=== PATIENT | male | born 1980 | race African-American/Black ===

== ENCOUNTER 2022-02-23 12:28 | Inpatient (IN) | payer OTHER ==
[~2022-02-23] VITALS: Ht 188 cm; Wt 86.6 kg
[2022-02-23 16:00] VITALS: BP 131/80
[2022-02-23] MEDS ORDERED: LORAZEPAM 1 MG TABLET FOR AGITATION PO PRN (17:30)
[2022-02-23] MEDS ORDERED: ACETAMINOPHEN ES 500 MG TABLET PO PRN (17:30)
[2022-02-23] MEDS ORDERED: MAGNESIUM HYDROXIDE 30 ML UDC PO PRN (17:30)
[2022-02-23] MEDS ORDERED: MAG HYDROX/AL HYDROX/SIMETH 30 ML UDC PO PRN (17:30)
[2022-02-23] MEDS ORDERED: IBUPROFEN 200 MG TABLET PO PRN (17:30)
--- NOTE | 2022-02-23 18:39 | NUR ---
ROLLER HELPER NOTES PATIENT ARRIVED ABLE TO AMBULATE ON OWN NO ASSISTIVE DEVICES, A&O X4, 41 YEAR OLD MALE HERE FOR A CLINICAL TRIAL FOR SCHIZOPHRENIA, PT SMOKES, PT STATES HE HEARS VOICES SOME SAY GOOD POSITIVE THINGS, SOME BAD NEGATIVE THINGS, I WILL TRY TO FIND OUT EXACTLY WHAT THEY ARE SAYING AND WHAT THEY SOUND LIKE TO TRY TO UNDERSTAND THIS FURTHER, HE STATES HE BELIEVES HE HAS A SOUL AND THIS LIFE CAN NOT BE ALL THAT THERE IS AND THAT HIS SOUL HAS TO GO SOMEWHERE AND THAT HE IS SCARED TO , PROVIDED REASSURANCE HE IS SAFE HERE AND NO ONE WILL HURT HIM WHILE HE IS HERE IN OUR CARE, ABLE TO COMPLETE ALL ADLS BY HIMSELF AND ABLE TO MAKE ALL NEEDS KNOWN, REQUESTS CIGARETTE BREAKS OFTEN AND SMOKES MENTHOL CIGARRETTES. WATER AND JUICE PROVIDED AND WILL CONTINUE TO MONITOR
--- NOTE | 2022-02-23 19:10 | NUR ---
GPS RN OPENING NOTE RECEIVED PATIENT UP IN ACTIVITY ROOM. PATIENT IS ALERT AND ORIENTED X 4. ABLE TO MAKE NEEDS KNOWN. APPEARANCE IS WELL KEPT. DENIES PAIN AT THIS TIME. AMBULATORY WITH STEADY GAIT. TOOK SHOWER TONIGHT. HAS SMOKE BREAKS. CONTINUES ON CLINICAL TRIAL. ENCOURAGED TO VERBALIZE FEELINGS AND NEEDS. WILL CONTINUE TO MONITOR FOR SAFETY .
[2022-02-23 19:47] VITALS: BP 134/79
[2022-02-23] MEDS: risperiDONE 1 MG TABLET PO SCH (21:18)
[2022-02-23] MEDS ORDERED: ZOLPIDEM TARTRATE 10 MG TABLET PO PRN ×2 (22:00)
--- NOTE | 2022-02-24 06:10 | NUR ---
GPS RN CLOSING NOTE PATIENT CURRENTLY SLEEPING IN BED. ALERT AND ORIENTED X 4. ABLE TO MAKE NEEDS KNOWN. APPEARANCE IS WELL KEPT. DENIES PAIN AT THIS TIME. AMBULATORY WITH STEADY GAIT. TOOK SHOWER TONIGHT. HAS SMOKE BREAKS. COMPLIANT WITH MEDICATIONS. CONTINUES ON CLINICAL TRIAL. ENCOURAGED TO VERBALIZE FEELINGS AND NEEDS. WILL ENDORSE PLAN OF CARE TO ONCOMING SHIFT.
[2022-02-24 08:00] VITALS: BP 139/89
--- NOTE | 2022-02-24 09:57 | NUR ---
RN-CO: PATIENT DENIED PAIN AND DISCOMFORTS. ABLE TO MAKE NEEDS KNOWN. GOES OUT TO SMOKE. HE HAS MILD ANXIETY AND IRRITABLE. I WILL CONTINUE TO MONITOR AND NOTIFY .
[2022-02-24 16:00] VITALS: BP 132/75
--- NOTE | 2022-02-24 19:15 | NUR ---
GPS RN NOTES: PATIENT IS IN HIS ROOM AWAKE, ALERT AND ORIENTED X3. ABLE TO MAKE NEEDS KNOWN. NO S/S OF ACUTE DISTRESS NOTED. PATIENT GOES OUT TO SMOKE. PATIENT IS NEEDY, IRRITABLE AT TIMES, COOPERATIVE TO CARE, INTERACTS WHEN ENGAGED. PATIENT STILL HEARING VOICES "TELLING HIM TO STAY AWAY FROM SOMEONE". PATIENT ADMITTED HAVING VISUAL HALLUCINATIONS. PATIENT STATES "SEEING TWO RABBITS". DENIES SI/HI AT THIS TIME. SAFETY PRECAUTIONS IN PLACE. WILL CONTINUE TO MONITOR Q15MIN ROUNDS FOR SAFETY AND BEHAVIOR.
[2022-02-24 19:54] VITALS: BP 123/90
[2022-02-24] MEDS: risperiDONE 1 MG TABLET PO SCH (21:16)
[2022-02-25 08:00] VITALS: BP 124/81
--- NOTE | 2022-02-25 09:00 | NUR ---
Received patient alert poor insight ,poor judgment ,easily irritable and anxious ,med compliant .Continue to monitor for safety q15 minutes redirect as needed .Encourage patient to verbalize feelings and thoughts .
--- NOTE | 2022-02-25 13:00 | NUR ---
Patient easily irritable and anxious ,visible in the unit ,socialize with select peers, patient hearing voices telling him different things ,no plan for self care .Continue to monitor for safety q15 minutes ,redirect as needed Encourage patient to verbalize feelings and thoughts .
[2022-02-25 16:00] VITALS: BP 131/83
--- NOTE | 2022-02-25 19:46 | NUR ---
GPS RN OPENING NOTES: RECEIVED PATIENT IN ROOM, AWAKE, A/O X4. APPROPRIATE AFFECT, PASSIVE, LABILE. PATIENT DENIES A/V HALLUCINATIONS, DENIES SI/HI AT THIS TIME. PATIENT IS COMPLIANT WITH TREATMENT REGIMEN. NO S/S OF DISTRESS. RESPIRATION EVEN AND UNLABORED WITH EQUAL RISE AND FALL OF THE CHEST, ON ROOM AIR. PATIENT ASKED FOR SNACKS. OFFERED FLUID AND SNACKS TOLERATED. BED IN LOW LOCKED POSITION, CALL CARTY WITHIN REACH. WILL CONTINUE TO MONITOR Q15 FOR MOOD, SAFETY AND BEHAVIOR.
[2022-02-25 20:00] VITALS: BP 129/86
[2022-02-25] MEDS: risperiDONE 1 MG TABLET PO SCH (22:12)
--- NOTE | 2022-02-25 22:12 | NUR ---
GPS RN NOTES: RISPERDAL 0.5MG WASTED PER PARTIAL DOSE ORDER. PATIENT IS COMPLIANT WITH MEDICATIONS.
--- NOTE | 2022-02-26 07:00 | NUR ---
GPS RN NOTES PATIENT WENT OUT FOR SMOKE BREAKS. WILL ENDORSE TO AM SHIFT NURSE FOR CONTINUITY OF CARE.
[2022-02-26 08:00] VITALS: BP 138/90
[2022-02-26 16:00] VITALS: BP 112/74
--- NOTE | 2022-02-26 19:30 | NUR ---
RN NOTES: PATIENT RESTING HIS ROOM AWAKE, ALERT . ABLE TO MAKE NEEDS KNOWN. NO S/S OF ACUTE DISTRESS NOTED. PATIENT NEEDY, IRRITABLE AT TIMES, COOPERATIVE TO CARE. PATIENT SOME TIMES HEARING VOICES "TELLING HIM TO STAY AWAY FROM SOMEONE". PATIENT ADMITTED HAVING VISUAL HALLUCINATION. DENIES SI/HI AT THIS TIME. SAFETY PRECAUTIONS IN PLACE. WILL CONTINUE TO MONITOR Q15MIN ROUNDS FOR SAFETY AND BEHAVIOR.
[2022-02-26 20:00] VITALS: BP 129/80
[2022-02-26] MEDS: risperiDONE 1 MG TABLET PO SCH (22:07)
--- NOTE | 2022-02-27 06:51 | NUR ---
GPS RN NOTES: PATIENT WENT OUT FOR FRESH AIR. WILL ENDORSE TO DAY SHIFT NURSE FOR CONTINUITY OF CARE.
--- NOTE | 2022-02-27 08:30 | NUR ---
GPS/RN RECEIVED PT IN ROOM, RESTING, A/O X4, LABILE. PATIENT DENIES A/VH AND SI/HI AT THIS TIME. PATIENT IS COMPLIANT WITH TREATMENT REGIMEN. NO S/S OF DISTRESS NOTED. ALL NEEDS ATTENDED AND ANTICIPATED . WILL CONTINUE TO MONITOR Q15 FOR MOOD, SAFETY AND BEHAVIOR.
[2022-02-27 16:00] VITALS: BP 123/58
--- NOTE | 2022-02-27 19:31 | NUR ---
RN NOTES: PATIENT IN HIS ROOM AWAKE, ALERT . ABLE TO MAKE NEEDS KNOWN. NO S/S OF ACUTE DISTRESS NOTED. PATIENT NEEDY, IRRITABLE AT TIMES, COOPERATIVE TO CARE. PATIENT SOME TIMES HEARING VOICES "TELLING HIM TO STAY AWAY FROM SOMEONE". PATIENT ADMITTED HAVING VISUAL HALLUCINATION. DENIES SI/HI AT THIS TIME. SAFETY PRECAUTIONS IN PLACE. WILL CONTINUE TO MONITOR Q15MIN ROUNDS FOR SAFETY AND BEHAVIOR.
[2022-02-27 20:00] VITALS: BP 133/73
[2022-02-28 16:00] VITALS: BP 121/65
--- NOTE | 2022-02-28 19:30 | NUR ---
GPS RN NOTE, RECEIVED PATIENT AWAKE AND IN BED, NO S/S OR COMPLAINTS OF PAIN AT THIS TIME. PATIENT IS DISPLAYING NO S/S OF APPARENT DISTRESS AT THIS TIME. PATIENT BREATHING IS UNLABORED WITH EQUAL RISE AND FALL OF THE CHEST. PATIENT IS ALERT AND ORIENTED X 3 ON ROOM AIR WITH A SPO2 99%. PATIENT IS COMPLIANT WITH MEDICATIONS, ANXIOUS, POLITE, MAKES NEEDS KNOWN, AND COOPERATIVE. PATIENT DENIES SUICIDAL AND HOMICIDAL IDEATIONS AT THIS TIME. PATIENT ASSISTED WITH TURNING AND REPOSITIONING Q2HR AND PRN FOR COMFORT AND CIRCULATION. PATIENT HAS NO NEEDS AT THIS TIME. PATIENT EDUCATED ON THE USE OF THE CALL CARTY. PATIENT BED SIDE RAILS UP X 2 FOR SAFETY. PATIENT BED IS LOCKED, LOW, WITH BED ALARM ON. WILL CONTINUE TO MONITOR THIS PATIENT Q15 MINUTES WITH THE HELP OF STAFF TO MAINTAIN SAFETY.
[2022-02-28 20:20] VITALS: BP 123/74
[2022-03-01 08:00] VITALS: BP 155/92
--- NOTE | 2022-03-01 09:13 | NUR ---
NOTED PATIENT AWAKE, SINGING INSIDE HIS ROOM AND TALKING TO SELF. HE DENIED PAIN AND DISCOMFORTS. HE IS EASILY IRRITATED IF WANTS NOT GRANTED RIGHT AWAY. I WILL CONTINUE TO MONITOR AND NOTIFY .
[2022-03-01 16:00] VITALS: BP 126/79
[2022-03-01 20:05] VITALS: BP 125/72
--- NOTE | 2022-03-01 22:34 | NUR ---
Patient appears to be paranoid,guarded,blunted affect,noted mumbling and talking to self,responding to internal stimuli.No s/s of EPS t/tremors noted.Will continue to monitor q15 min rounds for safety.
--- NOTE | 2022-03-02 09:00 | NUR ---
Patient alert ,verbally responsive ,med compliant ,no interaction with peers ,stay in his room all day ,no s/s of distress noted will continue to monitor for safety q15 minutes .
[2022-03-02] MEDS ORDERED: ZOLPIDEM TARTRATE 10 MG TABLET PO PRN (12:00)
[2022-03-02] MEDS ORDERED: LORAZEPAM 1 MG TABLET FOR AGITATION PO PRN (12:00)
--- NOTE | 2022-03-02 13:00 | NUR ---
Patient remains isolative and withdrawn, refused to attend groups,no s/s of distress noted will continue to monitor for safety q15 minutes .
[2022-03-02 20:35] VITALS: BP 132/81
--- NOTE | 2022-03-02 20:47 | NUR ---
Called Pharmacy for the investigational medication of the patient that is scheduled at 20:00.The medication was brought to the unit at 20:50.
[2022-03-02] MEDS: INVEST MED MK-8189-008-02 MISC 1 DOSE PO SCH (20:53)
--- NOTE | 2022-03-02 21:00 | NUR ---
Patient remains isolative,withdrawn,unmotivated,guarded and paranoid upon approach,no verbalization of thoughts and feelings.patient took his investigational medication tonight,no c/o of EPS ,tremors at this time.will continue to monitor q15 min rounds for safety.
--- NOTE | 2022-03-03 09:00 | NUR ---
Received patient alert verbally responsive ,poor insight ,poor judgment easily irritable and anxious ,med compliant,patient hearing voices Continue to monitor for safety q15 minutes ,redirect as needed Encourage patient to verbalize feelings and thoughts .
--- NOTE | 2022-03-03 13:00 | NUR ---
Patient isolative and withdrawn ,refused to attend groups, stay in his room all day ,no plan for self care .will continue to monitor for safety ,encourage patient to verbalize feelings and thoughts ,redirect as needed.
[2022-03-03 16:00] VITALS: BP 100/51
[2022-03-03] MEDS: INVEST MED MK-8189-008-02 MISC 1 DOSE PO SCH (20:07)
--- NOTE | 2022-03-04 06:53 | NUR ---
patient alert,oriented x 3-4,appears to be depressed,blunted affect,mumbling ,talking loud,no s/s of EPS tremors noted.Compliant with investigational medications.Will continue to monitor q15 min rounds for safety.
[2022-03-04 08:00] VITALS: BP 126/89
--- NOTE | 2022-03-04 13:07 | NUR ---
RN-CO: Patient is visible in the unit, watching tv and smokes most of the time. Patient denied pain and discomforts. Stated that he still has auditory and visual hallucinations that is on and off. We will continue to monitor and notify Dr Gomez.
[2022-03-04 20:00] VITALS: BP 125/81
[2022-03-04] MEDS: INVEST MED MK-8189-008-02 MISC 1 DOSE PO SCH (20:16)
--- NOTE | 2022-03-05 09:20 | NUR ---
RN-CO: PATIENT IS VISIBLE IN THE UNIT, REDIRECTABLE, FOLLOWS DIECTIONS. DENIED PAIN AND DISCOMFORTS. WE WILL CONTINUE TO MONITOR.
[2022-03-05 16:00] VITALS: BP 98/58
[2022-03-05 20:00] VITALS: BP 115/76
[2022-03-05] MEDS: INVEST MED MK-8189-008-02 MISC 1 DOSE PO SCH (20:17)
--- NOTE | 2022-03-05 20:22 | NUR ---
RN NOTES: PATIENT RESTING HIS ROOM AWAKE, ALERT . ABLE TO MAKE NEEDS KNOWN. NO S/S OF ACUTE DISTRESS NOTED.EASILY IRRITABLE AT TIMES, COOPERATIVE TO CARE. PATIENT SOME TIMES HEARING VOICES ". PATIENT ADMITTED,ENCOURAGED PT. TO VERBALIZED ANY FEELING OR CONCERN . DENIES SI/HI AT THIS TIME. SAFETY PRECAUTIONS PLACE. WILL CONTINUE TO MONITOR. Q15MIN ROUNDS FOR SAFETY AND BEHAVIOR.
[2022-03-06 08:00] VITALS: BP 133/66
--- NOTE | 2022-03-06 09:00 | NUR ---
GPS/RN RECEIVED PATIENT RESTING IN THE ROOM NO S/S DISTRESS NOTED AT THIS TIME DENIES SI/HI AVH. DENIED PAIN AND DISCOMFORTS. NO AM MEDS ADMINISTERED NOT SCHEDULED.ALL NEEDS ATTENDED AND ANTICIPATED. WILL CONTINUE MONITORING FOR SAFETY AND BEHAVIOR Q 15 MIN
--- NOTE | 2022-03-06 19:35 | NUR ---
GPS/RN OPENING NOTE: RECEIVED PATIENT RESTING IN THE ROOM, SLEEPING INTERMITTENTLY, NO S/S DISTRESS NOTED AT THIS TIME, DENIES SI/HI AVH. DENIED PAIN AND ANY DISCOMFORT. ALL NEEDS ATTENDED AND ANTICIPATED. WILL CONTINUE MONITORING FOR SAFETY AND BEHAVIOR Q 15 MIN
[2022-03-06] MEDS: INVEST MED MK-8189-008-02 MISC 1 DOSE PO SCH (20:08)
[2022-03-06 20:20] VITALS: BP 119/67
--- NOTE | 2022-03-07 06:31 | NUR ---
GPS RN NOTE PATIENT SLEPT WELL AT NIGHT, MED COMPLAINT. NO ACUTE CHANGES NOTED. WILL ENDORSE TO AM RN FOR CONTINUITY OF CARE.
--- NOTE | 2022-03-07 09:03 | NUR ---
Pt. step out in the unit at approximately 7:00 AM and until 9:00 AM pt. is not back yet. Dr. Gomez was called to notify and left a message.
--- NOTE | 2022-03-07 09:07 | NUR ---
Pt. is back in the unit at 0910. No distress and ambulatory.
--- NOTE | 2022-03-07 10:43 | NUR ---
RN Notes: Pt. ate 100% for breakfast.took shower and interacts minimally to staffs. Encouraged to verbalize feelings and motivated to attend group activity. No distress and no agitation noted. Needs attended and will continue to monitor for safety.
--- NOTE | 2022-03-07 15:51 | NUR ---
Pt. step out in the unit about 12:00 noon and not back yet until 1550, notified Dr. Gomez and said to call him when he comes back.
--- NOTE | 2022-03-07 17:45 | NUR ---
Pt. just came back in the unit. Ambulatory and without distress.
[2022-03-07 18:01] VITALS: BP 139/96
--- NOTE | 2022-03-07 18:08 | NUR ---
Dr. Gomez spoke to the pt. on the phone.
[2022-03-07] MEDS: INVEST MED MK-8189-008-02 MISC 1 DOSE PO SCH (20:03)
[2022-03-07 20:07] VITALS: BP 123/78
--- NOTE | 2022-03-07 20:30 | NUR ---
GPS RN NOTE, RECEIVED PATIENT AWAKE AND IN BED, NO S/S OR COMPLAINTS OF PAIN AT THIS TIME. PATIENT IS DISPLAYING NO S/S OF APPARENT DISTRESS AT THIS TIME. PATIENT BREATHING IS UNLABORED WITH EQUAL RISE AND FALL OF THE CHEST. PATIENT IS ALERT AND ORIENTED X 3 ON ROOM AIR WITH A SPO2 96%. PATIENT IS COMPLIANT WITH MEDICATIONS, ANXIOUS, POLITE, MAKES NEEDS KNOWN, AND COOPERATIVE. PATIENT DENIES SUICIDAL AND HOMICIDAL IDEATIONS AT THIS TIME. PATIENT ASSISTED WITH TURNING AND REPOSITIONING Q2HR AND PRN FOR COMFORT AND CIRCULATION. PATIENT HAS NO NEEDS AT THIS TIME. PATIENT EDUCATED ON THE USE OF THE CALL CARTY. PATIENT BED SIDE RAILS UP X 2 FOR SAFETY. PATIENT BED IS LOCKED, LOW, WITH BED ALARM ON. WILL CONTINUE TO MONITOR THIS PATIENT Q15 MINUTES WITH THE HELP OF STAFF TO MAINTAIN SAFETY.
[2022-03-08 16:00] VITALS: BP 137/85
--- NOTE | 2022-03-08 19:20 | NUR ---
GPS RN NOTES: PATIENT NOT IN UNIT, PER AM SHIFT PATIENT WENT OUT FOR A SMOKE. Addendum: 03/08/22 at 1943 by ADDIS BENAIVDES RN CHARTED ON WRONG PATIENT
--- NOTE | 2022-03-08 19:48 | NUR ---
GPS RN OPENING NOTES: RECEIVED PATIENT IN ROOM, AWAKE, A/O X4. APPROPRIATE AFFECT, CALM AND COOPERATIVE, PASSIVE. DENIES A/V HALLUCINATIONS, DENIES SI/HI AT THIS TIME. PATIENT IS COMPLIANT WITH TREATMENT REGIMEN. NO S/S OF DISTRESS. RESPIRATION EVEN AND UNLABORED WITH EQUAL RISE AND FALL OF THE CHEST, ON ROOM AIR. OFFERED FLUID AND SNACKS TOLERATED. BED IN LOW LOCKED POSITION, CALL CARTY WITHIN REACH. WILL CONTINUE TO MONITOR Q15 FOR MOOD, SAFETY AND BEHAVIOR.
[2022-03-08 19:55] VITALS: BP_SYST 122; BP_SYST 140; BP_DIAS 80; BP_DIAS 88
[2022-03-08] MEDS: INVEST MED MK-8189-008-02 MISC 1 DOSE PO SCH (20:19)
--- NOTE | 2022-03-08 22:26 | NUR ---
GPS RN NOTES: PATIENT REFUSED WEEKLY SKIN ASSESSMENT. PER PATIENT HIS SKIN IS INTACT.
[2022-03-09 08:00] VITALS: BP 129/90
--- NOTE | 2022-03-09 08:00 | NUR ---
Patient alert ,verbally responsive ,poor insight ,patient stay in his room all day,refused to atten ,no interaction with peers no plan for self care will continue to monitor for safety ,redirect as needed .
[2022-03-09] MEDS ORDERED: ZOLPIDEM TARTRATE 10 MG TABLET PO PRN (12:00)
[2022-03-09] MEDS ORDERED: LORAZEPAM 1 MG TABLET FOR AGITATION PO PRN (12:00)
--- NOTE | 2022-03-09 13:00 | NUR ---
Patient easily irritable and anxious,no interaction with peers ,refused to attend groups ,no plan for self care will continue to monitor for safety redirect as needed ,encourage patient to verbalize feelings and thoughts .
[2022-03-09 16:00] VITALS: BP 106/63
--- NOTE | 2022-03-09 19:25 | NUR ---
GPS RN OPENING NOTES: RECEIVED PATIENT IN ROOM, AWAKE, A/O X4. FLAT AFFECT, CALM, PASSIVE, WITHDRAWN. PATIENT ADMITS TO AUDITORY HALLUCINATIONS, PER PATIENT THE LAST ONE WAS THIS MORNING WITH VOICES TELLING HIM TO HURT OTHER PEOPLE BUT DENIES SI/HI AT THIS TIME. PATIENT STATED THE VOICES LAST FOR 10-15MINS. EDUCATION PROVIDED. PATIENT IS COMPLIANT WITH TREATMENT REGIMEN. NO S/S OF DISTRESS. RESPIRATION EVEN AND UNLABORED WITH EQUAL RISE AND FALL OF THE CHEST, ON ROOM AIR. OFFERED FLUID AND SNACKS TOLERATED. BED IN LOW LOCKED POSITION, CALL CARTY WITHIN REACH. WILL CONTINUE TO MONITOR Q15 FOR MOOD, SAFETY AND BEHAVIOR.
[2022-03-09 20:00] VITALS: BP 128/81
[2022-03-09] MEDS: INVEST MED MK-8189-008-02 MISC 1 DOSE PO SCH (20:07)
--- NOTE | 2022-03-10 18:55 | NUR ---
UNEVENTFUL DAY,VITALS STABLE.SOMEWHAT ISOLATIVE.
[2022-03-10 19:50] VITALS: BP 140/89
--- NOTE | 2022-03-10 19:50 | NUR ---
GPS RN NOTES PATIENT WAS TRANSFERRED TO [facility]. REPORT GIVEN TO ROLAN ALVAREZ FOR CONTINUITY OF CARE. PATIENT IS ALERT AND ORIENTED X4. NO S/SX OF ACUTE DISTRESS NOTED. PATIENT DENIES SI/HI/AVH AT THIS TIME. SENT PERSONAL BELONGINGS TO PATIENT.
--- NOTE | 2022-03-10 19:55 | NUR ---
MS RN NOTE RECEIVED PT FROM GPS, ACCOMPANIED BY GPS RN, TO [id number]. PT AMBULATORY WITH STEADY GAIT. PT A/OX4, PLEASANT BUT DOES NOT ENGAGE IN CONVERSATION, PASSIVE, COOPERATIVE. RESPIRATIONS EVEN/UNLABORED. ORIENTED TO UNIT, STAFF, SMOKING POLICY, HEALTH/MED TEACHINGS, AND OTHER SAFETY PROTOCOLS. PT VERBALIZED UNDERSTANDING. PT IN NO DISTRESS. SAFETY MEASURES IN PLACE. WILL CONT TO MONITOR.
[2022-03-10] MEDS: INVEST MED MK-8189-008-02 MISC 1 DOSE PO SCH (20:08)
--- NOTE | 2022-03-11 06:50 | NUR ---
RN NOTE PT AWAKE IN BED, A/OX4, DENIES ANY PAIN OR DISCOMFORT. SLEPT WELL DURING THE NIGHT. NO BEHAVIORAL ISSUES THIS SHIFT. INSTRUCTED TO CALL FOR ANY ASSISTANCE NEEDED. PT VERBALIZED UNDERSTANDING.
--- NOTE | 2022-03-11 07:50 | NUR ---
RN OPENING NOTE PATIENT IN BED RESTING, AWAKE, A/O X 4. NO S/S OF PAIN NOTED AT THIS TIME. ON ROOM AIR NO DISTRESS OR SHORTNESS OF BREATH NOTED. NO IV ACCESS, CLINICAL TRIAL PATIENT . FALL AND SAFETY MEASURES IN PLACE, BED IN LOW AND LOCK POSITION, CALL LIGHT AND TABLE WITHIN EASY REACH, SIDE RAILS UP X2. WILL CONTINUE TO MONITOR.
--- NOTE | 2022-03-11 18:54 | NUR ---
RN CLOSING NOTE PATIENT IN BED RESTING, AWAKE, A/O X 4. NO S/S OF PAIN NOTED AT THIS TIME. ON ROOM AIR NO DISTRESS OR SHORTNESS OF BREATH NOTED. NO IV ACCESS, CLINICAL TRIAL PATIENT. FALL AND SAFETY MEASURES IN PLACE, BED IN LOW AND LOCK POSITION, CALL LIGHT AND TABLE WITHIN EASY REACH, SIDE RAILS UP X2. WILL ENDORSE TO EQUAL EMPLOYMENT OPPORTUNITY OFFICER.
[2022-03-11] MEDS: INVEST MED MK-8189-008-02 MISC 1 DOSE PO SCH (20:13)
--- NOTE | 2022-03-12 06:35 | NUR ---
CLOSING NOTES: alert and orientated X$ goes out to smoke steady gait soft spoken no mentioned hallucinations this 12 hours slept soundly
--- NOTE | 2022-03-12 07:30 | NUR ---
MS RN OPENING NOTES RECEIVED PATIENT ON BED, AWAKE AND A/O X4. ON ROOM AIR TOLERATING WELL. NO SOB NOTED. NOT IN DISTRESS. WITH NO COMPLAINTS OF PAIN OR DISCOMFORT AT THIS TIME. WITH NO IV ACCESS. ON CLINICAL TRIAL STATUS. SAFETY MEASURES IN PLACED. CALL LIGHT WITHIN REACH. BED ON LOWEST LOCKED POSITION, SIDE RAILS UP X2. WILL CONTINUE TO MONITOR.
--- NOTE | 2022-03-12 19:33 | NUR ---
MS RN CLOSING NOTES PATIENT ON BED, AWAKE AND A/O X4. ON ROOM AIR TOLERATING WELL. NO SOB NOTED. NOT IN DISTRESS. WITH NO COMPLAINTS OF PAIN OR DISCOMFORT AT THIS TIME. WITH NO IV ACCESS. ON CLINICAL TRIAL STATUS. SAFETY MEASURES IN PLACED. CALL LIGHT WITHIN REACH. BED ON LOWEST LOCKED POSITION, SIDE RAILS UP X2. WILL ENDORSE TO NEXT SHIFT FOR ERIK.
[2022-03-12] MEDS: INVEST MED MK-8189-008-02 MISC 1 DOSE PO SCH (20:05)
[2022-03-13] VITALS: BP 96/51
--- NOTE | 2022-03-13 03:43 | NUR ---
RN CLOSING NOTES: alert and orientated X$ AMbulates in the hallway steady on his legs. Clinical Trial patient no hallucinations mentioned this 12 hour pleasent smiling and cooperative good eye contact speech clear
--- NOTE | 2022-03-13 07:00 | NUR ---
MS RN OPENING NOTES PATIENT LAYING IN BED, A/O X 4, ABLE TO MAKE NEEDS KNOWN. TOLERATING WELL ON ROOM AIR WITH NO SOB OR S/S RESPIRATORY DISTRESS. NO COMPLAINTS OF PAIN OR DISCOMFORT AT THIS TIME. SAFETY MEASURES IN PLACE: BED IN LOWEST LOCKED POSITION, SIDE RAILS UP X 2, CALL LIGHT WITHIN REACH. WILL CONTINUE TO MONITOR.
[2022-03-13 08:00] VITALS: BP 123/89
[2022-03-13 16:00] VITALS: BP 141/86
--- NOTE | 2022-03-13 19:10 | NUR ---
MS RN OPENING NOTES RECEIVED PATIENT ON BED; AWAKE, ALERT AND ORIENTED X4. ON ROOM AIR, TOLERATING WELL. NO SHORTNESS OF BREATH NOTED. NOT IN ANY FORM OF ACUTE DISTRESS. DENIES ANY PAIN OR DISCOMFORT AT THIS TIME. ON CLINICAL TRIAL. SAFETY MEASURES IMPLEMENTED: CALL BUTTON AND TABLE WITHIN EASY REACH, SIDE RAILS UP X2, BED IN LOWEST LOCKED POSITION. WILL CONTINUE TO MONITOR.
[2022-03-13 20:15] VITALS: BP 136/86
[2022-03-13] MEDS: INVEST MED MK-8189-008-02 MISC 1 DOSE PO SCH (20:16)
--- NOTE | 2022-03-14 06:50 | NUR ---
MS RN CLOSING NOTES PATIENT ON BED, AWAKE, A/O X4. ON ROOM AIR, TOLERATING WELL. NO SOB NOTED. IN NO ACUTE DISTRESS. NO COMPLAINTS OF PAIN OR DISCOMFORT AT THIS TIME. WITH NO IV ACCESS. SAFETY MEASURES IN PLACED. CALL LIGHT WITHIN REACH. BED ON LOWEST LOCKED POSITION. SIDE RAILS UP X2. ENDORSED TO NEXT SHIFT FOR ERIK.
--- NOTE | 2022-03-14 07:00 | NUR ---
MS RN OPENING NOTES PATIENT LAYING IN BED, A/O X4, TOLERATING WELL ON ROOM AIR WITH NO SOB OR RESPIRATORY DISTRESS. NO SOB NOTED. NO COMPLAINTS OF PAIN OR DISCOMFORT AT THIS TIME. SAFETY MEASURES IN PLACE: BED IN LOWEST LOCKED POSITION, SIDE RAILS UP X 2, CALL LIGHT WITHIN REACH. WILL CONTINUE TO MONITOR.
[2022-03-14 08:00] VITALS: BP 137/91
[2022-03-14 16:00] VITALS: BP 123/91
--- NOTE | 2022-03-14 19:00 | NUR ---
MS RN CLOSING NOTES PATIENT LAYING IN BED, A/O X4, TOLERATING WELL ON ROOM AIR WITH NO SOB OR RESPIRATORY DISTRESS. NO COMPLAINTS OF PAIN OR DISCOMFORT AT THIS TIME. SAFETY MEASURES IN PLACE: BED IN LOWEST LOCKED POSITION, SIDE RAILS UP X 2, CALL LIGHT WITHIN REACH. ALL NEEDS MET. WILL ENDORSE TO SUPERVISOR EDUCATION FOR ERIK.
--- NOTE | 2022-03-14 19:30 | NUR ---
MS RN NOTE RECEIVED PATIENT IN ROOM. NO S/S OF APPARENT DISTRESS. NO C/ PAIN. A/OX4. REMINDED OF 2000 STUDY MEDICATION, PATIENT ACKNOWLEDGED. WILL CONTINUE WITH PLAN OF CARE FOR PATIENT.
[2022-03-14 20:00] VITALS: BP 125/81
[2022-03-14] MEDS: INVEST MED MK-8189-008-02 MISC 1 DOSE PO SCH (20:00)
--- NOTE | 2022-03-15 07:17 | NUR ---
MS RN NOTE DID NOT EXHIBIT ANY [place], TREMORS, NOR PSYCH INSTABILITY. PATIENT WENT DOWN FOR ERIK REPORT. ENDORSED TO [facility] FOR CONTINUITY OF CARE.
[2022-03-15 08:48] VITALS: BP 127/80
--- NOTE | 2022-03-15 19:20 | NUR ---
MS/RN OPENING NOTE RECEIVED PATIENT UP IN ROOM. ALERT AND ORIENTED X 4. ABLE TO MAKE NEEDS KNOWN. DENIES PAIN AT THIS TIME. CONTINUES ON ROOM AIR WITH NO S/SX OF RESPIRATORY DISTRESS NOTED. NO IV ACCESS AT THIS TIME. CONTINUES ON CLINICAL TRIAL AND INVESTIGATIONAL MEDICATIONS. CALL LIGHT WITHIN REACH. ASPIRATION, FALL AND SAFETY PRECAUTIONS MAINTAINED. WILL CONTINUE TO MONITOR.
--- NOTE | 2022-03-15 19:28 | NUR ---
RN CLOSING NOTE PATIENT IN BED RESTING, AWAKE, A/O X 4. NO S/S OF PAIN NOTED AT THIS TIME. ON ROOM AIR NO DISTRESS OR SHORTNESS OF BREATH NOTED. NO IV ACCESS, CLINICAL TRIAL PATIENT . FALL AND SAFETY MEASURES IN PLACE, BED IN LOW AND LOCK POSITION, CALL LIGHT AND TABLE WITHIN EASY REACH, SIDE RAILS UP X2. WILL ENDORSE TO INSURANCE RISK MANAGER.
[2022-03-15] MEDS: INVEST MED MK-8189-008-02 MISC 1 DOSE PO SCH (20:03)
[2022-03-15 21:23] VITALS: BP 139/91
--- NOTE | 2022-03-16 07:30 | NUR ---
TERRAZZO JOURNEYMAN NOTES PT IN BED, AWAKE, ALERT AND ORIENTED, NO COMPLAINT OF PAIN, NOT IN DISTRESS, ON ROOM AIR, WALKING INSIDE HIS ROOM, CALL LIGHT WITHIN REACH, NEEDS ATTENDED.
[2022-03-16 08:00] VITALS: BP 105/58
[2022-03-16] MEDS ORDERED: ZOLPIDEM TARTRATE 10 MG TABLET PO PRN (12:00)
[2022-03-16 16:00] VITALS: BP 138/86
--- NOTE | 2022-03-16 18:42 | NUR ---
RN MS NOTES PT IN BED, AWAKE, ALERT AND ORIENTED, WATCHING TV, NO COMPLAINT OF PAIN OR ANY DISCOMFORT, NO BEHAVIOR PROBLEM NOTED.
--- NOTE | 2022-03-16 19:56 | NUR ---
MS/TELE/RN PATIENT IS IN ROOM AWAKE, ALERT, ORIENTED, COMFORTABLE, NO C/O PAIN, NO SIGNS OF DISTRESS NOTED, CALL LIGHT IN REACH. WILL MONITOR.
[2022-03-16 20:00] VITALS: BP 143/84
[2022-03-16] MEDS: INVEST MED MK-8189-008-02 MISC 1 DOSE PO SCH (20:04)
--- NOTE | 2022-03-17 00:58 | NUR ---
MS/TELE/RN PATIENT IS SLEEPING, NO SIGNS OF DISTRESS NOTED, CALL LIGHT IN REACH. WILL CONTINUE TO MONITOR.
--- NOTE | 2022-03-17 07:00 | NUR ---
MS/RN/TELE PATIENT IS IN ROOM AWAKE, ALERT, NO C/O PAIN, NO DISTRESS NOTED, ALL NEEDS ATTENDED AT THIS TIME, WILL CONTINUE TO MONITOR.
[2022-03-17 08:00] VITALS: BP 125/85
[2022-03-17 16:00] VITALS: BP 115/79
[2022-03-17] MEDS: LORAZEPAM 1 MG TABLET FOR AGITATION PO PRN (19:08)
--- NOTE | 2022-03-17 19:10 | NUR ---
uneventful day.down to smoke often.given ativan prn for nervousness.
--- NOTE | 2022-03-17 19:49 | NUR ---
MS RN OPENING NOTES RECEIVED PATIENT LYING IN BED, ON A PHONE CALL. A/O X4. NO APPARENT DISTRESS NOTED. BREATHING EVEN AND UNLABORED. I ASKED TO DO A SKIN ASSESSMENT, PATIENT TOOK OFF HIS JACKET AND LET ME CHECK HIS UPPER BODY. NO SKIN ISSUES NOTED. REFUSED FOR LOWER BODY SKIN ASSESSMENT, PATIENT WEARING JEANS. NO IV ACCESS. SAFETY MEASURES IN PLACE. WILL CONTINUE TO MONITOR.
[2022-03-17 20:00] VITALS: BP 136/71
[2022-03-17] MEDS: INVEST MED MK-8189-008-02 MISC 1 DOSE PO SCH (20:23)
--- NOTE | 2022-03-18 07:30 | NUR ---
MS RN CLOSING NOTES PATIENT LYING IN BED AWAKE. A/O X4. NO C/O PAIN AT THIS TIME. TOLERATING ROOM AIR WELL. V/S WNL. NO ANXIETY OR UNWANTED BEHAVIOR NOTED. NO IV ACCESS. ALL NEEDS ATTENDED. KEPT DRY AND COMFORTABLE. SAFETY MEASURES IN PLACE: BED LOCKED, SIDE RAILS UP X2, CALL LIGHT WITHIN REACH. WILL ENDORSE TO AM NURSE FOR CONTINUITY OF CARE.
[2022-03-18 08:00] VITALS: BP 125/88
[2022-03-18 16:00] VITALS: BP 125/88
--- NOTE | 2022-03-18 18:22 | NUR ---
NO BEHAVIOR ISSUES TODAY.DAY UNEVENTFUL.DOWN TO LOBBY TO SMOKE FREQ.
--- NOTE | 2022-03-18 19:34 | NUR ---
MS RN OPENING NOTES RECEIVED PATIENT LYING IN BED AWAKE. A/O X4. DENIES PAIN AT THIS TIME. ABLE TO VERBALIZE NEEDS. REQUESTED PRN ATIVAN. BREATHING EVEN AND NON-LABORED ON ROOM AIR. BILATERAL EYE REDNESS NOTED. NO IV ACCESS. INSTRUCTED PATIENT TO NOTIFY NURSE IF HE HAPPENS TO HAVE SKIN ISSUES WHILE IN THE HOSPITAL SINCE PATIENT REFUSES SKIN CHECK. SAFETY MEASURES IN PLACE. WILL CONTINUE PLAN OF CARE.
[2022-03-18] MEDS: LORAZEPAM 1 MG TABLET FOR AGITATION PO PRN (19:37)
--- NOTE | 2022-03-18 19:37 | NUR ---
MS RN NOTES PRN ATIVAN REQUESTED BY PATIENT. TOLERATED WELL.
[2022-03-18 20:00] VITALS: BP 138/83
[2022-03-18] MEDS: INVEST MED MK-8189-008-02 MISC 1 DOSE PO SCH (20:03)
--- NOTE | 2022-03-19 06:25 | NUR ---
MS GONGORA CLOSING NOTES PATIENT LYING IN BED WITH EYES CLOSED. EASY TO AROUSE. A/O X4. TOLERATING ROOM AIR WELL. NO C/O PAIN OR DISCOMFORT AT THIS TIME. HAS RIGHT ANTECUBITAL IV ACCESS #20G WITH LR RUNNING AT 100 ML/HR. INTACT, PATENT AND FLUSHING. LEFT LEG ELEVATED ON PILLOW WITH DRESSING DRY AND INTACT. URINE OUTPUT 500 ML. SAFETY PRECAUTIONS IN PLACE: BED LOW AND LOCKED, SIDE RAILS UP X2, CALL LIGHT WITHIN REACH. Addendum: 03/19/22 at 0629 by April DINA GONGORA INCORRECT ENTRY
--- NOTE | 2022-03-19 06:30 | NUR ---
MS RN CLOSING NOTES PATIENT LYING IN BED AWAKE. A/O X4. TOLERATING ROOM AIR WELL. NO C/O PAIN OR DISCOMFORT AT THIS TIME. NO UNWANTED BEHAVIOR NOTED. NO IV ACCESS. SAFETY PRECAUTIONS IN PLACE: BED LOW AND LOCKED, SIDE RAILS UP X2, CALL LIGHT WITHIN REACH.
--- NOTE | 2022-03-19 07:06 | NUR ---
MS RN OPENING NOTES RECEIVED PATIENT AWAKE LYING IN BED . A/O X4. NO PAIN OR DISCOMFORT AT THIS TIME. NO SOB NOTED. NO RESPIRATORY DISTRESS NOTED. BREATHING EVEN AND UNLABORED. ON ROOM AIR. NO IV ACCESS. NO BEHAVIORAL ISSUES NOTED. SAFETY PRECAUTIONS IN PLACE: BED IN THE LOWEST POSITION AND LOCKED, SIDE RAILS UP X2, CALL LIGHT AND TABLE WITHIN REACH.WILL [id number] TO MONITOR.
--- NOTE | 2022-03-19 18:30 | NUR ---
MS RN CLOSING NOTES PATIENT AWAKE LYING IN BED . A/O X4. NO PAIN OR DISCOMFORT AT THIS TIME. NO SOB NOTED. NO RESPIRATORY DISTRESS NOTED. BREATHING EVEN AND UNLABORED. ON ROOM AIR. NO IV ACCESS. NO BEHAVIORAL ISSUES NOTED. SAFETY PRECAUTIONS IN PLACE: BED IN THE LOWEST POSITION AND LOCKED, SIDE RAILS UP X2, CALL LIGHT AND TABLE WITHIN REACH.WILL ENDORSE FOR ERIK TO INCOMING SHIFT NURSE.
--- NOTE | 2022-03-19 19:46 | NUR ---
MS RN OPENING NOTES: RECEIVED PATIENT AWAKE IN BED, BED IN LOW POSITION CALL LIGHTS WITHIN REACH, NO COMPLAIN OF PAIN AND DISCOMFORT AT THIS TIME, PATIENT ON CLINICAL TRIAL NO CHANGES IN BEHAVIOR WAS OBSERVED, PATIENT A/OX4 ABLE MAKE NEEDS KNOWN, ON ROOM AIR SATURATING WELL, PATIENT KEPT CLEAN AND DRY ALL NEEDS MET WILL CONTINUE TO MONITOR.
[2022-03-19 20:00] VITALS: BP 123/64
[2022-03-19] MEDS: INVEST MED MK-8189-008-02 MISC 1 DOSE PO SCH (20:10)
--- NOTE | 2022-03-20 06:28 | NUR ---
MS RN CLOSING NOTES: PATIENT SLEEP IN BED COMFORTABLY, AROUSABLE TO VERBAL STIMULI, BED IN LOW POSITION, CALL LIGHTS WITHIN REACH, NO COMPLAIN OF PAIN AND DISCOMFORT AT THIS TIME, PATIENT IS A/O X4 ABLE TO MAKE NEEDS KNOWN, ON CLINICAL TRIAL, NO CHANGES IN BEHAVIOR WAS OBSERVED, PATIENT KEPT CLEAN AND DRY ALL NEEDS MET, ENDORSE TO INCOMING SHIFT.
--- NOTE | 2022-03-20 07:00 | NUR ---
MS RN OPENING NOTES PATIENT OFF OF UNIT AT THIS TIME, WILL COMPLETE PATIENT ASSESSMENT UPON RETURN TO UNIT.
--- NOTE | 2022-03-20 08:00 | NUR ---
MS RN NOTES PATIENT LAYING IN BED, A/O X 4, ABLE TO MAKE NEEDS KNOWN. TOLERATING WELL ON ROOM AIR WITH NO SOB OR S/S RESPIRATORY DISTRESS. SAFETY MEASURES IN PLACE: BED IN LOWEST LOCKED POSITION, SIDE RAILS UP X 2, CALL LIGHT WITHIN REACH. WILL CONTINUE TO MONITOR.
[2022-03-20 08:42] VITALS: BP 119/70
--- NOTE | 2022-03-20 19:00 | NUR ---
MS RN CLOSING NOTES PATIENT LAYING IN BED, A/O X 4, ABLE TO MAKE NEEDS KNOWN. TOLERATING WELL ON ROOM AIR WITH NO SOB OR S/S RESPIRATORY DISTRESS. SAFETY MEASURES IN PLACE: BED IN LOWEST LOCKED POSITION, SIDE RAILS UP X 2, CALL LIGHT WITHIN REACH. WILL ENDORSE TO APPRAISER REAL ESTATE FOR ERIK.
--- NOTE | 2022-03-20 19:15 | NUR ---
MS RN OPENING NOTES RECEIVED PATIENT IN BED; AWAKE, ALERT AND ORIENTED X4. ON ROOM AIR, TOLERATING WELL. NO SHORTNESS OF BREATH NOTED. NOT IN ANY FORM OF ACUTE DISTRESS. DENIES ANY PAIN OR DISCOMFORT AT THIS TIME. ON CLINICAL TRIAL. ABLE TO MAKE NEEDS KNOWN. SAFETY MEASURES IMPLEMENTED: CALL BUTTON AND TABLE WITHIN EASY REACH, SIDE RAILS UP X2, BED IN LOWEST LOCKED POSITION. WILL CONTINUE TO MONITOR.
[2022-03-20 20:00] VITALS: BP 124/76
[2022-03-20] MEDS: INVEST MED MK-8189-008-02 MISC 1 DOSE PO SCH (20:06)
[2022-03-20 20:15] VITALS: BP 124/76
--- NOTE | 2022-03-21 06:55 | NUR ---
MS RN CLOSING NOTES PATIENT IN BED, AWAKE, A/O X4. ON ROOM AIR, TOLERATING WELL. NO SOB NOTED. IN NO ACUTE DISTRESS. NO COMPLAINTS OF PAIN OR DISCOMFORT AT THIS TIME. WITH NO IV ACCESS. SAFETY MEASURES IN PLACED. CALL LIGHT WITHIN REACH. BED ON LOWEST LOCKED POSITION. SIDE RAILS UP X2. ENDORSED TO MORNING SHIFT FOR ERIK.
--- NOTE | 2022-03-21 07:30 | NUR ---
MS RN OPENING NOTES PATIENT IN ROOM, AWAKE, A/O X4. ON ROOM AIR WITH NO COMPLAINTS VERBALIZED AT THIS TIME. ON CLINICAL OBSERVATION. NO IV ACCESS. SAFETY MEASURES IN PLACED. CALL LIGHT WITHIN REACH. BED ON LOWEST LOCKED POSITION. SIDE RAILS UP X2. WILL CONTINUE TO MONITOR FOR ANY CHANGES IN MENTATION
[2022-03-21 08:00] VITALS: BP 119/79
--- NOTE | 2022-03-21 18:57 | NUR ---
MS RN CLOSING NOTES PATIENT IN ROOM, AWAKE. ON AND OFF UNIT THROUGH OUT DAY. NO COMPLAINTS EXPRESSED. NO ACUTE CHANGES NOTED. SAFETY PRECAUTIONS MAINTAINED. WILL ENDORSE TO THE SPEECH PATHOLOGY SUPERVISOR NURSE FOR ERIK
[2022-03-21 20:00] VITALS: BP 122/87
--- NOTE | 2022-03-21 20:06 | NUR ---
RN OPENING NOTE PATIENT FOUND IN ROOM SITTING, AT THE EDGE OF THE BED. PATIENT IS A/O X 4 ABLE TO MAKE NEEDS KNOWN. PATIENT IS A CLINICAL TRIAL PATIENT OF DR. COBURN. PATIENT CAML AND COOPERATIVE AT THIS TIME. GIVEN STUDY MEDS SUCCESSFULLY. PATIENT DOES NOT REPORT ANY PAIN OR DISCOMFORT. SAFETY MEASURES IN PLACE: BED LOCKED AND IN LOWEST POSITION, CALL LIGHT WITHIN REACH, SIDE RAILS UP. WILL MONITOR PATIENT CLOSELY.
[2022-03-21] MEDS: INVEST MED MK-8189-008-02 MISC 1 DOSE PO SCH (20:07)
--- NOTE | 2022-03-22 06:44 | NUR ---
RN CLOSING NOTE PATIENT AWAKE, SEEN AT HALLWAY, ON THE WAY OUT OF THE UNIT. PATIENT IS A/O X 4 ABLE TO MAKE NEEDS KNOWN. PATIENT IS A CLINICAL TRIAL PATIENT OF DR. COBURN. PATIENT REMAINED CALM AND COOPERATIVE DURING THE SHIFT. NO ADVERSE REACTIONS FROM STUDY MEDS. PATIENT DOES NOT REPORT ANY PAIN OR DISCOMFORT. SAFETY MEASURES IN PLACE: BED LOCKED AND IN LOWEST POSITION, CALL LIGHT WITHIN REACH, SIDE RAILS UP. ALL NEEDS MET AND ATTENDED. ALL ORDERS CARRIED OUT. WILL ENDORSE TO DAY SHIFT NURSE FOR ERIK.
--- NOTE | 2022-03-22 07:00 | NUR ---
MS RN OPENING NOTE PATIENT OFF OF UNIT AT THIS TIME, AMBULATORY PRIVILEGES PER CLINICAL TRIAL STATUS, WILL PERFORM ASSESSMENT UPON PATIENT RETURN.
[2022-03-22 08:00] VITALS: BP 132/85
--- NOTE | 2022-03-22 09:00 | NUR ---
MS RN NOTE PATIENT LAYING IN BED, A/O X 4, ABLE TO MAKE NEEDS KNOWN. TOLERATING WELL ON ROOM AIR WITH NO SOB OR S/S RESPIRATORY DISTRESS. NO COMPLAINTS OF PAIN OR DISCOMFORT AT THIS TIME. SAFETY MEASURES IN PLACE: BED LOCKED AND IN LOWEST POSITION, CALL LIGHT WITHIN REACH, SIDE RAILS UP. ALL NEEDS MET. ALL ORDERS CARRIED OUT. WILL ENDORSE TO SOLAR ENERGY SYSTEM INSTALLER HELPER FOR ERIK.
[2022-03-22 16:00] VITALS: BP 133/94
--- NOTE | 2022-03-22 19:00 | NUR ---
MS RN CLOSING NOTE PATIENT LAYING IN BED, A/O X 4, ABLE TO MAKE NEEDS KNOWN. TOLERATING WELL ON ROOM AIR WITH NO SOB OR S/S RESPIRATORY DISTRESS. NO COMPLAINTS OF PAIN OR DISCOMFORT AT THIS TIME. SAFETY MEASURES IN PLACE: BED LOCKED AND IN LOWEST POSITION, CALL LIGHT WITHIN REACH, SIDE RAILS UP. ALL NEEDS MET. ALL ORDERS CARRIED OUT. WILL ENDORSE TO DECK HAND FOR ERIK.
--- NOTE | 2022-03-22 19:27 | NUR ---
MS RN NOTES RECEIVED PATIENT SITTING ON BEDSIDE. A/O X 4. BREATHING EVEN AND UNLABORED ON ROOM AIR. NOT IN APPARENT DISTRESS. NO C/O PAIN OR DISCOMFORT AT THIS TIME. NO IV ACCESS. INFORMED PATIENT WE WILL HOLD HIS AMBIEN AND ATIVAN AFTER 2200. SAFETY MEASURES IN PLACE. WILL CONTINUE PLAN OF CARE.
[2022-03-22 20:00] VITALS: BP 130/78
[2022-03-22] MEDS: INVEST MED MK-8189-008-02 MISC 1 DOSE PO SCH (20:08)
[2022-03-22] MEDS: LORAZEPAM 1 MG TABLET FOR AGITATION PO PRN (20:37)
--- NOTE | 2022-03-22 20:38 | NUR ---
MS RN NOTES PATIENT REQUESTED FOR PRN ATIVAN, MILD ANXIETY NOTED. 1 MG GIVEN AND TOLERATED WELL.
--- NOTE | 2022-03-23 02:30 | NUR ---
MS RN NOTES REPORT GIVEN TO KEVIN FOR ERIK.
--- NOTE | 2022-03-23 06:51 | NUR ---
MS RN NOTES IN ROOM SLEEPING,NO BEHAVIORAL PROBLEMS NOTED.ENDORSED
--- NOTE | 2022-03-23 07:47 | NUR ---
MS RN OPENING NOTES: RECEIVED PATIENT IN BED AWAKE, ALERT AND ORIENTED X 4 ABLE TO VERBALIZED NEEDS. NO SOB/NO CARDIAC DISTRESS, NORMAL AND UNLABORED BREATHING PATTERN NOTED. SAFETY PRECAUTIONARY MEASURES MAINTAINED: BED IN LOWEST POSITION AND LOCKED, CALL LIGHT IN EASY REACH FOR HELP.
[2022-03-23 08:00] VITALS: BP 140/89
[2022-03-23] MEDS ORDERED: LORAZEPAM 1 MG TABLET FOR AGITATION PO PRN (12:00)
[2022-03-23] MEDS ORDERED: ZOLPIDEM TARTRATE 10 MG TABLET PO PRN (12:00)
[2022-03-23 16:00] VITALS: BP 121/87
--- NOTE | 2022-03-23 19:04 | NUR ---
MS RN CLOSING NOTES: RECEIVED PATIENT IN BED WATCHING TELEVISION, ALERT AND ORIENTED X 4 ABLE TO VERBALIZED NEEDS. NO SOB/NO CARDIAC DISTRESS, NORMAL AND UNLABORED BREATHING PATTERN NOTED AND ON ROOM AIR TOLERATING WELL. SAFETY PRECAUTIONARY MEASURES MAINTAINED: BED IN LOWEST POSITION AND LOCKED, SIDE RAILS UP X2.CALL LIGHT IN EASY REACH FOR HELP. CALL LIGHT AND BED SIDE TABLE ON EASY REACH.
--- NOTE | 2022-03-23 19:50 | NUR ---
MS RN OPENING NOTES: RECEIVED PATIENT IN BED AWAKE, ALERT AND ORIENTED X 4 ABLE TO VERBALIZED NEEDS. NO SOB/DISTRESS NOTED.CALL LIGHT WITHIN REACH. SAFETY MEASURE INPLACED BED IN LOWEST POSITION AND LOCKED, WILL CONTINUE TO MONITOR.
[2022-03-23 20:00] VITALS: BP 136/78
[2022-03-23] MEDS: INVEST MED MK-8189-008-02 MISC 1 DOSE PO SCH (20:27)
--- NOTE | 2022-03-24 07:30 | NUR ---
MS RN OPENING NOTES PATIENT AWAKE AND LYING DOWN ON THE BED. PATIENT IS A/O X 4 ABLE TO MAKE NEEDS KNOWN. PATIENT IS A CLINICAL TRIAL PATIENT OF DR. COBURN. PATIENT REMAINED CALM AND COOPERATIVE DURING THE SHIFT. NO ADVERSE REACTIONS FROM STUDY MEDS. PATIENT DOES NOT REPORT ANY PAIN OR DISCOMFORT. SAFETY MEASURES IN PLACE: BED LOCKED AND IN LOWEST POSITION, CALL LIGHT WITHIN REACH, SIDE RAILS UP. ALL NEEDS MET AND ATTENDED. ALL ORDERS CARRIED OUT. WILL CONTINUE TO MONITOR FOR ERIK.
[2022-03-24 08:00] VITALS: BP 130/77
[2022-03-24 16:00] VITALS: BP 120/91
--- NOTE | 2022-03-24 18:29 | NUR ---
MS RN CLOSING NOTES PATIENT AWAKE AND LYING DOWN ON THE BED. PATIENT IS A/O X 4 ABLE TO MAKE NEEDS KNOWN. PATIENT IS A CLINICAL TRIAL PATIENT OF DR. COBURN. PATIENT REMAINED CALM AND COOPERATIVE DURING THE SHIFT. NO ADVERSE REACTIONS FROM STUDY MEDS. PATIENT DOES NOT REPORT ANY PAIN OR DISCOMFORT. SAFETY MEASURES IN PLACE: BED LOCKED AND IN LOWEST POSITION, CALL LIGHT WITHIN REACH, SIDE RAILS UP. ALL NEEDS MET AND ATTENDED. ALL ORDERS CARRIED OUT. WILL ENDORSE TO ONCOMING SHIFT FOR ERIK.
[2022-03-24 20:00] VITALS: BP 140/78
[2022-03-24] MEDS: INVEST MED MK-8189-008-02 MISC 1 DOSE PO SCH (20:29)
--- NOTE | 2022-03-25 06:20 | NUR ---
MS/RN CLOSING NOTE PATIENT CURRENTLY SLEEPING IN BED. ALERT AND ORIENTED X 4. ABLE TO MAKE NEEDS KNOWN. DENIES PAIN AT THIS TIME. CONTINUES ON ROOM AIR WITH NO S/SX OF RESPIRATORY DISTRESS NOTED. NO IV ACCESS AT THIS TIME. CONTINUES ON CLINICAL TRIAL AND INVESTIGATIONAL MEDICATIONS. CALL LIGHT WITHIN REACH. ASPIRATION, FALL AND SAFETY PRECAUTIONS MAINTAINED. WILL ENDORSE PLAN OF CARE TO ONCOMING SHIFT RN.
--- NOTE | 2022-03-25 07:35 | NUR ---
MS/RN OPENING NOTES RECEIVED PATIENT IN BED. A/O X4. ABLE TO MAKE NEEDS KNOWN. DENIES PAIN AT THIS TIME. ON RA WITH NO S/SX OF RESPIRATORY DISTRESS NOTED. NO IV ACCESS AT THIS TIME. ON CLINICAL TRIAL AND INVESTIGATIONAL MEDICATIONS. CALL LIGHT WITHIN REACH. ASPIRATION, FALL AND SAFETY PRECAUTIONS IN PLACE. WILL CONTINUE TO MONITOR
[2022-03-25 08:00] VITALS: BP 114/78
[2022-03-25 16:00] VITALS: BP 124/74
--- NOTE | 2022-03-25 19:32 | NUR ---
RN NOTES PATIENT RESTING IN BED. NO NEEDS REQUESTED AT THIS TIME. NO CHANGE IN MENTATION THROUGH OUT SHIFT. ENDORSED REPORT TO THE SHRIMP TRAWLER CAPTAIN NURSE FOR ERIK
--- NOTE | 2022-03-25 19:38 | NUR ---
RN OPENING NOTES RECEIVED PT IN BED, AWAKE. AOx4, ABLE TO MAKE NEEDS KNOWN. ON RA AND TOLERATING WELL. NO SOB NOTED. NO S/SX OF RESPIRATORY DISTRESS NOTED. NO IV ACCESS SINCE PATIENT IS CLINICAL TRIAL. COMPLAINING OF HEARTBURN. ADMINISTERED MAALOX. SAFETY PRECAUTIONS IN PLACE: BED IN LOWEST, LOCKED POSITION, SIDERAILS UPx2, AND BRAKES ON. TABLE AND CALL LIGHT WITHIN REACH. WILL CONTINUE TO MONITOR.
[2022-03-25] MEDS: INVEST MED MK-8189-008-02 MISC 1 DOSE PO SCH ×2 (19:59→20:21)
[2022-03-25 20:00] VITALS: BP 107/65
--- NOTE | 2022-03-25 20:21 | NUR ---
PT WAS NOT IN ROOM AT 2000 TO ADMINISTER INVESTIGATIONAL MEDICATION.
--- NOTE | 2022-03-26 06:50 | NUR ---
RN CLOSING NOTES PT IN BED, AWAKE. AOx4, ABLE TO MAKE NEEDS KNOWN. ON RA AND TOLERATING WELL. NO SOB NOTED. NO S/SX OF RESPIRATORY DISTRESS NOTED. NO IV ACCESS SINCE PATIENT IS CLINICAL TRIAL. ALL ORDERS CARRIED OUT. ALL NEEDS MET. PT KEPT CLEAN AND DRY. PRECAUTIONS IN PLACE: BED IN LOWEST, LOCKED POSITION, SIDERAILS UPx2, AND BRAKES ON. TABLE AND CALL LIGHT WITHIN REACH. WILL ENDORSE TO ONCOMING SHIFT FOR ERIK.
--- NOTE | 2022-03-26 07:35 | NUR ---
ms rn received on bed, awake,alert,oriented x4, a,clinical trial patient of dr. cool, will monitor patient.
[2022-03-26 08:24] VITALS: BP 132/98
--- NOTE | 2022-03-26 09:00 | NUR ---
ms rn no meds to give at this time.
--- NOTE | 2022-03-26 11:00 | NUR ---
ms rn patient went down for smoking.
--- NOTE | 2022-03-26 18:25 | NUR ---
ms rn on bed, sleeping no distress noted.
--- NOTE | 2022-03-26 19:30 | NUR ---
RN NOTE PATIENT WAS OUT OF THE UNIT FOR SMOKE BREAK AND CAME BACK AT THIS TIME. WILL CONTINUE TO MONITOR.
--- NOTE | 2022-03-26 19:50 | NUR ---
MS/RN OPENING NOTES RECEIVED PATIENT RESTING IN BED. A/O X4. ABLE TO MAKE NEEDS KNOWN. DENIES PAIN AT THIS TIME. ON RA WITH NO S/SX OF RESPIRATORY DISTRESS NOTED. NO IV ACCESS AT THIS TIME. ON CLINICAL TRIAL AND INVESTIGATIONAL MEDICATIONS. CALL LIGHT WITHIN REACH. ASPIRATION, FALL AND SAFETY PRECAUTIONS IN PLACE. WILL CONTINUE TO MONITOR
[2022-03-26 20:00] VITALS: BP 138/84
[2022-03-26] MEDS: INVEST MED MK-8189-008-02 MISC 1 DOSE PO SCH (20:02)
[2022-03-26 20:10] VITALS: BP 138/84
--- NOTE | 2022-03-27 01:04 | NUR ---
PATIENT IS SLEEPING COMFORTABLY AT THIS TIME. NO ACUTE CHANGES NOTED.
--- NOTE | 2022-03-27 06:50 | NUR ---
PATIENT WENT OUT FOR SMOKE BREAK.
--- NOTE | 2022-03-27 07:06 | NUR ---
PATIENT BACK IN THE UNIT FROM SMOKE BREAK.
--- NOTE | 2022-03-27 07:45 | NUR ---
MS RN OPENING NOTES: RECEIVED PATIENT RESTING IN BED, ALERT AND ORIENTED X4 AND ABLE TO VERBALIZED NEEDS. NO SOB OR CARDIAC DISTRESS NOTED. KEPT RESTED AND COMFORTABLE. NO IV ACCESS. SAFETY MEASURES MAINTAINED: BED LOCKED AND IN LOWEST POSITION,SIDERAILS UP X2. CALL LIGHT WITHIN EASY REACH FOR HELP/ASSISTANCE.
[2022-03-27 08:00] VITALS: BP 126/78
[2022-03-27 16:00] VITALS: BP 119/84
--- NOTE | 2022-03-27 18:45 | NUR ---
MS RN CLOSING NOTES: PATIENT IN BED WATCHING TV, ALERT AND ORIENTED X4 AND ABLE TO VERBALIZED NEEDS. NO SOB OR CARDIAC DISTRESS NOTED. KEPT RESTED AND COMFORTABLE. NO IV ACCESS. SAFETY MEASURES MAINTAINED: BED LOCKED AND IN LOWEST POSITION,SIDERAILS UP X2. CALL LIGHT WITHIN EASY REACH FOR HELP/ASSISTANCE. ENDORSED TO TOOL MECHANIC NURSE FOR CONTINUITY OF CARE.
--- NOTE | 2022-03-27 19:30 | NUR ---
MS RN OPENING NOTES RECEIVED PATIENT WALKING IN HALLWAY. A/O X4. NO C/O PAIN OR DISCOMFORT AT THIS TIME. BREATHING EVEN AND NON-LABORED ON ROOM AIR. SEEMS RELAX AND IN GOOD MOOD. NO IV ACCESS. SAFETY MEASURES IN PLACE. WILL CONTINUE PLAN OF CARE.
[2022-03-27 20:00] VITALS: BP 132/89
[2022-03-27] MEDS: INVEST MED MK-8189-008-02 MISC 1 DOSE PO SCH (20:50)
--- NOTE | 2022-03-28 07:10 | NUR ---
MS RN OPENING NOTES RECEIVED PATIENT AWAKE, PATIENT IS A/O X4. NO C/O PAIN OR DISCOMFORT AT THIS TIME. ON ROOM AIR WITH EVEN AND NON-LABORED ON ROOM AIR. NO IV ACCESS. DOES NOT DEMONSTRATE ANY UNTOWARD BEHAVIOR. SAFETY MEASURES IN PLACE, WITH BED IN LOWEST LOCKED POSITION. CALL LIGHT WITHIN REACH.
--- NOTE | 2022-03-28 07:30 | NUR ---
MS RN CLOSING NOTES PT LYING IN BED WITH EYES CLOSED. EASY TO AROUSE. A/O X4. NOT IN APPARENT DISTRESS. NO SOB OR NOTED. NO IV ACCESS. REFUSED SKIN CHECK AND VERBALIZED HE DOESN'T HAVE ANY SKIN ISSUES. SAFETY PRECAUTIONS IN PLACE: BED LOW AND LOCKED, SIDE RAILS UP X2, CALL LIGHT WITHIN REACH.
[2022-03-28 08:00] VITALS: BP 124/78
--- NOTE | 2022-03-28 15:58 | NUR ---
MS RN NOTE PATIETN REMAINS STABLE, WITH NO UNTOWARD BEHAVIOR NOTED. NEEDS ATTENDED. ENDORSED FOR CONTINUITY OF CARE.
--- NOTE | 2022-03-28 16:30 | NUR ---
ms maryann received report from Bharath Metcalf, patient inside room ,no distress noted.
--- NOTE | 2022-03-28 19:19 | NUR ---
ms rn inside room, no distress noted,all meeds attended.
[2022-03-28 20:00] VITALS: BP 124/79
--- NOTE | 2022-03-28 20:00 | NUR ---
RECEIVED PATIENT IN BED, ALERT/ORIENTED X4, ROOM AIR, NO DISTRESS, WILL GIVE INVESTIGATIONAL DRUG SCHEDULED.
[2022-03-28] MEDS: INVEST MED MK-8189-008-02 MISC 1 DOSE PO SCH (20:19)
--- NOTE | 2022-03-29 05:41 | NUR ---
PATIENT CALM AND COOPERATIVE, NO BEHAVIOR DISTURBANCE, KEPT TO SELF, WILL BE NPO TONIGHT AFTER 2199, NO ATIVAN AND AMBIEN AFTER 0 TONIGHT
--- NOTE | 2022-03-29 07:12 | NUR ---
MS RN OPENING NOTES RECEIVED PATIENT AWAKE ON BED, PATIENT IS A/O X4. NO C/O PAIN OR DISCOMFORT AT THIS TIME. ON ROOM AIR WITH EVEN AND NON-LABORED ON ROOM AIR. NO IV ACCESS. DOES NOT DEMONSTRATE ANY UNTOWARD BEHAVIOR. SAFETY MEASURES IN PLACE, WITH BED IN LOWEST LOCKED POSITION. CALL LIGHT WITHIN REACH.
--- NOTE | 2022-03-29 15:10 | NUR ---
MS RN NOTE SPOKE WITH DR. STEPHEN TO VERIFY MEDICATION ADMINISTRATION. INVESTIGATIONAL DRUG TO BE GIVEN AT 2000 AND BLOOD DRAW SCHEDULED AT 1800 AND 2215. PATIENT REMAINS STABLE WITHOUT ANY UNTOWARD BEHAVIOR NOTED.
--- NOTE | 2022-03-29 19:00 | NUR ---
MS RN CLOSING NOTES PATIENT AWAKE ON BED, PATIENT IS A/O X4. NO C/O PAIN OR DISCOMFORT AT THIS TIME. ON ROOM AIR WITH EVEN AND NON-LABORED ON ROOM AIR. NO IV ACCESS. DOES NOT DEMONSTRATE ANY UNTOWARD BEHAVIOR. SAFETY MEASURES IN PLACE, WITH BED IN LOWEST LOCKED POSITION. CALL LIGHT WITHIN REACH. ENDORSED TO NEXT SHIFT FOR CONTINUITY OF CARE.
[2022-03-29 20:00] VITALS: BP 127/83
[2022-03-29] MEDS: INVEST MED MK-8189-008-02 MISC 1 DOSE PO SCH ×2 (20:00→20:18)
[2022-03-29] MEDS ORDERED: INVEST MED MK-8189-008-02 MISC 1 DOSE PO SCH (22:00)
--- NOTE | 2022-03-30 07:25 | NUR ---
RN OPENING NOTE- PATIENT AWAKE ON BED, PATIENT IS A/O X4. NO C/O PAIN OR DISCOMFORT AT THIS TIME. ON ROOM AIR . SATURATION 99% NO IV ACCESS. NO BEHAVIORAL. SAFETY MEASURES IN PLACE, WITH BED IN LOWEST LOCKED POSITION. CALL LIGHT WITHIN REACH. MONITOR / ASSIST.
[2022-03-30] MEDS ORDERED: ZOLPIDEM TARTRATE 10 MG TABLET PO PRN (12:00)
[2022-03-30] MEDS ORDERED: LORAZEPAM 1 MG TABLET FOR AGITATION/ANXIETY PO PRN (12:00)
[2022-03-30 16:00] VITALS: BP 124/85
--- NOTE | 2022-03-30 18:46 | NUR ---
RN CLOSING NOTE- PATIENT AWAKE ON BED, PATIENT IS A/O X4. NO C/O PAIN OR DISCOMFORT AT THIS TIME. ON ROOM AIR . SATURATION 100% NO IV ACCESS. NO BEHAVIORAL. SAFETY MEASURES IN PLACE, WITH BED IN LOWEST LOCKED POSITION. CALL LIGHT WITHIN REACH. MONITOR / ASSIST.
--- NOTE | 2022-03-30 19:30 | NUR ---
MS RN OPENING RECEIVED PATIENT IN BED, A/OX4. NO S/S OF APPARENT DISTRESS IN ROOM AIR. NO C/O PAIN. NOT EXHIBITING ANY PSYCH INSTABILITY. WILL MONITOR AND CONTINUE WITH CARE PLAN.
[2022-03-30 20:00] VITALS: BP 131/81
[2022-03-30] MEDS: INVEST MED MK-8189-008-02 MISC 1 DOSE PO SCH (20:00)
--- NOTE | 2022-03-30 21:20 | NUR ---
MS RN NOTE ATIVAN GIVEN PER PATIENT REQUEST.
--- NOTE | 2022-03-31 07:30 | NUR ---
MS RN OPENING NOTES RECEIVED PATIENT IN BED, A/OX4. NO S/S OF PAIN AND DISCOMFORT AT THIS TIME. PATIENT IS IN ROOM AIR AND NO S/S OF SOB AND DISTRESS. NOT EXHIBITING ANY PSYCH INSTABILITY. SAFETY MEASURES INITIATED. WILL CONTINUE TO MONITOR FOR ERIK.
--- NOTE | 2022-03-31 18:30 | NUR ---
MS RN CLOSING NOTES PATIENT IN BED, A/OX4. NO S/S OF PAIN AND DISCOMFORT AT THIS TIME. PATIENT IS IN ROOM AIR AND NO S/S OF SOB AND DISTRESS. NOT EXHIBITING ANY PSYCH INSTABILITY. SAFETY MEASURES INITIATED. WILL ENDORSE TO INCOMING SHIFT FOR ERIK.
--- NOTE | 2022-03-31 19:37 | NUR ---
MS RN OPENING PATIENT NOT IN ROOM DURING ERIK REPORT.
[2022-03-31 20:00] VITALS: BP 133/87
[2022-03-31] MEDS: INVEST MED MK-8189-008-02 MISC 1 DOSE PO SCH (20:00)
--- NOTE | 2022-04-01 06:30 | NUR ---
MS RN CLOSING PATIENT WENT DOWN AT THIS TIME. NO S/S OF APPARENT DISTRESS. NO C/O PAIN. DID NOT EXHIBIT ANY BEHAVIORAL CHANGES THROUGHOUT SHIFT. WILL ENDORSE TO MORNING SHIFT RN FOR CONTINUITY OF CARE.
--- NOTE | 2022-04-01 07:59 | NUR ---
RN OPENING NOTE PATIENT RECEIVED IN BED, AO X 4. ABLE TO RESPONDS ALL STIMULI. IN NO ACUTE DISTRESS NOTED. RESPIRATORY EVEN AND UNLABORED ON ROOM AIR. SKIN IS WARM TO TOUCH, KEEP CLEAN/DRY. ALL SAFETY PRECAUTION APPLIED. CALL LIGHT WITHIN REACH, WILL CONTINUE TO MONITOR.
[2022-04-01 08:00] VITALS: BP 133/84
[2022-04-01 15:49] VITALS: BP 123/86
--- NOTE | 2022-04-01 19:30 | NUR ---
RN OPENING NOTES RECEIVED PT IN BED, AWAKE, WATCHING TV. AOx4, CLINICAL TRIAL PATIENT. ON RA AND TOLERATING WELL. NO SOB NOTED. NO S/SX OF RESPIRATORY DISTRESS NOTED. IV ACCESS NOT PRESENT. SAFETY PRECAUTIONS IN PLACE: BED IN LOWEST, LOCKED POSITION, SIDERAILS UPx2, AND BRAKES ON. TABLE AND CALL LIGHT WITHIN REACH. WILL CONTINUE TO MONITOR.
[2022-04-01 20:00] VITALS: BP 146/88
[2022-04-01] MEDS: INVEST MED MK-8189-008-02 MISC 1 DOSE PO SCH (20:00)
--- NOTE | 2022-04-02 06:45 | NUR ---
RN CLOSING NOTES PT IN BED, ASLEEP, AWAKENS TO VERBAL STIMULI. AOx4, CLINICAL TRIAL PATIENT. ON RA AND TOLERATING WELL. NO SOB NOTED. NO S/SX OF RESPIRATORY DISTRESS NOTED. IV ACCESS NOT PRESENT. ALL ORDERS CARRIED OUT. ALL NEEDS MET. ADMINISTERED INVESTIGATIONAL MED PER MD ORDER. PT KEPT CLEAN AND DRY. SAFETY PRECAUTIONS IN PLACE: BED IN LOWEST, LOCKED POSITION, SIDERAILS UPx2, AND BRAKES ON. TABLE AND CALL LIGHT WITHIN REACH. WILL ENDORSE TO ONCOMING SHIFT FOR ERIK.
--- NOTE | 2022-04-02 07:42 | NUR ---
RN OPENING NOTE PATIENT RECEIVED IN THE ROOM, AO X 4. ABLE TO RESPONDS ALL STIMULI. IN NO ACUTE DISTRESS NOTED. RESPIRATORY EVEN AND UNLABORED ON ROOM AIR. SKIN IS WARM TO TOUCH, KEEP CLEAN/DRY. CALL LIGHT WITHIN REACH, WILL CONTINUE TO MONITOR.
[2022-04-02 08:00] VITALS: BP 139/84
[2022-04-02 16:00] VITALS: BP 133/105
[2022-04-02 20:00] VITALS: BP 125/72
--- NOTE | 2022-04-02 20:00 | NUR ---
RN NOTES RECEIVED PATIENT AWAKE ON BED, CALM AND COOPERATIVE, DENIES PAIN, CALL LIGHT WITHIN REACH,NO SOB SIDERAILSUPX2, WILL CONTINUE TO MONITOR
[2022-04-02] MEDS: INVEST MED MK-8189-008-02 MISC 1 DOSE PO SCH (20:16)
--- NOTE | 2022-04-03 07:00 | NUR ---
MS RN OPENING NOTES PATIENT IS AWAKE, A/OX4, RESTING IN BED; BREATHING EVEN AND UNLABORED; NO SOB NOTED; NO DISTRESS NOTED; TOLERATING ROOM AIR WELL; PATIENT DENIES PAIN AT THIS TIME; PATIENT ABLE TO MAKE NEEDS KNOWN; SAFETY PRECAUTIONS IMPLEMENTED; BED LOCKED IN LOW POSITION; SIDE RAILSX2; CALL LIGHT WITHIN REACH; WILL CONTINUE TO MONITOR.
--- NOTE | 2022-04-03 07:00 | NUR ---
RN NOTES AWAKE, DENIES PAIN, NO SOB, CALM AND COOPERATIVE, MORNING CARE RENDERED, PT. NEEDS ATTENDED
[2022-04-03 08:01] VITALS: BP 123/87
--- NOTE | 2022-04-03 19:00 | NUR ---
MS RN CLOSING NOTES PATIENT IS AWAKE, A/OX4, RESTING IN BED; BREATHING EVEN AND UNLABORED; NO SOB NOTED; NO DISTRESS NOTED; TOLERATING ROOM AIR WELL; PATIENT DENIES PAIN AT THIS TIME; PATIENT ABLE TO MAKE NEEDS KNOWN; SAFETY PRECAUTIONS IMPLEMENTED; BED LOCKED IN LOW POSITION; SIDE RAILSX2; CALL LIGHT WITHIN REACH. ALL NEEDS MET. WILL ENDORSE TO AIRPORT OPERATIONS COORDINATOR FOR ERIK.
--- NOTE | 2022-04-03 19:28 | NUR ---
MS RN OPENING NOTES RECEIVED REPORT FROM ROLAN LADD; PATIENT IS AWAKE, A/OX4, RESTING IN BED; BREATHING EVEN AND UNLABORED; NO SOB NOTED; NO DISTRESS NOTED; TOLERATING ROOM AIR WELL; PATIENT DENIES PAIN AT THIS TIME; PATIENT ABLE TO MAKE NEEDS KNOWN; SAFETY PRECAUTIONS IMPLEMENTED; BED LOCKED IN LOW POSITION; SIDE RAILSX2; CALL LIGHT WITHIN REACH; WILL CONT PLAN OF CARE AND CONT TO MONITOR
[2022-04-03 19:54] VITALS: BP 120/80
--- NOTE | 2022-04-03 20:10 | NUR ---
MS RN NOTE ENDORSED ERIK TO ROLAN HARDY
[2022-04-03] MEDS: INVEST MED MK-8189-008-02 MISC 1 DOSE PO SCH (20:18)
--- NOTE | 2022-04-04 07:04 | NUR ---
MS RN CLOSING NOTES PT LYING IN BED WITH EYES CLOSED. EASY TO AROUSE. A/OX4. NOT IN APPARENT DISTRESS. NO SOB OR NOTED, TOLERATING ROOM AIR WELL. NO C/O PAIN OR DISCOMFORT. NO IV ACCESS. ALL NEEDS ATTENDED. KEPT DRY AND COMFORTABLE. SAFETY PRECAUTIONS IN PLACE: BED LOW AND LOCKED, SIDE RAILS UP X2, CALL LIGHT WITHIN REACH.
[2022-04-04 08:00] VITALS: BP 136/86
[2022-04-04 16:00] VITALS: BP 121/80
--- NOTE | 2022-04-04 18:34 | NUR ---
uneventful day,pt. down to smoke several times.
--- NOTE | 2022-04-04 19:30 | NUR ---
MS RN OPENING PATIENT IN [place] DURING ERIK REPORT. WILL CONTINUE WITH PLAN OF CARE.
[2022-04-04 20:00] VITALS: BP 129/81
[2022-04-04] MEDS: INVEST MED MK-8189-008-02 MISC 1 DOSE PO SCH (20:20)
--- NOTE | 2022-04-05 07:02 | NUR ---
MS RN NOTE PATIENT NOTED TO BE ON THE PHONE WITH SOMEONE. DID NOT EXHIBIT ANY PSYCH INSTABILITY THROUGHOUT SHIFT. ENDORSED TO ANI FOR ERIK REPORT.
--- NOTE | 2022-04-05 07:27 | NUR ---
MS RN OPENING NOTES RECEIVED PATIENT AWAKE IN BED. A/OX4 .BREATHING EVEN AND UNLABORED; NO SOB NOTED; NO DISTRESS NOTED; BREATHING ON ROOM AIR , TOLERATING WELL. PATIENT DENIES PAIN AT THIS TIME; PATIENT ABLE TO MAKE NEEDS KNOWN; SAFETY PRECAUTIONS IMPLEMENTED; BED LOCKED IN LOW POSITION; SIDE RAILSX2; CALL LIGHT AND TABLE IN REACH; NO BEHAVIORAL ISSUES NOTED AT THIS TIME. WILL CONTINUE TO MONITOR THE PATIENT.
[2022-04-05 08:00] VITALS: BP 121/88
--- NOTE | 2022-04-05 18:36 | NUR ---
MS RN CLOSING NOTES PATIENT AWAKE IN BED. A/OX4 .BREATHING EVEN AND UNLABORED; NO SOB NOTED; NO DISTRESS NOTED; BREATHING ON ROOM AIR , TOLERATING WELL. PATIENT DENIES PAIN AT THIS TIME; PATIENT ABLE TO MAKE NEEDS KNOWN; SAFETY PRECAUTIONS IMPLEMENTED; BED LOCKED IN LOW POSITION; SIDE RAILSX2; CALL LIGHT AND TABLE IN REACH; NO BEHAVIORAL ISSUES NOTED DURING SHIFT. WILL ENDORSE FOR ERIK..
--- NOTE | 2022-04-05 19:45 | NUR ---
MS RN OPENING PATIENT WENT DOWN DURING ERIK REPORT.
[2022-04-05 20:00] VITALS: BP 114/69
[2022-04-05] MEDS: INVEST MED MK-8189-008-02 MISC 1 DOSE PO SCH (20:00)
[2022-04-06 08:00] VITALS: BP_SYST 11; BP_SYST 111; BP_DIAS 65
[2022-04-06] MEDS ORDERED: LORAZEPAM 1 MG TABLET FOR AGITATION/ANXIETY PO PRN (12:00)
[2022-04-06] MEDS ORDERED: ZOLPIDEM TARTRATE 10 MG TABLET PO PRN (12:00)
[2022-04-06 16:00] VITALS: BP 134/75
--- NOTE | 2022-04-06 18:42 | NUR ---
MS RN CLOSING NOTES PATIENT AWAKE IN BED. A/OX4 .BREATHING EVEN AND UNLABORED; NO SOB NOTED; NO DISTRESS NOTED; BREATHING ON ROOM AIR , TOLERATING WELL. PATIENT DENIES PAIN AT THIS TIME; PATIENT ABLE TO MAKE NEEDS KNOWN; SAFETY PRECAUTIONS IMPLEMENTED; BED LOCKED IN LOW POSITION; SIDE RAILSX2; CALL LIGHT AND TABLE IN REACH; NO BEHAVIORAL ISSUES NOTED AT THIS TIME. WILL ENDORSE FOR ERIK.
--- NOTE | 2022-04-06 19:32 | NUR ---
RN NOTES PATIENT CURRENTLY IS NOT IN THE UNIT. ENDORSED TO INCOMING SHIFT THAT THE PATIENT IS ABSENT FROM UNIT AND HIS ROOM.
--- NOTE | 2022-04-06 20:01 | NUR ---
RN NOTE PT STILL NOT BACK AT THIS TIME
--- NOTE | 2022-04-06 20:13 | NUR ---
RN NOTE PT BACK IN ROOM. INVEST MED GIVEN ORDERED. PT IN NO DISTRESS. INSTRUCTED TO CALL FOR ANY ASSISTANCE NEEDED. PT VERBALIZED UNDERSTANDING.
[2022-04-06] MEDS: INVEST MED MK-8189-008-02 MISC 1 DOSE PO SCH (20:14)
--- NOTE | 2022-04-07 06:45 | NUR ---
RN NOTE PT SIGNED AND WENT DOWNSTAIRS AT THIS TIME. PT IN NO ACUTE DISTRESS. NO BEHAVIORAL ISSUES DURING THE SHIFT. SAFETY INSTRUCTIONS PROVIDED AND PT VERBALIZED UNDERSTANDING.
[2022-04-07 16:17] VITALS: BP 135/91
--- NOTE | 2022-04-07 19:15 | NUR ---
RN NOTE PT IN ROOM, WATCHING TV. A/OX4. DENIES ANY PAIN/DISCOMFORT. NO BEHAVIORAL ISSUES NOTED. SAFETY INSTRUCTIONS PROVIDED AND VERBALIZED UNDERSTANDING. PT IN NO DISTRESS.
--- NOTE | 2022-04-07 19:26 | NUR ---
MS RN CLOSING NOTES PATIENT AWAKE ON BED, PATIENT IS A/O X4. NO C/O PAIN OR DISCOMFORT AT THIS TIME. ON ROOM AIR WITH EVEN AND NON-LABORED ON ROOM AIR. NO IV ACCESS. DOES NOT DEMONSTRATE ANY UNTOWARD BEHAVIOR. SAFETY MEASURES IN PLACE, WITH BED IN LOWEST LOCKED POSITION. CALL LIGHT WITHIN REACH. WILL ENDORSE PATIENT FOR CONTINUITY OF CARE.
[2022-04-07 20:00] VITALS: BP 139/81
[2022-04-07] MEDS: INVEST MED MK-8189-008-02 MISC 1 DOSE PO SCH (20:18)
--- NOTE | 2022-04-08 07:00 | NUR ---
RN NOTE PT RESTING IN BED, DENIES ANY PAIN/DISCOMFORT. SLEPT WELL DURING THE NIGHT. NO BEHAVIORAL ISSUES NOTED THIS SHIFT. ALL NEEDS ATTENDED TO. SAFETY MEASURES MAINTAINED.
--- NOTE | 2022-04-08 07:30 | NUR ---
MS RN OPENING NOTES: RECEIVED PATIENT IN BED AWAKE, A/O X4 AND ABLE TO VERBALIZED NEEDS. NO SOB/NO CARDIAC DISTRESS NOTED.NO IV ACCESS NOTED. NO COMPLAIN OF ANY PAIN AT THIS TIME. SAFETY PRECAUTION MEASURES: BED IN LOWEST AND LOCKED, CALL LIGHT IN EASY REACH FOR HELP.
[2022-04-08 09:00] VITALS: BP 141/98
[2022-04-08 18:09] VITALS: BP 132/78
--- NOTE | 2022-04-08 18:53 | NUR ---
MS RN CLOSING NOTES: PATIENT IN SITTING IN BED AWAKE, A/O X4 AND ABLE TO VERBALIZED NEEDS. NO SOB/NO CARDIAC DISTRESS NOTED.NO IV ACCESS NOTED. NO COMPLAIN OF ANY PAIN AT THIS TIME. SAFETY PRECAUTION MEASURES: BED IN LOWEST AND LOCKED, CALL LIGHT IN EASY REACH FOR HELP.
--- NOTE | 2022-04-08 19:44 | NUR ---
MS RN OPENING NOTES: RECEIVED PATIENT IN BED AWAKE, A/O X4 AND ABLE TO VERBALIZED NEEDS. NO SOB/DISTRESS NOTED.NO IV ACCESS NOTED. NO COMPLAIN OF ANY PAIN AT THIS TIME. SAFETY PRECAUTION IN PLACE. BED IN LOWEST AND LOCKED, CALL LIGHT WITHIN REACH.WILL CONTINUE TO MONITOR.
[2022-04-08] MEDS: INVEST MED MK-8189-008-02 MISC 1 DOSE PO SCH (19:50)
[2022-04-08 21:18] VITALS: BP 128/86
--- NOTE | 2022-04-09 06:45 | NUR ---
MS RN CLOSING NOTES PATIENT AWAKE IN BED. A/OX4 .BREATHING EVEN AND UNLABORED; NO SOB/DISTRESS NOTED. BREATHING ON ROOM AIR.PATIENT ABLE TO MAKE NEEDS KNOWN; SAFETY PRECAUTIONS IMPLEMENTED; BED LOCKED IN LOW POSITION; SIDE RAILSX2; CALL LIGHT WITHIN REACH.NO BEHAVIORAL ISSUES NOTED AT THIS TIME. WILL ENDORSE NEXT SHIFT.
[2022-04-09 08:00] VITALS: BP 112/78
--- NOTE | 2022-04-09 18:35 | NUR ---
MS RN CLOSING NOTES: PATIENT IN BED AWAKE, A/O X4 AND ABLE TO VERBALIZED NEEDS. NO SOB/NO CARDIAC DISTRESS NOTED.NO IV ACCESS NOTED. NO COMPLAIN OF ANY PAIN AT THIS TIME. NO EPISODES OF BEHAVIORAL AGGRESSION , NO DELUSION EXHIBITED ON MORNING SHIFT. SAFETY PRECAUTION MEASURES: BED IN LOWEST AND LOCKED, CALL LIGHT IN EASY REACH FOR HELP. ENDORSED TO PAPER FINISHER FOR CONTINUITY OF CARE.
--- NOTE | 2022-04-09 19:52 | NUR ---
RN OPENING NOTES RECEIVED PT IN BED, LAYING DOWN. AOx4. ON RA AND TOLERATING WELL. NO SOB NOTED. NO S/SX OF RESPIRATORY DISTRESS NOTED. NO IV ACCESS DUE TO PATIENT BEING CLINICAL TRIAL PATIENT. SAFETY PRECAUTIONS IN PLACE: BED IN LOWEST, LOCKED POSITION, SIDERAILS UPx2, AND BRAKES ON. TABLE AND CALL LIGHT WITHIN REACH. WILL CONTINUE TO MONITOR.
[2022-04-09] MEDS: INVEST MED MK-8189-008-02 MISC 1 DOSE PO SCH (19:58)
[2022-04-09 20:00] VITALS: BP 127/73
--- NOTE | 2022-04-10 06:46 | NUR ---
RN CLOSING NOTES PT IN ROOM, ASLEEP. AOx4. ON RA AND TOLERATING WELL. NO SOB NOTED. NO S/SX OF RESPIRATORY DISTRESS NOTED. NO IV ACCESS DUE TO PATIENT BEING CLINICAL TRIAL PATIENT. ALL ORDERS CARRIED OUT. ALL NEEDS MET. ADMINISTERED INVESTIGATIONAL MEDICATION PER MD ORDDER. SAFETY PRECAUTIONS IN PLACE: BED IN LOWEST, LOCKED POSITION, SIDERAILS UPx2, AND BRAKES ON. TABLE AND CALL LIGHT WITHIN REACH. WILL ENDORSE TO ONCOMING SHIFT FOR ERIK.
--- NOTE | 2022-04-10 07:50 | NUR ---
RN OPENING NOTE PATIENT AWAKE IN BED RESTING, A/O X4. NO S/S OF PAIN NOTED AT THIS TIME. ON ROOM AIR, NO DISTRESS OR SHORTNESS OF BREATH NOTED. NO IV ACCESS, PATIENT IS A CLINICAL TRIAL PATIENT. FALL AND SAFETY MEASURES IN PLACE, ON BED IN LOW AND LOCK POSITION, CALL LIGHT AND TABLE WITHIN EASY REACH, SIDE RAILS UP X2. WILL CONTINUE TO MONITOR.
[2022-04-10 08:00] VITALS: BP 136/98
[2022-04-10 16:00] VITALS: BP 136/98
[2022-04-10 16:01] VITALS: BP 135/93
--- NOTE | 2022-04-10 18:27 | NUR ---
RN CLOSING NOTE PATIENT AWAKE IN BED RESTING, A/O X4. NO S/S OF PAIN NOTED AT THIS TIME. ON ROOM AIR, NO DISTRESS OR SHORTNESS OF BREATH NOTED. NO IV ACCESS, PATIENT IS A CLINICAL TRIAL PATIENT. FALL AND SAFETY MEASURES IN PLACE, ON BED IN LOW AND LOCK POSITION, CALL LIGHT AND TABLE WITHIN EASY REACH, SIDE RAILS UP X2. WILL ENDORSE TO ADMITTING COUNSELOR.
[2022-04-10] MEDS: INVEST MED MK-8189-008-02 MISC 1 DOSE PO SCH (20:08)
[2022-04-10 20:47] VITALS: BP 133/92
--- NOTE | 2022-04-11 06:24 | NUR ---
RN CLOSING NOTE PATIENT ASLEEP IN BED RESTING, A/O X4. NO S/S OF PAIN NOTED AT THIS TIME. ON ROOM AIR, NO DISTRESS OR SHORTNESS OF BREATH NOTED. NO IV ACCESS, PATIENT IS A CLINICAL TRIAL PATIENT. FALL AND SAFETY MEASURES IN PLACE, ON BED IN LOW AND LOCK POSITION, CALL LIGHT AND TABLE WITHIN EASY REACH, SIDE RAILS UP X2. WILL ENDORSE CARE TO DAY SHIFT NURSE.
[2022-04-11 08:00] VITALS: BP 125/84
--- NOTE | 2022-04-11 16:38 | NUR ---
uneventful day so far.down to outside lobby often to smoke.
[2022-04-11 17:00] VITALS: BP 144/86
[2022-04-11 20:00] VITALS: BP 133/91
[2022-04-11] MEDS: INVEST MED MK-8189-008-02 MISC 1 DOSE PO SCH (20:33)
--- NOTE | 2022-04-12 05:52 | NUR ---
CLINICAL TRIAL, GIVEN INVESTIGATIONAL DRUG ON TIME, NO BEHAVIORAL DISTURBANCE, NO AKATHISIA, NO EPS. KEPT TO SELF, COOPERATIVE.
--- NOTE | 2022-04-12 07:28 | NUR ---
RN OPENING NOTES RECEIVED PATIENT IN BED, AWAKE, A/O X4, VERBALLY RESPONSIVE. NO SIGNS OF ACUTE DISTRESS NOTED. REMAINS ON CLINICAL TRIAL. NO IV ACCESS. NO C/O PAIN OR DISCOMFORT AT THIS TIME. SAFETY MEASURE MAINTAINED. WILL CONTINUE TO MONITOR PATIENT.
[2022-04-12 08:15] VITALS: BP 123/89
--- NOTE | 2022-04-12 18:47 | NUR ---
RN CLOSING NOTES PATIENT OUT TO SMOKE. REMAINS ON CLINICAL TRIAL. NO UNTOWARD BEHAVIOR NOTED THROUGHOUT THE SHIFT. PATIENT CALM AND COOPERATIVE. UP AND ABOUT. WILL ENDORSE TO NEXT SHIFT FOR CONTINUITY OF CARE.
--- NOTE | 2022-04-12 19:40 | NUR ---
RN OPENING NOTE PATIENT IN BED, A/O X 4 ABLE TO MAKE NEEDS KNOWN. PATIENT IS A CLINICAL TRIAL PATIENT OF DR. COBURN. PATIENT WILL BE NPO AFTER 2200. PATIENT IS CALM AND COOPERATIVE AT THIS TIME. PATIENT INDEPENDENT WITH ACTIVITIES. SAFETY MEASURES IN PLACE: BED LOCKED AND IN LOWEST POSITION, CALL LIGHT WITHIN REACH, SIDE RAILS UP. WILL MONITOR PATIENT CLOSELY.
[2022-04-12 20:01] VITALS: BP 123/87
[2022-04-12] MEDS: INVEST MED MK-8189-008-02 MISC 1 DOSE PO SCH (20:09)
--- NOTE | 2022-04-13 06:44 | NUR ---
RN CLOSING NOTE PATIENT IN BED, PATENT SLEEPING. A/O X 4 ABLE TO MAKE NEEDS KNOWN. PATIENT SUCCESSFULLY GIVEN STUDY MEDICATIONS AT 1999. PATIENT IS CALM AND COOPERATIVE AT THIS TIME. PATIENT'S NPO STATUS MAINTAINED PENDING BLOOD DRAW. PATIENT TO RESUME DIET WHEN BLOOD DRAW IS DONE. PATIENT INDEPENDENT WITH ACTIVITIES. SAFETY MEASURES IN PLACE: BED LOCKED AND IN LOWEST POSITION, CALL LIGHT WITHIN REACH, SIDE RAILS UP. ALL NEEDS MET AND ATTENDED. ALL ORDERS CARRIED OUT. WILL ENDORSE TO DAY SHIFT NURSE FOR ERIK.
--- NOTE | 2022-04-13 07:58 | NUR ---
RN OPENING NOTES PATIENT IN BED, PATENT SLEEPING. A/O X 4 ABLE TO MAKE NEEDS KNOWN. PATIENT IS NPO STATUS MAINTAINED PENDING BLOOD DRAW. PATIENT TO RESUME DIET WHEN BLOOD DRAW IS DONE. SAFETY MEASURES IN PLACE: BED LOCKED AND IN LOWEST POSITION, CALL LIGHT WITHIN REACH, SIDE RAILS UP. WILL CONTINUE TO MONITOR PATIENT.
[2022-04-13 08:00] VITALS: BP 105/58
[2022-04-13] MEDS ORDERED: ZOLPIDEM TARTRATE 10 MG TABLET PO PRN (12:00)
[2022-04-13] MEDS ORDERED: LORAZEPAM 1 MG TABLET FOR AGITATION/ANXIETY PO PRN (12:00)
--- NOTE | 2022-04-13 18:43 | NUR ---
FACE CLEANER CLOSING NOTES PATIENT IN THE ROOM WATCHING TV. A/O X 4 ABLE TO MAKE NEEDS KNOWN. NO PAIN. SAFETY MEASURES IN PLACE: BED LOCKED AND IN LOWEST POSITION, CALL LIGHT WITHIN REACH, SIDE RAILS UP. WILL ENDORSE TO MECHANICAL FACILITIES TECHNICIAN NURSE FOR ERIK.
--- NOTE | 2022-04-13 19:56 | NUR ---
RN OPENING NOTE PATIENT SEEN WALKING IN THE HALLWAY, A/O X 4 ABLE TO MAKE NEEDS KNOWN. PATIENT IS A CLINICAL TRIAL PATIENT OF DR. COBURN. PATIENT IS CALM AND COOPERATIVE AT THIS TIME. PATIENT INDEPENDENT WITH ACTIVITIES. NO PAIN OR DISCOMFORT VERBALIZED. SAFETY MEASURES IN PLACE: BED LOCKED AND IN LOWEST POSITION, CALL LIGHT WITHIN REACH, SIDE RAILS UP. WILL MONITOR PATIENT CLOSELY.
[2022-04-13 20:00] VITALS: BP 121/92
--- NOTE | 2022-04-13 20:15 | NUR ---
RN NOTE PER DAY ROLAN MONTEJO, LAB DRAW WAS MOVED TO WEDNESDAY. PATIENT CONFIRMED ALSO THAT DR. STEPHEN TOLD HIM THAT IT WILL BE WEDNESDAY.
[2022-04-13] MEDS: INVEST MED MK-8189-008-02 MISC 1 DOSE PO SCH (20:19)
--- NOTE | 2022-04-14 06:51 | NUR ---
RN CLOSING NOTE PATIENT SEEN WALKING AROUND THE ROOM, ABOUT TO GO DOWN TO THE LOBBY. A/O X 4 ABLE TO MAKE NEEDS KNOWN. PATIENT SUCCESSFULLY GIVEN STUDY MEDICATIONS AT 1999. PATIENT IS CALM AND COOPERATIVE AT THIS TIME. SAFETY MEASURES IN PLACE: BED LOCKED AND IN LOWEST POSITION, CALL LIGHT WITHIN REACH, SIDE RAILS UP. ALL NEEDS MET AND ATTENDED. ALL ORDERS CARRIED OUT. WILL ENDORSE TO DAY SHIFT NURSE FOR ERIK.
[2022-04-14 08:26] VITALS: BP 126/78
[2022-04-14 16:00] VITALS: BP 120/71
--- NOTE | 2022-04-14 18:00 | NUR ---
UNEVENTFUL DAY,LEAVING FLOOR FREQ. FOR SMOKING.
[2022-04-14 20:00] VITALS: BP 107/61
[2022-04-14] MEDS: INVEST MED MK-8189-008-02 MISC 1 DOSE PO SCH (20:01)
--- NOTE | 2022-04-15 06:39 | NUR ---
MS RN CLOSING NOTE PATIENT AWAKE IN ROOM, ALERT/ORIENTED X 4, PATIENT ABLE TO MAKE NEEDS KNOWN. INVESTIGATION MEDS ADMINISTERED THIS SHIFT @ 1999, NO ADVERSE EFFECTS NOTED. NO SIGNIFICANT CHANGES THROUGHOUT SHIFT. PATIENT KEPT NPO FOR LAB DRAW TODAY, MAY RESUME ORAL INTAKE AFTER LAB DRAW. SAFETY MEASURES IN PLACEl CALL LIGHT WITHIN REACH, SIDE RAILS UP X 2, BED LOCKED IN LOWEST POSITION, WILL ENDORSE TO DAY SHIFT NURSE FOR CONTINUITY OF CARE
[2022-04-15 08:00] VITALS: BP 122/86
--- NOTE | 2022-04-15 08:50 | NUR ---
LEFT FOR DR. STEPHEN'S OFFICE TO HAVE LABWORK DONE.
--- NOTE | 2022-04-15 09:00 | NUR ---
received pt. in am alert and oriented x4.no complaints offered.
--- NOTE | 2022-04-15 13:39 | NUR ---
pt. got belongings together,signed all PAPERWORK AND LEFT FOR HOME WITH DR. STEPHEN'S THIRD MATE MAKING ARRANGEMENTS FOR UBER.
== END 2022-04-15 11:30 | disposition home or self-care (01) | DRG 951 ==
LOC: GPS 14:08 → MEDOV2 02-26 07:59 → MED 03-10 20:05
PROVIDERS: ADMIT Psychiatry & Neurology Psychiatry; ATTEND Psychiatry & Neurology Psychiatry
DX: Z00.6 Encounter for examination for normal comparison and control in clinical research program (principal); F20.0 Paranoid schizophrenia; F29 Unspecified psychosis not due to a substance or known physiological condition; F41.9 Anxiety disorder, unspecified; Z80.42 Family history of malignant neoplasm of prostate; Z79.899 Other long term (current) drug therapy; F10.11 Alcohol abuse, in remission; Y90.9 Presence of alcohol in blood, level not specified
CPT/HCPCS: G0378

== ENCOUNTER 2022-07-22 09:36 | Inpatient (IN) | payer OTHER ==
[~2022-07-22] VITALS: Ht 188 cm; Wt 86.6 kg
[2022-07-22] MEDS ORDERED: LORAZEPAM 1 MG TABLET FOR AGITATION PO PRN (14:00)
[2022-07-22] MEDS ORDERED: MAG HYDROX/AL HYDROX/SIMETH 30 ML UDC PO PRN (14:00)
[2022-07-22] MEDS ORDERED: MAGNESIUM HYDROXIDE 30 ML UDC PO PRN (14:00)
[2022-07-22] MEDS ORDERED: ACETAMINOPHEN ES 500 MG TABLET PO PRN (14:00)
[2022-07-22] MEDS ORDERED: ZOLPIDEM TARTRATE 10 MG TABLET PO PRN (14:00)
[2022-07-22] MEDS ORDERED: IBUPROFEN 200 MG TABLET PO PRN (14:00)
[2022-07-22 15:00] VITALS: BP 123/87
--- NOTE | 2022-07-22 15:54 | NUR ---
MS RN ADMITTING NOTES PT ADMITTED TO UNIT AT [address] STEPHEN STAFF. PT IS A/O X4. ABLE TO MAKE NEEDS KNOWN, DENIES PAIN OR ANY DISCOMFORTS. PT ORIENTED TO ROOM AND STAFF. ON ROOM AIR, TOLERATING WELL, BREATHOING EVEN AND UNLABORED. V/S TAKEN AND RECORDED. PT WITH INTACT SKIN, NO ISSUES NOTED. NO IV ACCESS PER CT PROTOCOL. ALL BELONGINGS CHECKED, COUNTED BY HIREN MATHEW AND PT SIGNED BELONGINGS LIST FORM. SAFETY MEASURES INITIATED: BED PLACED IN LOWEST LOCKED POSITION WITH SIDE-RAILS UP X2. CALL LIGHT AND TRAY TABLE WITHIN EASY REACH OF PT. WILL CONTINUE WO MONITOR PT.
--- NOTE | 2022-07-22 17:47 | NUR ---
RN NOTES COLLECTED MRSA SWAB SPECIMEN ON RIGHT NARE AND CALLED LAB TO P/U SPECIMEN.
--- NOTE | 2022-07-22 18:05 | NUR ---
RN NOTES PT VERBALIZED THAT HE GOT TESTED FOR COVID [address] STEPHEN'S OFFICE AND WAS NEGATIVE.
--- NOTE | 2022-07-22 18:37 | NUR ---
MS RN CLOSING NOTES PT IN BED WATCHING TV AT THIS TIME. IS A/O X4. ABLE TO MAKE NEEDS KNOWN. AMBULATORY WITH STEADY GAIT. ON ROOM AIR, TOLERATING WELL, BREATHING EVEN AND UNLABORED. NO IV ACCESS PER CT PROTOCOL. NO UN-USUAL BEHAVIOR EXHIBITED NOTED AT THIS TIME. SAFETY MEASURES MAINTAINED: BED IN LOWEST LOCKED POSITION, SIDE-RAILS UP APPROPRIATE AND CALL LIGHT WITHIN EASY REACH OF PT. WILL ENDORSE ERIK TO OPTICS MANUFACTURING TECHNICIAN NURSE.
[2022-07-22 20:00] VITALS: BP 113/68
--- NOTE | 2022-07-22 20:12 | NUR ---
received patient not in his room at this time
[2022-07-22] MEDS ORDERED: risperiDONE 1 MG TABLET PO SCH (22:00)
--- NOTE | 2022-07-23 07:25 | NUR ---
ms rn received on bed, awake,alert,oriented x4, clinical trial patient of dr. rey, will monitor patient.
--- NOTE | 2022-07-23 09:20 | NUR ---
ms rn breakfast served,no due meds at this time,all needs attended.
[2022-07-23 15:36] VITALS: BP 122/76
--- NOTE | 2022-07-23 17:00 | NUR ---
ms rn inside room,no needs at this time
--- NOTE | 2022-07-23 19:30 | NUR ---
RN OPENING NOTE PATIENT SEEN WALKING ALONG THE HALLWAY, NOT IN ANY APPARENT DISTRESS. PATIENT IS ON RA, TOLERATING WELL. NO SOB NOTED. PATIENT IS A CLINICAL TRIAL PATIENT OF DR. STEPHEN. NO IV ACCESS NOTED. PATIENT CALM AND COOPERATIVE AT THIS TIME. SAFETY MEASURES IMPLEMENTED. WILL MONITOR PATIENT CLOSELY.
[2022-07-23 20:23] VITALS: BP 132/79
[2022-07-23] MEDS ORDERED: risperiDONE 1 MG TABLET PO SCH (22:00)
--- NOTE | 2022-07-24 06:57 | NUR ---
RN CLOSING NOTE PATIENT IN BED, SLEEPING, NOT IN ANY APPARENT DISTRESS. PATIENT IS ON RA, TOLERATING WELL. NO SOB NOTED. PATIENT IS A CLINICAL TRIAL PATIENT OF DR. STEPHEN. NO IV ACCESS NOTED. PATIENT CALM AND COOPERATIVE AT DURING THE SHIFT. SAFETY MEASURES IMPLEMENTED. ALL NEEDS MET AND ATTENDED. ALL ORDERS CARRIED OUT. WILL ENDORSE TO DAY SHIFT NURSE FOR ERIK.
--- NOTE | 2022-07-24 07:20 | NUR ---
ms rn received on bed, awake,alert,oriented x4,not in any form of distress, respirations even and unlabored,no sob noted. will continue monitoring patient.
[2022-07-24 08:00] VITALS: BP 135/92
--- NOTE | 2022-07-24 09:00 | NUR ---
ms derrick breakfast served,no due meds at this time, went down at the lobby.
--- NOTE | 2022-07-24 17:03 | NUR ---
ms rn patient inside room ,nocomplain,no distress noted.
--- NOTE | 2022-07-24 19:27 | NUR ---
RN OPENING NOTE PATIENT AWAKE IN ROOM. A/OX4. NO S/S OF DISTRESS, BREATHING WITHOUT DIFFICULTY ON ROOM AIR. PATIENT PRESENTS CALM, RESPONDS TO QUESTIONS, BUT AVOIDS DIRECT EYE-CONTACT. SAFETY MEASURES IN PLACE: BED LOCKED AND AT LOWEST POSITION, RAILS UP X2, CALL CARTY WITHIN REACH. WILL CONTINUE TO MONITOR PATIENT.
[2022-07-24 22:00] VITALS: BP 118/86
--- NOTE | 2022-07-25 07:07 | NUR ---
RN CLOSING NOTE PATIENT AWAKE IN ROOM. A/OX4. NO S/S OF DISTRESS, BREATHING WITHOUT DIFFICULTY ON ROOM AIR. PATIENT SLEPT MOST OF THE SHIFT, BUT WAS UP FOR CIGARETTE BREAKS. MOOD STABLE. CONTINUES TO NOT MAKE DIRECT EYE-CONTACT. SAFETY MEASURES IN PLACE: BED LOCKED, IN LOWEST POSITION, RAILS UP X2, CALL CARTY WITHIN REACH. WILL ENDORSE TO NEXT SHIFT FOR ERIK.
--- NOTE | 2022-07-25 07:10 | NUR ---
ms rn received on bed, awake,alert,oriented x4,a clinical trial patient of dr. rey, no distress noted,all needs attended.
[2022-07-25 08:00] VITALS: BP 112/67
[2022-07-25 15:55] VITALS: BP 107/78
--- NOTE | 2022-07-25 19:47 | NUR ---
RN OPENING NOTE PATIENT AWAKE IN BED. A/OX4. NO S/S OF DISTRESS, BREATHING WITHOUT DIFFICULTY ROOM AIR. PATIENT IS CURRENTLY CALM WATCHING TV; MOOD STABLE; MADE MORE EYE CONTACT WHILE INTERACTING WITH THIS RN. SAFETY MEASURES IN PLACE: BED AT LOWEST POSITION & LOCKED, RAILS UP X2, CALL CARTY WITHIN REACH. WILL CONTINUE TO MONITOR PATIENT.
[2022-07-25 20:00] VITALS: BP 108/65
--- NOTE | 2022-07-26 06:34 | NUR ---
RN CLOSING NOTE PATIENT ASLEEP IN BED. A/OX4. NO S/S OF DISTRESS, BREATHING WITHOUT DIFFICULTY ON ROOM AIR. PATIENT HAS BEEN WITHOUT ISSUE, VERY PLEASANT W/ NO NOTED BEHAVIORAL CHANGES THROUGHOUT SHIFT. SAFETY MEASURES IN PLACE: BED LOCKED & AT LOWEST POSITION, RAILS UP X2, CALL CARTY WITHIN REACH. WILL ENDORSE TO NEXT SHIFT FOR ERIK.
--- NOTE | 2022-07-26 07:56 | NUR ---
RN OPENING NOTE PATIENT RECEIVED IN BED, AO X 4, ABLE TO RESPONDS ALL STIMULI. IN NO ACUTE DISTRESS NOTED. RESPIRATORY EVEN AND UNLABORED ON ROOM AIR. SKIN IS WARM TO TOUCH, KEEP CLEAN/DRY. KEPT ELEVATED HOB FOR ENSURE AIRWAY AND ASPIRATION PRECAUTION, ALSO LOWEST POSITION OF THE BED, S/R UP X 2, BED ALARM IS ON AT ALL THE TIMES. ALL SAFETY PRECAUTION APPLIED. CALL LIGHT WITHIN REACH, WILL CONTINUE TO MONITOR.
[2022-07-26 08:00] VITALS: BP 121/74
[2022-07-26 17:00] VITALS: BP 126/68
--- NOTE | 2022-07-26 18:47 | NUR ---
RN CLOSING NOTE PATIENT IN BED RESTING. IN NO ACUTE DISTRESS NOTED. RESPIRATORY EVEN AND UNLABORED ON ROOM AIR. SKIN IS WARM TO TOUCH, KEEP CLEAN/DRY, INTACT IV LINE. KEPT ELEVATED HOB FOR ENSURE AIRWAY AND ASPIRATION PRECAUTION. BED IN LOWEST POSITION AND LOCKED. BED ALARM IS ON AT ALL THE TIMES. ALL SAFETY MEASURED IN PLACED. CALL LIGHT WITHIN REACH, WILL ENDORSED TO NEXT SHIFT.
--- NOTE | 2022-07-26 19:50 | NUR ---
RN OPEN NOTE: PATIENT IS ASLEEP VERBALLY AROUSED. MOIST ORAL MUCOSA. HOB ELEVATED 30 DEGREE ANGLE. HALF BILATERAL SIDE RAILS UPX2. BED IS LOCKED, LOW POSITION, CALL LIGHT IN REACH. DECLINES PAIN OR DISCOMFORT.
[2022-07-26 20:00] VITALS: BP 130/79
--- NOTE | 2022-07-27 06:56 | NUR ---
RN CLOSING NOTE: PATIENT IS AWAKE ALERT AND RESPONSIVE X3. MOIST ORAL MUCOSA. HOB ELEVATED 30 DEGREE ANGLE. HALF BILATERAL SIDE RAILS UPX2. BED IS LOCKED, LOW POSITION, CALL LIGHT IN REACH. DECLINES PAIN OR DISCOMFORT. ABLE TO SLEEP WELL.
--- NOTE | 2022-07-27 07:30 | NUR ---
RN OPENING NOTE PATIENT RECEIVED IN BED, AO X 4, VERBALLY RESPONSIVE , NO SOB OR DISTRESS NOTED ON ROOM AIR. ALSO LOWEST POSITION OF THE BED, S/R UP X 2, BED ALARM IS ON AT ALL THE TIMES. ALL SAFETY PRECAUTION APPLIED. CALL LIGHT WITHIN REACH, WILL CONTINUE TO MONITOR.
[2022-07-27 08:00] VITALS: BP 147/72
--- NOTE | 2022-07-27 12:55 | NUR ---
RN NOTES PATIENT COMPLAINS OF BEING ANXIOUS AND ATIVAN GIVEN BY MOUTH ORDERED
[2022-07-27 16:00] VITALS: BP 113/75
--- NOTE | 2022-07-27 18:33 | NUR ---
RN CLOSING NOTES PATIENT A/OX 4 , VERBALLY RESPONSIVE , C/O OF ANXIETY AROUND 1250 AND ATIVAN GIVEN AND WITH HELP . NO C/O OF PAIN AND DISCOM FORT AND NO CHANGES NOTED , V/S WITHIN NORMAL LIMITS AND ENDORSED TO NEXT SHIFT
--- NOTE | 2022-07-27 19:38 | NUR ---
RN OPENING NOTE PATIENT RECEIVED IN BED, AO X 4, VERBALLY RESPONSIVE ,ON RM AIR KARINA WELL,NO SIGN SOB/DISTRESS NOTED. NO BEHAVIORAL CHANGES NOTED.ALL SAFETY PRECAUTION APPLIED. CALL LIGHT WITHIN REACH, WILL CONTINUE TO MONITOR.
[2022-07-27 20:00] VITALS: BP 115/77
--- NOTE | 2022-07-28 07:48 | NUR ---
RN OPENING NOTE PATIENT RECEIVED IN BED, AO X 4, VERBALLY RESPONSIVE , NO SOB OR DISTRESS NOTED ON ROOM AIR. NO BEHAVIOR NOTED , NO C/O OF PAIN AND DISCOMFORT , AMBUALTORY WITH BRP , S/R UP X 2, . ALL SAFETY PRECAUTIONS APPLIED. CALL LIGHT WITHIN REACH, WILL CONTINUE TO MONITOR.
[2022-07-28 08:00] VITALS: BP 117/80
[2022-07-28 15:59] VITALS: BP 117/73
[2022-07-28 20:25] VITALS: BP 113/73
--- NOTE | 2022-07-29 06:12 | NUR ---
RN CLOSING NOTE; PATIENT IN BED,AAO X 4, VERBALLY RESPONSIVE ,ON RM AIR KARINA WELL,NO SIGN SOB/DISTRESS NOTED. NO BEHAVIORAL CHANGES DURING SHIFT,ALL SAFETY PRECAUTION APPLIED. CALL LIGHT WITHIN REACH, WILL ENDORSED TO NEXT SHIFT.
--- NOTE | 2022-07-29 07:20 | NUR ---
rn opening note patient in bed.patient is awake,alert and oriented x4. patient is verbally responsive and able to make needs known. patient is on room air tolerating well. no signs of pain or discomfort.all safety precautions in place. call light within reach.
[2022-07-29 16:00] VITALS: BP 137/81
--- NOTE | 2022-07-29 19:16 | NUR ---
rn closing note patient in alert and oriented x4. patient is verbally responsive and able to make needs known. patient is on room air tolerating well. no signs of pain or discomfort.all safety precautions in place. call light within reach.
[2022-07-29 20:00] VITALS: BP 140/85
--- NOTE | 2022-07-30 07:20 | NUR ---
MS RN OPENING NOTES: RECEIVED PATIENT IN BED AWAKE, ALERT AND ORIENTED X 4AND ABLE TO VERBALIZED NEEDS. NO SOB OR CARDIAC DISTRESS. AMBULATORY- STABLE. NO BEHAVIORAL CHANGES ENDORSED FROM FUR BLOWING MACHINE ATTENDANT, WILL MONITOR FOR ANY SIGNIFICANT CHANGES. NO IV ACCESS. CLINICAL TRIAL. SAFETY PRECAUTIONS MAINTAINED: BED LOCKED AND AND IN LOWEST POSITION. SIDE RAILS UP X2. CALL LIGHT IN EASY REACH. WILL MONITOR AND REPORT FOR ANY SIGNIFICANT CHANGES.
[2022-07-30 08:00] VITALS: BP 128/65
[2022-07-30 16:00] VITALS: BP 127/77
--- NOTE | 2022-07-30 18:45 | NUR ---
MS RN CLOSING NOTES: PATIENT IN BED AWAKE. ALERT AND ORIENTED X 4 AND ABLE TO VERBALIZED NEEDS. NO SOB OR CARDIAC DISTRESS NOTED. NO IV ACCESS NOTED, CLINICAL TRIAL. PATIENT HAD NO BEHAVIOR CHANGES. WILL MONITOR ACCORDINGLY. SAFETY PRECAUTIONS MAINTAINED: BED LOCKED AND IN LOWEST POSITION, SIDERAILS UP X 2. CALL LIGHT IN EASY REACH FOR HELP. WILL MONITOR PT ACCORDINGLY. ENDORSED TO CONTENT WRITER NURSE FOR CONTINUITY OF CARE.
[2022-07-30 20:00] VITALS: BP 126/82
--- NOTE | 2022-07-31 06:13 | NUR ---
RN CLOSING NOTE;316 PATIENT IN BED,AAO X 4, VERBALLY RESPONSIVE ,ON RM AIR KARINA WELL,NO SIGN SOB/DISTRESS NOTED. NO BEHAVIORAL CHANGES DURING SHIFT,NPO SINCE 2099,ALL SAFETY PRECAUTION APPLIED. CALL LIGHT WITHIN REACH, WILL ENDORSED TO NEXT SHIFT.
--- NOTE | 2022-07-31 07:00 | NUR ---
MS RN OPENING NOTES PATIENT LAYING IN BED, A/O X 4, ABLE TO MAKE NEEDS KNOWN, TOLERATING WELL ON ROOM AIR WITH NO S/S RESPIRATORY DISTRESS. NO C/C PAIN OR DISCOMFORT AT THIS TIME. CURRENTLY ON REGULAR DIET. SAFETY MEASURES IN PLACE: BED IN LOWEST LOCKED POSITION, SIDE RAILS UP X 2, CALL LIGHT WITHIN REACH. WILL CONTINUE TO MONITOR.
[2022-07-31] MEDS ORDERED: LORAZEPAM 1 MG TABLET FOR AGITATION PO PRN (13:00)
[2022-07-31] MEDS ORDERED: ZOLPIDEM TARTRATE 10 MG TABLET PO PRN (13:00)
[2022-07-31 20:00] VITALS: BP 131/76
--- NOTE | 2022-07-31 20:25 | NUR ---
PATIENT IN ROOM, ALERT AND ORIENTED X4, ROOM AIR, NO COMPLAIN OF PAIN, WITH A RADIO ON AND SINGING. REMINDED PATIENT ATIVAN IS ON HOLD FOR THE NIGHT 07/31/22. PATIENT VERBALIZED UNDERSTANDING.
--- NOTE | 2022-08-01 05:56 | NUR ---
KEPT TO SELF, GOING OUT TO SMOKE AND COMES BACK TO ROOM, NO BEHAVIOR DISTURBANCE, NO ATIVAN GIVEN DURING SHIFT.
--- NOTE | 2022-08-01 07:00 | NUR ---
MS RN OPENING NOTES PATIENT LAYING IN BED, A/O X 4, ABLE TO MAKE NEEDS KNOWN, TOLERATING WELL ON ROOM AIR WITH NO S/S RESPIRATORY DISTRESS. NO C/C PAIN OR DISCOMFORT AT THIS TIME. SAFETY MEASURES IN PLACE: BED IN LOWEST LOCKED POSITION, SIDE RAILS UP X 2, CALL LIGHT WITHIN REACH. WILL CONTINUE TO MONITOR.
[2022-08-01 08:00] VITALS: BP 127/94
[2022-08-01 16:00] VITALS: BP 132/79
--- NOTE | 2022-08-01 18:55 | NUR ---
MS RN CLOSING NOTES PATIENT LAYING IN BED, A/O X 4, ABLE TO MAKE NEEDS KNOWN, TOLERATING WELL ON ROOM AIR WITH NO S/S RESPIRATORY DISTRESS. NO C/C PAIN OR DISCOMFORT AT THIS TIME. SAFETY MEASURES IN PLACE: BED IN LOWEST LOCKED POSITION, SIDE RAILS UP X 2, CALL LIGHT WITHIN REACH. ALL NEEDS MET. WILL ENDORSE TO PROCEDURES RN FOR ERIK.
[2022-08-01 20:00] VITALS: BP 128/77
--- NOTE | 2022-08-01 20:12 | NUR ---
RN NOTE PATIENT AWAKE IN BED. A/OX4. NO S/S OF DISTRESS, BREATHING WITHOUT DIFFICULT ON ROOM AIR. PATIENT CONTENT, ALL NEEDS MET. SAFETY MEASURES IN PLACE: BED LOCKED AT LOWEST LEVEL, RAILS UP X2, CALL CARTY WITHIN REACH. WILL CONTINUE TO MONITOR PATIENT.
--- NOTE | 2022-08-02 06:36 | NUR ---
RN CLOSING NOTE PATIENT ASLEEP IN BED. A/OX4. NO S/S OF DISTRESS, BREATHING WITHOUT DIFFICULTY ON ROOM AIR. NO BEHAVIORAL ISSUES OCCURRED DURING THE SHIFT. BED LOCKED AT LOWEST POSITION, RAILS UP X2, CALL CARTY WITHIN REACH. WILL ENDORSE TO NEXT SHIFT FOR ERIK.
--- NOTE | 2022-08-02 07:28 | NUR ---
MS RN OPENING NOTE PATIENT LAYING IN BED, A/OX4, TOLERATING WELL ON ROOM AIR WITH NO S/S RESPIRATORY DISTRESS. NO COMPLAINTS OF PAIN OR DISCOMFORT AT THIS TIME. SAFETY MEASURES IN PLACE: BED IN LOWEST LOCKED POSITION, SIDE RAILS UP X 2, CALL LIGHT WITHIN REACH. WILL CONTINUE TO MONITOR.
[2022-08-02 16:42] VITALS: BP 129/82
[2022-08-02 20:00] VITALS: BP 127/82
[2022-08-03 04:00] VITALS: BP 129/54
--- NOTE | 2022-08-03 06:21 | NUR ---
RN CLOSING NOTE; PATIENT IN BED,AAO X 4, VERBALLY RESPONSIVE ,ON RM AIR KARINA WELL,NO SIGN SOB/DISTRESS NOTED. NO BEHAVIORAL CHANGES DURING SHIFT,NPO SINCE 2099,ALL SAFETY PRECAUTION APPLIED. CALL LIGHT WITHIN REACH, WILL ENDORSED TO NEXT SHIFT.
[2022-08-03 08:00] VITALS: BP 124/81
--- NOTE | 2022-08-03 09:44 | NUR ---
RN OPENING NOTES PATIENT IN BED, A/OX4, TOLERATING WELL ON ROOM AIR WITH NO SIGNS OF RESPIRATORY DISTRESS. NO COMPLAINTS OF PAIN OR DISCOMFORT. SAFETY MEASURES IN PLACE, BED IN LOWEST LOCKED POSITION, SIDE RAILS UP X 2, CALL LIGHT WITHIN REACH. WILL CONTINUE TO MONITOR.
[2022-08-03] MEDS ORDERED: LORAZEPAM 1 MG TABLET FOR AGITATION PO PRN (13:00)
--- NOTE | 2022-08-03 18:33 | NUR ---
RN CLOSING NOTES PATIENT IN BED, ALERT/ORIENTED X 4, VERBALLY RESPONSIVE, ON ROOM AIR TOLERATING WELL, NO SIGN SOB/DISTRESS NOTED. NO BEHAVIORAL CHANGES DURING SHIFT, NPO, ALL SAFETY PRECAUTION APPLIED. CALL LIGHT WITHIN REACH, WILL ENDORSED TO NEXT SHIFT.
--- NOTE | 2022-08-03 20:00 | NUR ---
MSRN SEEN AMBULATING AROUND HALLWAYS, GOES DOWN FOR FEW MINUTES. BEHAVIOR ACCEPTABLE, REMAINS COOPERATIVE.
[2022-08-03 20:40] VITALS: BP 130/77
--- NOTE | 2022-08-04 07:00 | NUR ---
MSRN SEEN GOING OUT , NO NEEDS MADE. STABLE.
--- NOTE | 2022-08-04 07:30 | NUR ---
RN MS NOTES PT AWAKE, ALERT AND ORIENTED, WALKING INSIDE HIS ROM WITH STEADY GAIT, NO COMPLAINT AT THIS TIME, PT INFORMED THAT HE WILL START HIS STUDY MED AT 1000, VERBALIZED UNDERSTANDING.
[2022-08-04 08:00] VITALS: BP 128/82
[2022-08-04] MEDS: INVEST MED CVL-231-2002 PO SCH (10:01)
[2022-08-04 16:00] VITALS: BP 116/71
--- NOTE | 2022-08-04 19:00 | NUR ---
RN MS NOTES NO BEHAVIOR NOTED, COMPLIANT AND COOPERATIVE WITH MEDS, NEEDS ATTENDED.
[2022-08-04 20:00] VITALS: BP 131/85
--- NOTE | 2022-08-04 20:14 | NUR ---
MS/TELE/RN RECEIVED PATIENT IN ROOM LYING IN BED AWAKE, ALERT, ORIENTED, TALKING ON THE CELLPHONE, NO SIGNS OF DISTRESS NOTED, CALL LIGHT IN REACH, WILL MONITOR.
--- NOTE | 2022-08-05 06:13 | NUR ---
MS/TELE/RN PATIENT IS IN ROOM AWAKE, NO DISTRESS NOTED, CALL LIGHT IN REACH, ALL NEEDS ATTENDED AT THIS TIME, WILL CONTINUE TO MONITOR.
--- NOTE | 2022-08-05 07:30 | NUR ---
RN MS NOTES PT IN BED, AWAKE, ALERT AND ORIENTED, NO BEHAVIOR PROBLEM AT THIS TIME, CALM AND COOPERATIVE, NEEDS ATTENDED.
[2022-08-05 08:00] VITALS: BP 128/69
[2022-08-05] MEDS: INVEST MED CVL-231-2002 PO SCH (09:58)
[2022-08-05 15:30] VITALS: BP 119/62
--- NOTE | 2022-08-05 18:22 | NUR ---
RN MS NOTES PT AWAKE, ALERT AND ORIENTED, WALKING ALONG THE HALLWAY WITH STEADY GAIT, NO BEHAVIOR PROBLEM NOTED, TOOK HIS INVESTIGATIONAL MED AT 1000, CALM AND COOPERATIVE.
--- NOTE | 2022-08-05 19:30 | NUR ---
MS RN OPENING NOTES PATIENT IS CURRENTLY NOT IN HIS ROOM. SIGNED OUT TO SMOKE. WILL MONITOR FOR PATIENT COMING BACK.
[2022-08-05 20:00] VITALS: BP 118/83
--- NOTE | 2022-08-05 20:23 | NUR ---
MS RN NOTES PATIENT BACK TO HIS ROOM. A/O X4. BREATHING EVEN AND NON-LABORED ON ROOM AIR. DENIES PAIN AT THIS TIME. NOT IN APPARENT DISTRESS. NO IV ACCESS, ON CLINICAL TRIAL. SAFETY MEASURES IN PLACE. WILL CONTINUE TO MONITOR.
--- NOTE | 2022-08-06 06:36 | NUR ---
MS RN CLOSING NOTES PATIENT LYING IN BED ASLEEP, EASY TO AROUSE. A/O X4. NO SOB OR NOTED, TOLERATING ROOM AIR WELL. NO ACUTE DISTRESS NOTED. AFEBRILE. NO PAIN OR DISCOMFORT NOTED. NO INAPPROPRIATE BEHAVIOR DURING SHIFT. NO IV ACCESS, ON CLINICAL TRIAL. ALL NEEDS ATTENDED AND ANTICIPATED. SAFETY MEASURES MAINTAINED. WILL ENDORSE FOR ERIK.
--- NOTE | 2022-08-06 07:19 | NUR ---
MS RN OPENING NOTES PATIENT IS CURRENTLY NOT IN HIS ROOM. REPORTED BY NIGHT NURSE APRIL THAT PT SIGNED OUT TO SMOKE.
--- NOTE | 2022-08-06 07:37 | NUR ---
RN NOTES PT RETURNED JUST NOW FROM SMOKING OUTSIDE. A/O X4. ABLE TO MAKE NEEDS KNOWN, DENIES PAIN OR ANY DISCOMFORTS AT THIS TIME. WILL CONTINUE TO MONITOR PT'S BEHAVIOR THROUGHOUT SHIFT.
[2022-08-06] MEDS: INVEST MED CVL-231-2002 PO SCH (10:23)
[2022-08-06 16:10] VITALS: BP 114/72
--- NOTE | 2022-08-06 18:44 | NUR ---
MS RN CLOSING NOTES PT RESTING IN BED AT THIS TIME. A/O X4. ABLE TO MAKE NEEDS KNOWN. AMBULATORY WITH STEADY GAIT. ON ROOM AIR, TOLERATING WELL, BREATHING EVEN AND UNLABORED. NO IV ACCESS PER CT PROTOCOL. NO UN-USUAL BEHAVIOR EXHIBITED NOTED DURING SHIFT. SAFETY MEASURES MAINTAINED: BED IN LOWEST LOCKED POSITION, SIDE-RAILS UP APPROPRIATE AND CALL LIGHT WITHIN EASY REACH OF PT. WILL ENDORSE ERIK TO AIRBRUSH PAINTER NURSE.
--- NOTE | 2022-08-06 19:59 | NUR ---
RN OPENING NOTE PATIENT IS NOT PRESENT IN ROOM; HAS GONE OUT FOR CIGARETTE. SAFETY MEASURES IN PLACE: BED LOCKED AND AT LOWEST POSITION, RAILS UP X2, CALL CARTY ACCESSIBLE TO BED. WILL CONTINUE TO MONITOR PATIENT ONCE HE RETURNS.
[2022-08-06 20:00] VITALS: BP 123/82
--- NOTE | 2022-08-07 06:56 | NUR ---
RN CLOSING NOTE PATIENT AWAKE IN BED. A/OX4. NO S/S OF DISTRESS, BREATHING WITHOUT DIFFICULTY ON ROOM AIR. NO BEHAVIORAL CHANGES NOTED. SAFETY MEASURES IN PLACE: BED LOCKED AND AT LOWEST POSITION, RAILS UP X2, CALL CARTY WITHIN REACH. WILL ENDORSE TO NEXT SHIFT FOR ERIK.
--- NOTE | 2022-08-07 07:15 | NUR ---
RN OPENING NOTE SAW THE PATIENT IN THE HALLWAY, HE SAID HE WAS JUST GOING TO HAVE A BREAK. A/OX4. NO S/S OF DISTRESS, BREATHING WITHOUT DIFFICULTY ON ROOM AIR. CHECKED CHART, LOGGED OUT AT 0708. SAFETY MEASURES CHECKED IN HIS ROOM: BED LOCKED AND AT LOWEST POSITION, RAILS UP X2, CALL LIGHT AND TRAY TABLE WITHIN REACH. BOARD UPDATED FOR HIS REFERENCE. WILL MONITOR DURING MY SHIFT FOR ANY CHANGE OF BEHAVIOR PATTERNS AND SAFETY.
--- NOTE | 2022-08-07 09:25 | NUR ---
RN NOTES CHECKED ROOM, PATIENT IS STILL NOT BACK. WILL CHECK AT 1000 FOR 1000 MEDICATION.
[2022-08-07] MEDS: INVEST MED CVL-231-2002 PO SCH ×2 (09:59→10:06)
--- NOTE | 2022-08-07 10:03 | NUR ---
RN NOTES CHECK PATIENT IN ROOM, NOT BACK YET. WILL CONTINUE TO CHECK. WILL REPORT TO MD.
--- NOTE | 2022-08-07 10:10 | NUR ---
RN NOTES PATIENT GOT BACK AROUND 1008, DUE INVESTIGATIONAL MEDICATION GIVEN.
--- NOTE | 2022-08-07 11:56 | NUR ---
RN NOTES ROUTED PT WITH DIETARY FOR HIS FOOD PREFERENCE - SPEAKING TO NATHALIE AT THE MOMENT. PATIENT DOESNT WANT PORK.
[2022-08-07] MEDS ORDERED: ZOLPIDEM TARTRATE 10 MG TABLET PO PRN (13:00)
[2022-08-07 16:13] VITALS: BP 136/80
--- NOTE | 2022-08-07 18:35 | NUR ---
MS RN CLOSING NOTES PT IN HIS ROOM, TALKING WITH SOMEONE OVER THE PHONE, A/O X4. ABLE TO MAKE NEEDS KNOWN. AMBULATORY WITH STEADY GAIT. ON ROOM AIR, TOLERATING WELL, BREATHING EVEN AND UNLABORED. NO IV ACCESS PER CT PROTOCOL. NO UN-USUAL BEHAVIOR EXHIBITED NOTED DURING SHIFT. SAFETY MEASURES MAINTAINED: BED IN LOWEST LOCKED POSITION, SIDE-RAILS UP APPROPRIATE AND CALL LIGHT WITHIN EASY REACH OF PT. WILL ENDORSE ERIK TO INTEGRATIVE MEDICINE PHYSICIAN NURSE.
--- NOTE | 2022-08-07 19:35 | NUR ---
MS RN OPENING NOTE RECEIVED PATIENT IN BED; AWAKE, ALERT AND ORIENTED X4. BREATHING EVEN AND NONLABORED. ON ROOM AIR; TOLERATING WELL. NOT IN ANY FORM OF RESPIRATORY DISTRESS. DENIES ANY PAIN OR DISCOMFORT AT THIS TIME. ABLE TO MAKE NEEDS KNOWN. ON CLINICAL TRIAL. NO IV ACCESS. SAFETY MEASURES IMPLEMENTED: CALL LIGHT AND TABLE WITHIN REACH, SIDE RAILS UP X2, BED IN LOWEST LOCKED POSITION. WILL CONTINUE PLAN OF CARE.
[2022-08-07 20:00] VITALS: BP 120/81
--- NOTE | 2022-08-08 06:55 | NUR ---
MS RN CLOSING NOTE PATIENT IN BED; AWAKE, A/O X4. RESPIRATION EQUAL AND UNLABORED. IN NO ACUTE DISTRESS. DENIES ANY PAIN OR DISCOMFORT AT THIS TIME. ALL NEEDS MET. ON CLINICAL TRIAL. NO IV ACCESS. SAFETY MEASURES MAINTAINED: CALL LIGHT AND TABLE WITHIN REACH, SIDE RAILS UP X2, BED IN LOWEST LOCKED POSITION. ENDORSED TO KATIE GONGORA FOR ERIK.
--- NOTE | 2022-08-08 07:10 | NUR ---
MS RN CLOSING NOTE PATIENT IN BED; AWAKE, A/O X4. RESPIRATION EQUAL AND UNLABORED. IN NO ACUTE DISTRESS. DENIES ANY PAIN OR DISCOMFORT AT THIS TIME. SAFETY MEASURES MAINTAINED: CALL LIGHT AND TABLE WITHIN REACH, SIDE RAILS UP X2, BED IN LOWEST LOCKED POSITION. ENDORSED TO ANI RN FOR ERIK.
--- NOTE | 2022-08-08 07:35 | NUR ---
RN OPENING NOTE RECEIVED PATIENT IN HIS ROOM, WATCHING VIDEOS COMFORTABLY IN HIS BED. A/OX4. NO S/S OF DISTRESS, BREATHING WITHOUT DIFFICULTY ON ROOM AIR. AMBULATORY, ABLE TO MAKE NEEDS KNOWN. REMINDED PATIENT OF HIS 1000 AM MEDICATION AND TO CALL DIETARY FOR HIS MEAL PREFERENCE. SAFETY MEASURES CHECKED IN HIS ROOM: BED LOCKED AND AT LOWEST POSITION, RAILS UP X2, CALL LIGHT AND TRAY TABLE WITHIN REACH. BOARD UPDATED FOR HIS REFERENCE. WILL MONITOR DURING MY SHIFT FOR ANY CHANGE OF BEHAVIOR PATTERNS AND SAFETY.
[2022-08-08 08:00] VITALS: BP 137/85
[2022-08-08] MEDS: INVEST MED CVL-231-2002 PO SCH (10:21)
[2022-08-08 16:05] VITALS: BP 112/66
--- NOTE | 2022-08-08 18:52 | NUR ---
MS RN CLOSING NOTES PT IN HIS ROOM EATING DINNER, A/O X4. ABLE TO MAKE NEEDS KNOWN. AMBULATORY WITH STEADY GAIT. ON ROOM AIR, TOLERATING WELL, BREATHING EVEN AND UNLABORED. NO IV ACCESS PER CT PROTOCOL. NO UN-USUAL BEHAVIOR EXHIBITED NOTED DURING SHIFT. SAFETY MEASURES MAINTAINED: BED IN LOWEST LOCKED POSITION, SIDE-RAILS UP APPROPRIATE AND CALL LIGHT WITHIN EASY REACH OF PT. WILL ENDORSE TO THE SWIMMING POOL MAINTENANCE SUPERVISOR NURSE.
[2022-08-08 20:00] VITALS: BP 125/62
--- NOTE | 2022-08-09 07:30 | NUR ---
RN MS NOTES PT AWAKE, ALERT AND ORIENTED, IN BED, NO COMPLAINT OF PAIN OR ANY DISCOMFORT, NOT IN DISTRESS, COMPLIANT AND CALM AT THIS TIME.
[2022-08-09 08:00] VITALS: BP 120/65
[2022-08-09] MEDS: INVEST MED CVL-231-2002 PO SCH (09:59)
[2022-08-09 16:00] VITALS: BP 138/78
--- NOTE | 2022-08-09 18:42 | NUR ---
RN MS NOTES Patient is stable without sign and symptoms of distress. Medication was given as instructed. Patient's needs have been met. Vital signs are WNL.
--- NOTE | 2022-08-09 19:30 | NUR ---
RN OPENING NOTE RECEIVED REPORT FROM ROLAN GENAO FOR [facility]. PATIENT IN BED, WATCHING VIDEOS COMFORTABLY. A/OX4. NO S/S OF ACUTE DISTRESS, BREATHING WITHOUT DIFFICULTY ON ROOM AIR. AMBULATORY, ABLE TO MAKE NEEDS KNOWN. ALL SAFETY MEASURES IN PLACE: BED LOCKED IN LOWEST POSITION, SIDE RAILS UP X2, CALL LIGHT AND TRAY TABLE WITHIN REACH. WILL CONTINUE TO MONITOR.
[2022-08-09 20:54] VITALS: BP 101/68
--- NOTE | 2022-08-10 05:41 | NUR ---
RN CLOSING NOTE NO SIGNIFICANT CHANGE T/O THE NIGHT. WILL ENDORSE TO AM SHIFT NURSE FOR ERIK.
--- NOTE | 2022-08-10 07:25 | NUR ---
RN OPENING NOTE RECEIVED PATIENT AWAKE IN BED IN NO ACUTE SIGNS OF DISTRESS. A/O X4. BREATHING EVEN AND UNLABORED ON ROOM AIR, ABLE TO MAKE NEEDS KNOWN, DENIES ANY PAIN OR DISCOMFORT AT THIS TIME. ON CLINICAL TRIAL. NO IV ACCES PER CT PROTOCOLS. SAFETY MEASURES MAINTAINED: CALL LIGHT AND TRAY TABLE WITHIN REACH, SIDE RAILS UP X2, BED IN LOWEST LOCKED POSITION. WILL CONTINUE PLAN OF CARE.
[2022-08-10] MEDS: INVEST MED CVL-231-2002 PO SCH (10:01)
--- NOTE | 2022-08-10 18:59 | NUR ---
RN CLOSING NOTE PT IN HIS ROOM. A/O X4. ABLE TO MAKE NEEDS KNOWN. AMBULATORY WITH STEADY GAIT. ON ROOM AIR, BREATHING EVEN AND UNLABORED. NO IV ACCESS PER CT PROTOCOL. NO UNUSUAL BEHAVIOR NOTED DURING SHIFT. SAFETY MEASURES MAINTAINED: BED IN LOWEST LOCKED POSITION, SIDE-RAILS UP APPROPRIATE AND CALL LIGHT WITHIN EASY REACH. WILL ENDORSE TO THE RESTAURANT KITCHEN MANAGER NURSE.
--- NOTE | 2022-08-10 19:15 | NUR ---
RN OPENING NOTE PATIENT IN HIS ROOM. ALERT AND ORIENTED X4. ABLE TO MAKE NEEDS KNOWN. AMBULATORY WITH STEADY GAIT. ON ROOM AIR, BREATHING EVEN AND UNLABORED. NO IV ACCESS PER CT PROTOCOL. ON INVESTIGATIONAL DRUG WITH NO ADVERSE REACTIONS NOTED. NO EPS, NO TREMORS NOTED. DENIES SI/HI AT THIS TIME. SAFETY MEASURES MAINTAINED: BED IN LOWEST LOCKED POSITION, SIDE-RAILS UP APPROPRIATE AND CALL LIGHT WITHIN EASY REACH. WILL CONTINUE TO MONITOR PATIENT THROUGHOUT THE SHIFT.
[2022-08-10 20:00] VITALS: BP 126/81
--- NOTE | 2022-08-11 06:15 | NUR ---
MS RN CLOSING NOTE PATIENT SLEEPING IN BED, AROUSED EASILY. ABLE TO MAKE NEEDS KNOWN. AMBULATORY WITH STEADY GAIT. ON ROOM AIR, BREATHING EVEN AND UNLABORED. NO IV ACCESS PER CLINICAL TRIAL PROTOCOL. ON INVESTIGATIONAL MEDS WITH NO ADVERSE REACTIONS NOTED. NO EPS, NO TREMORS NOTED. DENIES SI/HI AT THIS TIME. SAFETY MEASURES MAINTAINED: BED IN LOWEST LOCKED POSITION, SIDE-RAILS UP APPROPRIATE AND CALL LIGHT WITHIN EASY REACH. NO BEHAVIORAL CHANGES NOTED. WILL ENDORSE TO DAY SHIFT NURSE FOR CONTINUITY OF CARE.
[2022-08-11] MEDS: INVEST MED CVL-231-2002 PO SCH ×2 (10:00→11:06)
--- NOTE | 2022-08-11 10:00 | NUR ---
RN NOTE PATIENT NOT IN HIS ROOM, SCHEDULED FOR INVESTIGATIONAL MED AT 1000. WILL RECHECK.
--- NOTE | 2022-08-11 10:30 | NUR ---
RN NOTES PATIENT STILL NOT IN HIS ROOM. INVESTIGATIONAL MEDICATION NOT GIVEN YET.
--- NOTE | 2022-08-11 14:17 | NUR ---
RN OPENING NOTES. PATIENT CAME BACK FROM THE CLINIC, DUE MEDS WAS GIVEN. WILL MONITOR.
--- NOTE | 2022-08-11 18:59 | NUR ---
RN CLOSING NOTE; PATIENT IN BED, NO SIGN SOB/DISTRESS NOTED. NO BEHAVIORAL CHANGES DURING SHIFT, ALL SAFETY PRECAUTION APPLIED. CALL LIGHT WITHIN REACH, WILL ENDORSED TO NEXT SHIFT.
[2022-08-11 20:17] VITALS: BP 137/71
[2022-08-12 05:46] VITALS: BP 137/71
--- NOTE | 2022-08-12 07:15 | NUR ---
MS RN OPENING NOTES: RECEIVED PT IN BED, AWAKE, ALERT AND ORIENTED X 4 AND ABLE TO VERBALIZED NEEDS. NNO SOB OR CARDIAC DISTRESS NOTED. ON ROOM AIR AND TOLERATING WELL. PT IS CLINICAL TRIAL PT. NO IV ACCESS. NO BEHAVIORAL CHANGES PER NOC SHIFT ENDORSEMENT, WILL MONITOR AND REPORT TO MD IN ANY BEHAVIORAL CHANGES NOTED. SAFETY PRECAUTION MAINTAINED: BED LOCKED AND IN LOWEST POSITION, SIDE RAILS UP X2. CALL LIGHT IN EASY REACH FOR HELP. KEPT RESTED AND COMFORTABLE.
--- NOTE | 2022-08-12 07:20 | NUR ---
MS RN CLOSING NOTES PT IN BED, AWAKE, ALERT AND ORIENTED X 4 AND ABLE TO VERBALIZED NEEDS. NO SOB OR CARDIAC DISTRESS NOTED. ON ROOM AIR AND TOLERATING WELL. PT IS CLINICAL TRIAL PT. NO IV ACCESS. NO BEHAVIORAL CHANGES NOTED, SAFETY PRECAUTION MAINTAINED: BED LOCKED AND IN LOWEST POSITION, SIDE RAILS UP X2. CALL LIGHT IN EASY REACH FOR HELP. KEPT RESTED AND COMFORTABLE. WILL ENDORSED TO NOC SHIFT FOR ERIK.
[2022-08-12] MEDS: INVEST MED CVL-231-2002 PO SCH (10:02)
--- NOTE | 2022-08-12 19:35 | NUR ---
RN OPENING NOTE PATIENT LAYING IN BED, ALERT/ORIENTED X 4, PT ABLE TO MAKE NEEDS KNOWN. PATIENT STABLE ON RA, NO S/S OF DISTRESS OR SOB NOTED, BREATHING EVEN AND UNLABORED. PT DENIES PAIN AT THIS TIME. SAFETY MEASURES IN PLACE: CALL LIGHT WITHIN REACH, SIDE RAILS UP X 2, BED LOCKED IN LOWEST POSITION. WILL CONTINUE TO MONITOR PATIENT
[2022-08-12 20:00] VITALS: BP 108/65
--- NOTE | 2022-08-13 06:25 | NUR ---
RN CLOSING NOTE PATIENT AWAKE IN ROOM, ALERT/ORIENTED X 4, PT ABLE TO MAKE NEEDS KNOWN. PATIENT STABLE ON RA, NO S/S OF DISTRESS OR SOB NOTED, BREATHING EVEN AND UNLABORED. PT DENIES PAIN AT THIS TIME. NO BEHAVIORAL CHANGES THIS SHIFT, PATIENT NEEDS MET THROUGHOUT SHIFT. SAFETY MEASURES IN PLACE: CALL LIGHT WITHIN REACH, SIDE RAILS UP X 2, BED LOCKED IN LOWEST POSITION. WILL ENDORSE TO DAYSHIFT NURSE FOR CONTINUITY OF CARE
--- NOTE | 2022-08-13 07:45 | NUR ---
RN OPENING NOTES PATIENT RECEIVED IN BED, AO X 4, VERBALLY RESPONSIVE ,ON ROOM AIR KARINA WELL,NO SIGN SOB/DISTRESS NOTED. NO C/O OF PAIN AND DISCOMFORT , ON CT TRIALS AND NO BEHAVIORAL CHANGES NOTED. ALL SAFETY PRECAUTION APPLIED. CALL LIGHT WITHIN REACH, WILL CONTINUE TO MONITOR.
[2022-08-13 08:00] VITALS: BP 130/91
[2022-08-13] MEDS: INVEST MED CVL-231-2002 PO SCH (09:03)
--- NOTE | 2022-08-13 18:49 | NUR ---
RN CLOSING NOTES PATIENT IN BED, AO X 4, VERBALLY RESPONSIVE , DUE MEDS WAS GIVEN ORDERED , ON ROOM AIR KARINA WELL,NO SIGN SOB/DISTRESS NOTED. NO C/O OF PAIN AND DISCOMFORT , ON CT TRIALS AND NO BEHAVIORAL CHANGES NOTED. ALL SAFETY PRECAUTION APPLIED. CALL LIGHT WITHIN REACH, WILL CONTINUE TO MONITOR.
--- NOTE | 2022-08-13 19:48 | NUR ---
RN OPENING NOTES PATIENT RECEIVED SITTING IN BED. A/O X 4. AMBULATES WITHOUT DIFFICULTY AND ABLE TO MAKE NEEDS KNOWN. HE IS ON CLINICAL TRIALS AND NO MENTAL OR BEHAVIORAL CHANGES NOTED. VITAL SIGNS STABLE. NO DYSPNEA OR SOB NOTED. SpO2= 93% RA. DENIES PAIN OR ANY DISCOMFORT. SAFETY PRECAUTIONS IN PLACE: BED IN LOWEST AND LOCKED POSITION, SIDE RAILS UP X 2, CALL LIGHT AND TRAY TABLE WITHIN REACH. WILL CONTINUE TO MONITOR.
[2022-08-13 20:00] VITALS: BP 131/90
--- NOTE | 2022-08-14 06:18 | NUR ---
RN CLOSING NOTE PATIENT AWAKE IN ROOM, ALERT/ORIENTED X 4, PT ABLE TO MAKE NEEDS KNOWN. PATIENT STABLE ON RA, NO S/S OF DISTRESS OR SOB NOTED, BREATHING EVEN AND UNLABORED. PT DENIES PAIN AT THIS TIME. NO MENTAL OR BEHAVIORAL CHANGES THIS SHIFT. PATIENT NEEDS MET THROUGHOUT SHIFT. SAFETY MEASURES IN PLACE: CALL LIGHT WITHIN REACH, SIDE RAILS UP X 2, BED LOCKED IN LOWEST POSITION. WILL ENDORSE TO DAYSHIFT NURSE FOR CONTINUITY OF CARE
--- NOTE | 2022-08-14 07:00 | NUR ---
MS RN OPENING NOTE PATIENT LAYING IN BED, A/O X 4, ABLE TO MAKE NEEDS KNOWN, TOLERATING WELL ON ROOM AIR WITH NO S/S RESPIRATORY DISTRESS. NO COMPLAINTS OF PAIN OR DISCOMFORT. SAFETY MEASURES IN PLACE: BED IN LOWEST LOCKED POSITION, SIDE RAILS UP X 2, CALL LIGHT WITHIN REACH. WILL CONTINUE TO MONITOR.
[2022-08-14] MEDS: INVEST MED CVL-231-2002 PO SCH (09:50)
[2022-08-14] MEDS ORDERED: ZOLPIDEM TARTRATE 10 MG TABLET PO PRN (13:00)
--- NOTE | 2022-08-14 18:58 | NUR ---
MS RN CLOSING NOTES PATIENT LAYING IN BED, A/O X 4, ABLE TO MAKE NEEDS KNOWN, TOLERATING WELL ON ROOM AIR WITH NO S/S RESPIRATORY DISTRESS. NO COMPLAINTS OF PAIN OR DISCOMFORT. SAFETY MEASURES IN PLACE: BED IN LOWEST LOCKED POSITION, SIDE RAILS UP X 2, CALL LIGHT WITHIN REACH. ALL NEEDS MET. WILL ENDORSE TO IRRIGATION TEACHER FOR ERIK.
--- NOTE | 2022-08-14 19:50 | NUR ---
MS RN OPENING NOTES PATIENT LAYING IN BED, A/O X 4, ABLE TO MAKE NEEDS KNOWN, TOLERATING WELL ON ROOM AIR WITH NO S/S RESPIRATORY DISTRESS. NO COMPLAINTS OF PAIN OR DISCOMFORT. SAFETY MEASURES IN PLACE: BED IN LOWEST LOCKED POSITION, SIDE RAILS UP X 2, CALL LIGHT WITHIN REACH. ALL NEEDS MET. PT STATED HE WILL BE TAKING A SMOKE BREAK SOON.
--- NOTE | 2022-08-15 06:46 | NUR ---
MS RN CLOSING NOTES PATIENT LAYING IN BED, A/O X 4, ABLE TO MAKE NEEDS KNOWN, TOLERATING WELL ON ROOM AIR WITH NO S/S RESPIRATORY DISTRESS. NO COMPLAINTS OF PAIN OR DISCOMFORT. SAFETY MEASURES IN PLACE: BED IN LOWEST LOCKED POSITION, SIDE RAILS UP X 2, CALL LIGHT WITHIN REACH. ALL NEEDS MET.
--- NOTE | 2022-08-15 07:38 | NUR ---
MS RN OPENING NOTES PATIENT LAYING IN BED, A/O X 4, ABLE TO MAKE NEEDS KNOWN, TOLERATING WELL ON ROOM AIR WITH NO S/S RESPIRATORY DISTRESS. NO COMPLAINTS OF PAIN OR DISCOMFORT. SAFETY MEASURES IN PLACE: BED IN LOWEST LOCKED POSITION, SIDE RAILS UP X 2, CALL LIGHT WITHIN REACH. WILL CONTINUE TO MONITOR.
[2022-08-15] MEDS: INVEST MED CVL-231-2002 PO SCH (09:11)
[2022-08-15 15:49] VITALS: BP 116/79
--- NOTE | 2022-08-15 19:40 | NUR ---
MS RN OPENING NOTES PT NOT IN THE UNIT OR ROOM AT THIS TIME.
[2022-08-15 20:00] VITALS: BP 121/75
--- NOTE | 2022-08-16 07:45 | NUR ---
RN OPENING NOTE RECEIVED PATIENT IN HIS ROOM,ON HIS PHONE LYING IN HIS BED. A/OX4. NO S/S OF DISTRESS, BREATHING WITHOUT DIFFICULTY ON ROOM AIR. AMBULATORY, ABLE TO MAKE NEEDS KNOWN. SAFETY MEASURES CHECKED IN HIS ROOM: BED LOCKED AND AT LOWEST POSITION, RAILS UP X2, CALL LIGHT AND TRAY TABLE WITHIN REACH. BOARD UPDATED FOR HIS REFERENCE. WILL MONITOR DURING MY SHIFT FOR ANY CHANGE OF BEHAVIOR PATTERNS AND SAFETY.
[2022-08-16 08:00] VITALS: BP 119/85
[2022-08-16] MEDS: INVEST MED CVL-231-2002 PO SCH ×2 (10:02→10:30)
--- NOTE | 2022-08-16 10:06 | NUR ---
RN NOTES PATIENT NOT IN HIS ROOM, UNABLE TO GIVE HIS 10 AM MEDICATION. WILL CHECK AGAIN
--- NOTE | 2022-08-16 10:30 | NUR ---
RN NOTES - PT IS BACK IN HIS ROOM, WAS ABLE TO GIVE 10 AM MEDICATION.
--- NOTE | 2022-08-16 18:54 | NUR ---
MS RN CLOSING NOTES PT IN HIS ROOM, WATCHING TV, A/O X4. ABLE TO MAKE NEEDS KNOWN. AMBULATORY WITH STEADY GAIT. ON ROOM AIR, TOLERATING WELL, BREATHING EVEN AND UNLABORED. NO IV ACCESS PER CT PROTOCOL. NO UNUSUAL BEHAVIOR EXHIBITED NOTED DURING SHIFT. SAFETY MEASURES MAINTAINED: BED IN LOWEST LOCKED POSITION, SIDE-RAILS UP APPROPRIATE AND CALL LIGHT WITHIN EASY REACH OF PT. NPO AFTER 2100 TONIGHT, PATIENT IS AWARE. WILL ENDORSE ERIK TO MARKETING SALES REPRESENTATIVE NURSE.
[2022-08-16 20:00] VITALS: BP 138/77
--- NOTE | 2022-08-17 06:24 | NUR ---
RN CLOSING NOTE;316 PATIENT IN BED,AAO X 4, VERBALLY RESPONSIVE ,ON RM AIR KARINA WELL,NO SIGN SOB/DISTRESS NOTED. NO BEHAVIORAL CHANGES DURING SHIFT,ALL SAFETY PRECAUTION APPLIED. CALL LIGHT WITHIN REACH, WILL ENDORSED TO NEXT SHIFT.
--- NOTE | 2022-08-17 07:40 | NUR ---
RN OPENING NOTE - CLINICAL TRIAL RECEIVED PATIENT IN HIS ROOM, LYING IN HIS BED, WATCHING TV, A/OX4. NO S/S OF DISTRESS, BREATHING WITHOUT DIFFICULTY ON ROOM AIR. AMBULATORY, ABLE TO MAKE NEEDS KNOWN. SAFETY MEASURES CHECKED IN HIS ROOM: BED LOCKED AND AT LOWEST POSITION, RAILS UP X2, CALL LIGHT AND TRAY TABLE WITHIN REACH. REMINDED OF 10 AM DUE MEDICATION. BOARD UPDATED FOR HIS REFERENCE. WILL CONTINUE TO MONITOR DURING MY SHIFT FOR ANY CHANGE OF BEHAVIOR PATTERNS AND SAFETY.
[2022-08-17 08:00] VITALS: BP 115/81
[2022-08-17] MEDS: INVEST MED CVL-231-2002 PO SCH ×2 (10:09→11:12)
--- NOTE | 2022-08-17 10:24 | NUR ---
RN NOTES PATIENT NOT IN HIS ROOM SINCE 1000, LEFT A NOTE ON HIS BED TO SEE ME FOR MEDICATION ADMINISTRATION.
--- NOTE | 2022-08-17 11:12 | NUR ---
RN NOTES PATIENT ARRIVED JUST NOW, PATIENT MENTIONED HE WAS AT THERAPY [facility] THE [facility] AT DR STEPHEN'S OFFICE THAT'S WHY HE WAS LATE.
[2022-08-17] MEDS ORDERED: LORAZEPAM 1 MG TABLET FOR AGITATION PO PRN (13:00)
--- NOTE | 2022-08-17 18:51 | NUR ---
RN CLOSING NOTES PATIENT NOT BACK IN HIS ROOM. NO BEHAVIORAL CHANGES NOTED DURING MY SHIFT. WILL ENDORSE TO THE NEXT SHIFT.
--- NOTE | 2022-08-17 19:55 | NUR ---
RN OPENING NOTES ENTERED PATIENT'S ROOM BUT PT NOT PRESENT
[2022-08-17 20:00] VITALS: BP 118/69
--- NOTE | 2022-08-17 20:40 | NUR ---
RN OPENING NOTES PT ARRIVED ONTO UNIT. AOx4, ABLE TO MAKE NEEDS KNOWN. ON RA AND TOLERATING WELL. NO SOB NOTED. NO S/SX OF RESPIRATORY DISTRESS NOTED. IV ACCESS NOT PRESENT BECAUSE PATIENT IS CLINICAL TRIAL STATUS. SAFETY PRECAUTIONS IN PLACE: BED IN LOWEST, LOCKED POSITION, SIDERAILS UPx2, AND BRAKES ON. TABLE AND CALL LIGHT WITHIN REACH. ALL NEEDS MET AT THIS TIME.
--- NOTE | 2022-08-17 21:20 | NUR ---
RN NOTES PT LEFT UNIT.
--- NOTE | 2022-08-17 21:40 | NUR ---
RN NOTES PT RETURNED TO UNIT.
--- NOTE | 2022-08-18 06:37 | NUR ---
RN CLOSING NOTES PT IN ROOM, AWAKE. AOx4, ABLE TO MAKE NEEDS KNOWN. ON RA AND TOLERATING WELL. NO SOB NOTED. NO S/SX OF RESPIRATORY DISTRESS NOTED. IV ACCESS NOT PRESENT BECAUSE PATIENT IS CLINICAL TRIAL STATUS. ALL ORDERS CARRIED OUT. ALL NEEDS MET. PT KEPT CLEAN AND DRY. SAFETY PRECAUTIONS IN PLACE: BED IN LOWEST, LOCKED POSITION, SIDERAILS UPx2, AND BRAKES ON. TABLE AND CALL LIGHT WITHIN REACH. WILL ENDORSE TO ONCOMING SHIFT FOR ERIK.
--- NOTE | 2022-08-18 07:50 | NUR ---
RN OPENING NOTE PATIENT RECEIVED AMBULATING ON UNIT. A/O X4 AND ABLE TO VERBALIZE ALL NEEDS. CONTINEUS TO BE CLINICAL TRIAL STATUS. SAFETY MEASURES INTACT, CALL LIGHT WITHIN REACH. WILL CONT TO MONITOR.
[2022-08-18] MEDS: INVEST MED CVL-231-2002 PO SCH (10:07)
--- NOTE | 2022-08-18 18:50 | NUR ---
RN CLOSING NOTE PATIENT CONTINUES ON CLINICAL TRIAL STATUS. RECEIVED INVESTIGATIONAL MEDICATION AT SCHEDULED TIME. TOLERATED WELL. OBSERVED AMBULATING THROUGHOUT UNIT. NO C/O PAIN. NO DISTRESS OBSERVED OR REPORTED. WILL CONT TO MONITOR. Addendum: 08/18/22 at 1853 by SKYLER DE LA GARZA RN PLEASE DISREGARD PREVIOUS NOTE. INCORRECTLY SUBMITTED FOR INCORRECT PATIENT.
--- NOTE | 2022-08-18 18:53 | NUR ---
RN CLOSING NOTE PATIENT CONTINUES ON CLINICAL TRIAL STATUS. RECEIVED INVESTIGATIONAL MEDICATION AT SCHEDULED TIME. TOLERATED WELL. OBSERVED AMBULATING THROUGHOUT UNIT. NO C/O PAIN. NO DISTRESS OBSERVED OR REPORTED. WILL CONT TO MONITOR
--- NOTE | 2022-08-18 19:42 | NUR ---
RN OPENING NOTES RECEIVED PT IN BED, LAYING ON RIGHT SIDE, ASLEEP, AWAKENS TO VERBALS STIMULI. AOx4, ABLE TO MAKE NEEDS KNOWN. ON RA AND TOLERATING WELL. NO SOB NOTED. NO S/SX OF RESPIRATORY DISTRESS NOTED. IV ACCESS NOT PRESENT DUE TO CLINICAL TRIAL STATUS. SAFETY PRECAUTIONS IN PLACE: BED IN LOWEST, LOCKED POSITION, SIDERAILS UPx2, AND BRAKES ON. TABLE AND CALL LIGHT WITHIN REACH. ALL NEEDS MET AT THIS TIME.
[2022-08-18 20:00] VITALS: BP 113/62
--- NOTE | 2022-08-19 06:49 | NUR ---
RN CLOSING NOTES PT IN BED, LAYING IN BED, ASLEEP, AWAKENS TO VERBAL STIMULI. AOx4, ABLE TO MAKE NEEDS KNOWN. ON RA AND TOLERATING WELL. NO SOB NOTED. NO S/SX OF RESPIRATORY DISTRESS NOTED. IV ACCESS NOT PRESENT DUE TO CLINICAL TRIAL STATUS. ALL ORDERS CARRIED OUT. ALL NEEDS MET. PT KEPT CLEAN AND DRY. SAFETY PRECAUTIONS IN PLACE: BED IN LOWEST, LOCKED POSITION, SIDERAILS UPx2, AND BRAKES ON. TABLE AND CALL LIGHT WITHIN REACH. WILL ENDORSE TO ONCOMING SHIFT FOR ERIK.
--- NOTE | 2022-08-19 07:29 | NUR ---
RN OPENING NOTE RECEIVED PT ASLEEP IN BED, EASILY AROUSED. PT A/O X4, ABLE TO MAKE NEEDS KNOWN. ON RA, TOLERATING WELL. NO SOB NOTED. NOT IN ANY SIGN OF RESPIRATORY DISTRESS. PT HAS NO IV ACCESS. PT REMAINS ON CLINICAL TRIAL WITH NO EPISODES OF BEHAVIOR PROBLEM AT THIS TIME. SAFETY MEASURES IN PLACE: BED IN LOWEST AND LOCKED POSITION, SIDE RAILS UPX2, AND CALL LIGHT WITHIN REACH. WILL CONTINUE TO MONITOR PT.
[2022-08-19 08:00] VITALS: BP 131/107
[2022-08-19] MEDS: INVEST MED CVL-231-2002 PO SCH (10:04)
--- NOTE | 2022-08-19 19:24 | NUR ---
RN CLOSING NOTE PT ASLEEP IN BED, EASILY AROUSED. PT A/O X4, ABLE TO MAKE NEEDS KNOWN. ON RA, TOLERATING WELL. NO SOB NOTED. NOT IN ANY SIGN OF RESPIRATORY DISTRESS. PT HAS NO IV ACCESS. PT REMAINS ON CLINICAL TRIAL WITH NO EPISODES OF BEHAVIOR PROBLEM AT THIS TIME. ALL NEEDS ATTENDED. KEPT CLEAN AND COMFORTABLE. SAFETY MEASURES IN PLACE: BED IN LOWEST AND LOCKED POSITION, SIDE RAILS UPX2, AND CALL LIGHT WITHIN REACH. ENDORSED TO ENTERPRISE APPLICATION ANALYST NURSE FOR ERIK.
--- NOTE | 2022-08-19 19:30 | NUR ---
RN OPENING NOTE PATIENT SEEN WALKING ALONG THE HALLWAY, PATIENT NOT IN ANY APPARENT DISTRESS. PATIENT IS A/O X 4, ABLE TO MAKE NEEDS KNOWN. PATIENT IS A CLINICAL TRIAL PATIENT OF DR. STEPHEN. PATIENT DOES NOT REPORT ANY PAIN AT THIS TIME. NO IV ACCESS NOTED. SAFETY MEASURES IN PLACE: BED LOCKED AND IN LOWEST POSITION, CALL LIGHT WITHIN REACH, SIDE RAILS UP. WILL MONITOR PATIENT CLOSELY.
--- NOTE | 2022-08-20 06:33 | NUR ---
RN CLOSING NOTE PATIENT IN BED, EYES CLOSED, SLEEPING. PATIENT NOT IN ANY APPARENT DISTRESS. PATIENT IS A/O X 4, ABLE TO MAKE NEEDS KNOWN. PATIENT IS A CLINICAL TRIAL PATIENT OF DR. STEPHEN. PATIENT DID NOT REPORT ANY PAIN DURING THE SHIFT. NO IV ACCESS NOTED. SAFETY MEASURES IN PLACE: BED LOCKED AND IN LOWEST POSITION, CALL LIGHT WITHIN REACH, SIDE RAILS UP. ALL NEEDS MET AND ATTENDED. ALL ORDERS CARRIED OUT. WILL ENDORSE TO DAY SHIFT NURSE FOR ERIK.
--- NOTE | 2022-08-20 07:30 | NUR ---
RN OPENING NOTES RECEIVED PT IN BED AWAKE , VERBALLY RESPONSIVE . PT A/O X4, ABLE TO MAKE NEEDS KNOWN. ON RA, TOLERATING WELL. NO SOB NOTED. NOT IN ANY SIGN OF RESPIRATORY DISTRESS. PT HAS NO IV ACCESS. PT REMAINS ON CLINICAL TRIAL WITH NO EPISODES OF BEHAVIOR PROBLEM AT THIS TIME. CALL LIGHT WITHIN REACH. WILL CONTINUE TO MONITOR PT.
[2022-08-20 08:00] VITALS: BP 130/79
[2022-08-20] MEDS: INVEST MED CVL-231-2002 PO SCH (09:48)
--- NOTE | 2022-08-20 18:39 | NUR ---
RN CLOSING NOTES PT IN BED AWAKE , VERBALLY RESPONSIVE . PT A/O X4, ABLE TO MAKE NEEDS KNOWN. ON RA, TOLERATING WELL. INVESTIGATIONAL MEDICATION GIVEN AT 10:00 , NO SOB NOTED. NOT IN ANY SIGN OF RESPIRATORY DISTRESS. NO C/O OF PAIN AND DICOMFORT , PT HAS NO IV ACCESS. PT REMAINS ON CLINICAL TRIAL WITH NO EPISODES OF BEHAVIOR PROBLEM AT THIS TIME. CALL LIGHT WITHIN REACH. ALL NEED ATTENDED AND ENDORSED TO NEXT SHIFT .
--- NOTE | 2022-08-20 19:35 | NUR ---
MS RN OPENING NOTE RECEIVED PATIENT IN BED; AWAKE, ALERT AND ORIENTED X4. BREATHING EQUAL AND UNLABORED. ON ROOM AIR; TOLERATING WELL. NOT IN ANY FORM OF RESPIRATORY DISTRESS. DENIES ANY PAIN OR DISCOMFORT AT THIS TIME. ABLE TO MAKE NEEDS KNOWN. ON CLINICAL TRIAL. NO IV ACCESS. SAFETY MEASURES IMPLEMENTED: CALL LIGHT AND TABLE WITHIN REACH, SIDE RAILS UP X2, BED IN LOWEST LOCKED POSITION. WILL CONTINUE PLAN OF CARE.
[2022-08-20 20:00] VITALS: BP 116/68
--- NOTE | 2022-08-21 06:45 | NUR ---
MS RN CLOSING NOTE PATIENT IN BED; AWAKE, A/O X 4. STABLE ON ROOM AIR. RESPIRATION EVEN AND NONLABORED. IN NO APPARENT DISTRESS. NO C/O ANY PAIN OR DISCOMFORT AT THIS TIME. ALL NEEDS ATTENDED. SAFETY MEASURES MAINTAINED: CALL LIGHT AND TABLE WITHIN REACH, SIDE RAILS UP X2, BED IN LOWEST LOCKED POSITION. ENDORSED TO MORNING SHIFT FOR ERIK.
[2022-08-21 07:00] VITALS: BP 127/75
[2022-08-21] MEDS: INVEST MED CVL-231-2002 PO SCH (10:05)
[2022-08-21] MEDS ORDERED: ZOLPIDEM TARTRATE 10 MG TABLET PO PRN (13:00)
[2022-08-21 16:00] VITALS: BP 103/55
--- NOTE | 2022-08-21 19:16 | NUR ---
RN CLOSING NOTE PT AWAKE AND RESTING IN BED, WATCHING TV. PT A/O X4, ABLE TO MAKE NEEDS KNOWN. ON RA, TOLERATING WELL. NO SOB NOTED. NOT IN ANY SIGN OF RESPIRATORY DISTRESS. PT HAS NO IV ACCESS. PT REMAINS ON CLINICAL TRIAL WITH NO EPISODES OF BEHAVIOR PROBLEM AT THIS TIME. ALL NEEDS ATTENDED. KEPT CLEAN AND COMFORTABLE. SAFETY MEASURES IN PLACE: BED IN LOWEST AND LOCKED POSITION, SIDE RAILS UPX2, AND CALL LIGHT WITHIN REACH. ENDORSED TO QA ARCHITECT NURSE FOR ERIK.
--- NOTE | 2022-08-21 19:25 | NUR ---
MS RN OPENING NOTES: RECEIVED PATIENT AWAKE IN BED, BED IN LOW POSITION CALL LIGHTS WITHIN REACH, NO COMPLAIN OF PAIN AND DISCOMFORT AT THIS TIME , ON ROOM IAR SATURATING WELL, PATIENT IS A/OX4 ABLE TO MAKE NEEDS KNOWN, AMBULATORY, ON CLINICAL TRIAL NO CHANGES IN BEHAVIOR WAS OBSERVED, PATIENT KEPT CLEAN AND DRY ALL NEEDS MET WILL CONTINUE TO MONITOR.
--- NOTE | 2022-08-21 20:30 | NUR ---
RN NOTES: PER MEDIA DEVELOPER PATIENT REFUSED TO CHECK VITALS SIGN, ATTEMPTED AT LATER TIME BUT PATIENT REFUSED.
--- NOTE | 2022-08-22 06:42 | NUR ---
RN CLOSING NOTES: PATIENT SLEEP IN BED COMFORTABLY, AROUSABLE TO VERBAL STIMULI, PATIENT IS A/OX4 AMBULATORY, ABLE TO MAKE NEEDS KNOWN, ON CLINICAL TRIAL NO CHANGES IN BEHAVIOR HAS BEEN OBSERVED DURING THE SHIFT, PALL NEEDS ATTENDED ENDORSE TO INCOMING SHIFT.
[2022-08-22 07:00] VITALS: BP 140/70
--- NOTE | 2022-08-22 07:44 | NUR ---
RN-NOTES RECEIVED PATIENT AMBULATING IN THE HALLWAY A/O X4,CALM,NO ACUTE DISTRESS NOTED.
[2022-08-22] MEDS: INVEST MED CVL-231-2002 PO SCH (10:14)
--- NOTE | 2022-08-22 19:08 | NUR ---
RN-NOTES PATIENT IS VISIBLE IN THE UNIT A/O X4 ,OFF THE UNIT SEVERAL TIMES FOR SMOKING.NO ACUTE DISTRESS NOTED. ABLE TO MAKE NEEDS KNOWN TO THE STAFF. COMPLIANT WITH MEDICATIONS. WILL ENDORSE TO INCOMING NURSE FOR CONTINUITY OF CARE.
--- NOTE | 2022-08-22 19:49 | NUR ---
MS RN NOTES: RECEIVED PATIENT AWAKE IN BED, BED IN LOW POSITION CALL LIGHTS WITHIN REACH, NO COMPLAIN OF PAIN AND DISCOMFORT AT THIS TIME, ON ROOM AIR SATURATING WELL, PATIENT IS A/OX4 AMBULATORY ABLE TO MAKE NEEDS KNOWN, ON CLINICAL TRIAL NO CHANGES IN BEHAVIOR WAS OBSERVED, WILL CONTINUE TO MONITOR.
[2022-08-22 20:00] VITALS: BP 115/77
--- NOTE | 2022-08-22 22:30 | NUR ---
RN NOTE RECEIVED TRANSFER OF CARE REPORT FROM ROLAN BARKER. PATIENT SLEEPING IN ROOM, BREATHING EVEN AND UNLABORED, NO S/S OF DISTRESS. WILL CONTINUE TO MONITOR PATIENT
[2022-08-23 07:00] VITALS: BP 121/62
--- NOTE | 2022-08-23 07:20 | NUR ---
RN OPENING NOTE PATIENT AWAKE IN ROOM, ALERT/ORIENTED X 4. PATIENT IS ON RA, NO S/S OF DISTRESS. PT IS CALM AND DENIES OF HAVING PAIN. SAFETY MEASURES IN PLACE: CALL LIGHT WITHIN REACH, SIDE RAILS UP X 2, BED LOCKED IN LOWEST POSITION.
[2022-08-23] MEDS: INVEST MED CVL-231-2002 PO SCH (09:59)
[2022-08-23 16:00] VITALS: BP 127/76
--- NOTE | 2022-08-23 18:00 | NUR ---
MS RN CLOSING NOTE PATIENT SITTING IN ROOM, ALERT / ORIENTED X 3. PT IS CALM AND DENIES OF HAVING PAIN. PATIENTTOLERATS WELL WITH RA, NO S/S OF DISTRESS. SAFETY MEASURES IN PLACE: CALL LIGHT WITHIN REACH, SIDE RAILS UP X 2, BED LOCKED IN LOWEST POSITION. PATIENT IS ABLE TO MAKE NEEDS, AND HIS NEEDS ARE MET. WILL ENDORSE TO NEXT SHIFT FOR CONTINUITY OF CARE.
[2022-08-23 20:00] VITALS: BP 115/67
--- NOTE | 2022-08-23 20:00 | NUR ---
RN NOTES: PATIENT WAS NOT PRESENT ON ROOM DURING SHIFT ENDORSEMENT AM CHARGE NURSE WAS AWARE
[2022-08-23 23:00] VITALS: BP 115/67
--- NOTE | 2022-08-23 23:03 | NUR ---
RN NOTES: PATIENT CAME BACK ON THE FLOOR AT 2300 REMIND TO BE ON NPO PRIOR TO BLOOD WORKS TOMORROW.
--- NOTE | 2022-08-24 06:19 | NUR ---
MS RN CLOSING NOTES: PATIENT SLEEP IN BED COMFORTABLY, AROUSABLE TO VERBAL STIMULI, BED IN LOW POSITION CALL LIGHTS WITHIN REACH, NO COMPLAIN OF PAIN AND DISCOMFORT AT THIS TIME, ON ROOM AIR SATURATING WELL, PATIENT IS A/OX4 AMBULATORY ABLE TO MAKE NEEDS KNOWN, ON CLINICAL TRIAL. NO CHANGES IN BEHAVIOR WAS OBSERVED, ON NPO PRIOR TO BLOOD WORKS, ALL NEEDS MET ENDORSE TO INCOMING SHIFT.
--- NOTE | 2022-08-24 07:45 | NUR ---
MS RN OPENING NOTE RECEIVED PATIENT AWAKE IN ROOM, ALERT/ORIENTED X 4, ABLE TO VERBALIZE NEEDS. PT ORIENTED TO AM STAFF. PATIENT IS ON RA, NO S/S OF SOB AND ACUTE DISTRESS NOTED. PT DENIES PAIN. SAFETY MEASURES IN PLACE: CALL LIGHT WITHIN REACH, SIDE RAILS UP X 2, BED LOCKED IN LOWEST POSITION, WILL CONTINUE WITH PLAN OF CARE DURING SHIFT.
[2022-08-24] MEDS: INVEST MED CVL-231-2002 PO SCH (10:29)
[2022-08-24] MEDS ORDERED: LORAZEPAM 1 MG TABLET FOR AGITATION PO PRN (13:00)
[2022-08-24 16:00] VITALS: BP 121/83
--- NOTE | 2022-08-24 19:21 | NUR ---
MS RN OPENING NOTES RECEIVED PATIENT RESTING IN BED COMFORTABLY; A/OX4, BREATHING EVEN AND UNLABORED; NO SOB NOTED; BREATHING EVEN AND UNLABORED; NO DISTRESS NOTED; PATIENT DENIES PAIN AT THIS TIME; PATIENT ABLE TO MAKE NEEDS KNOWN; NO IV ACCESS D/T CLINICAL TRIAL; PATIENT AMBULATORY WITH STEADY GAIT; HAS APPROVAL TO LEAVE UNIT TO GET SNACKS AND HAVE SMOKE BREAKS; SAFETY PRECAUTIONS IMPLEMENTED; BED LOCKED IN LOW POSITION; SIDE RAILSX2, CALL LIGHT WITHIN EASY REACH; WILL CONT PLAN OF CARE
--- NOTE | 2022-08-24 19:36 | NUR ---
MS RN CLOSING NOTES: PATIENT AWAKE IN ROOM, ALERT/ORIENTED X 4, ABLE TO VERBALIZE NEEDS. PATIENT IS ON RA, NO S/S OF SOB AND ACUTE DISTRESS NOTED. PT DENIES PAIN. SAFETY MEASURES IN PLACE: CALL LIGHT WITHIN REACH, SIDE RAILS UP X 2, ENDORSED TO PM SHIFT FOR ERIK.
--- NOTE | 2022-08-24 20:00 | NUR ---
MS RN NOTES PATIENT WOULD LIKE TO GO DOWN FOR SMOKE BREAK PRIOR TO HAVING VITALS TAKEN; WILL AWAIT FOR PATIENT RETURN BACK TO UNIT FOR VITALS;
--- NOTE | 2022-08-24 20:30 | NUR ---
MS RN NOTES PATIENT REFUSING FOR VITALS TO BE ASSESSED
--- NOTE | 2022-08-25 06:35 | NUR ---
MS RN CLOSING NOTES RECEIVED PATIENT RESTING IN BED COMFORTABLY; A/OX4, BREATHING EVEN AND UNLABORED; NO SOB NOTED; BREATHING EVEN AND UNLABORED; NO DISTRESS NOTED; PATIENT DENIES PAIN AT THIS TIME; PATIENT ABLE TO MAKE NEEDS KNOWN; NO IV ACCESS D/T CLINICAL TRIAL; PATIENT AMBULATORY WITH STEADY GAIT; HAS APPROVAL TO LEAVE UNIT TO GET SNACKS AND HAVE SMOKE BREAKS; PATIENT LEFT UNIT THROUGHOUT THE NIGHT AND SIGNED OUT ORDERED; ALL NEEDS RENDERED; SAFETY PRECAUTIONS IMPLEMENTED; BED LOCKED IN LOW POSITION; SIDE RAILSX2, CALL LIGHT WITHIN EASY REACH; WILL ENDORSE ERIK TO ONCOMING SHIFT
--- NOTE | 2022-08-25 07:46 | NUR ---
RN OPENING NOTE PATIENT AWAKE IN BED RESTING. A/O X4, NO PAIN NOTED AT THIS TIME. ON ROOM AIR, NO DISTRESS OR SHORTNESS OF BREATH NOTED. NO IV ACCESS, CLINICAL TRIAL PATIENT. FALL AND SAFETY MEASURES IN PLACE, BED ALARM ON, BED IN LOW AND LOCK POSITION, CALL LIGHT AND TABLE WITHIN EASY REACH, SIDE RAILS UP X2. WILL CONTINUE TO MONITOR.
[2022-08-25] MEDS: INVEST MED CVL-231-2002 PO SCH (10:17)
[2022-08-25 16:02] VITALS: BP 130/84
--- NOTE | 2022-08-25 18:49 | NUR ---
RN CLOSING NOTE PATIENT AWAKE IN BED RESTING. A/O X4, NO PAIN NOTED AT THIS TIME. ON ROOM AIR, NO DISTRESS OR SHORTNESS OF BREATH NOTED. NO IV ACCESS, CLINICAL TRIAL PATIENT. FALL AND SAFETY MEASURES IN PLACE, BED IN LOW AND LOCK POSITION, CALL LIGHT AND TABLE WITHIN EASY REACH, SIDE RAILS UP X2. WILL ENDORSE TO BURNER OPERATOR.
--- NOTE | 2022-08-25 19:30 | NUR ---
MS RN OPENING NOTES RECEIVED PATIENT AWAKE, CURRENTLY USING THE RESTROOM. A/O X4. BREATHING EVEN AND NON-LABORED ON ROOM AIR. NOT IN APPARENT DISTRESS. DENIES PAIN AT THIS TIME. REQUESTING AN EGG SANDWICH BECAUSE HE DIDN'T LIKE HIS DINNER. NO IV ACCESS, ON CLINICAL TRIAL. SAFETY PRECAUTIONS IN PLACE: BED LOW AND LOCKED, SIDE RAILS UP X2, CALL LIGHT WITHIN REACH. WILL CONTINUE POC.
[2022-08-25 20:00] VITALS: BP 117/82
--- NOTE | 2022-08-26 07:13 | NUR ---
MS RN CLOSING NOTES PATIENT LYING IN BED ASLEEP, EASY TO AROUSE. A/O X4. ABLE TO VERBALIZE NEEDS. NO SOB OR NOTED, TOLERATING ROOM AIR WELL. NO ACUTE DISTRESS NOTED. NO PAIN OR DISCOMFORT VERBALIZED. AFEBRILE. NO IV ACCESS, ON CLINICAL TRIAL. ALL NEEDS ATTENDED AND ANTICIPATED. NO BEHAVIOR ISSUES NOTED. SAFETY PRECAUTIONS MAINTAINED. WILL ENDORSE TO NEXT SHIFT FOR ERIK.
--- NOTE | 2022-08-26 07:55 | NUR ---
RN OPENING NOTE PATIENT AWAKE IN BED RESTING. A/O X4, NO PAIN NOTED AT THIS TIME. ON ROOM AIR, NO DISTRESS OR SHORTNESS OF BREATH NOTED. NO IV ACCESS, CLINICAL TRIAL PATIENT. FALL AND SAFETY MEASURES IN PLACE, BED IN LOW AND LOCK POSITION, CALL LIGHT AND TABLE WITHIN EASY REACH, SIDE RAILS UP X2. WILL CONTINUE TO MONITOR.
[2022-08-26] MEDS: INVEST MED CVL-231-2002 PO SCH ×2 (10:02→10:42)
--- NOTE | 2022-08-26 19:30 | NUR ---
MS RN OPENING NOTES PATIENT NOT PRESENT IN ROOM DURING ENDORSEMENT.
--- NOTE | 2022-08-26 19:33 | NUR ---
RN CLOSING NOTE PATIENT AWAKE IN BED RESTING. A/O X4, NO PAIN NOTED AT THIS TIME. ON ROOM AIR, NO DISTRESS OR SHORTNESS OF BREATH NOTED. NO IV ACCESS, CLINICAL TRIAL PATIENT. FALL AND SAFETY MEASURES IN PLACE, BED IN LOW AND LOCK POSITION, CALL LIGHT AND TABLE WITHIN EASY REACH, SIDE RAILS UP X2. PATIENT REFUSED VITAL SIGNS DURING THE SHIFT. WILL ENDORSE TO [employer] SALES REPRESENTATIVE.
[2022-08-26 20:00] VITALS: BP 129/75
--- NOTE | 2022-08-26 20:00 | NUR ---
MS RN NOTES PATIENT BACK TO UNIT WITH ANOTHER PATIENT. A/O X4. BREATHING EVEN AND NON-LABORED ON ROOM AIR. NOT IN APPARENT DISTRESS. DENIES PAIN AT THIS TIME. NO IV ACCESS, ON CLINICAL TRIAL. SAFETY PRECAUTIONS IN PLACE: BED LOW AND LOCKED, SIDE RAILS UP X2, CALL LIGHT WITHIN REACH. WILL CONTINUE POC.
[2022-08-27 07:00] VITALS: BP 145/96
--- NOTE | 2022-08-27 07:00 | NUR ---
MS RN CLOSING NOTES PATIENT LYING IN BED ASLEEP, EASY TO AROUSE. A/O X4. NO SOB OR NOTED, TOLERATING ROOM AIR WELL. NOT IN ACUTE DISTRESS. NO S/S OF PAIN NOTED. AFEBRILE. NO IV ACCESS, ON CLINICAL TRIAL. ALL NEEDS ATTENDED. SAFETY PRECAUTIONS MAINTAINED. WILL ENDORSE TO NEXT SHIFT FOR ERIK.
--- NOTE | 2022-08-27 07:20 | NUR ---
ms rn patient in the room awake,alert,oriented x4, clinical trial of ,denies pain at this time,no distress noted.will continue to monitor.
--- NOTE | 2022-08-27 10:05 | NUR ---
ms r meds to be given this time, patient is not around, went down, md office is aware.
[2022-08-27] MEDS: INVEST MED CVL-231-2002 PO SCH (10:06)
--- NOTE | 2022-08-27 10:20 | NUR ---
ms rn patient came back from outside, meds given,tolerated well.
--- NOTE | 2022-08-27 12:00 | NUR ---
ms pattern drafterslab polisher came to draw blood, patient is not around again, tech cannot come back again for him, [facility] office, made aware that blood was not drawn.
[2022-08-27 16:00] VITALS: BP 134/80
[2022-08-27 20:00] VITALS: BP_SYST 117; BP_SYST 133; BP_SYST 134; BP_DIAS 65; BP_DIAS 79; BP_DIAS 80
--- NOTE | 2022-08-28 05:25 | NUR ---
CLOSING NOTES: A/O X4 AMBULATES SLEPT THRU THE NIGHT 9 HOURS W/O SLEEP AID
--- NOTE | 2022-08-28 08:45 | NUR ---
RN OPENING NOTE PATIENT SITTING IN BED, ALERT AND ORIENTED X4. ABLE TO COMMUNICATE NEEDS WITH THE STAFFS. AFEBRILE AND NOT ON ANY FORM OF ACUTE DISTRESS. BREATHING EVEN AND NON LABORED. NO C/O PAIN OR DISCOMFORT AT THIS TIME. SAFETY MEASURES IN PLACE. KEPT BED IN LOCKED AND IN LOW POSITION TO REDUCE INJURY. ADVISED TO USE THE CALL LIGHT WHEN IN NEED OF ASSISTANCE. ALL NURSING NEEDS ATTENDED.
[2022-08-28] MEDS: INVEST MED CVL-231-2002 PO SCH (10:14)
--- NOTE | 2022-08-28 18:43 | NUR ---
ms rn inside room ,eating dinner,denies pain, was seen by dr. rey,no further order made,all needs attended.
[2022-08-28 20:00] VITALS: BP 108/71
--- NOTE | 2022-08-28 20:00 | NUR ---
PATIENT IN BED, ALERT/ORIENTED X4, ROOM AIR, NO COMPLAIN OF PAIN, CLINICAL TRIAL, NO MEDICATION AT NIGHT. INDEPENDENT, SMOKER, SIGNS IN AND OUT. WILL CONTINUE TO MONITOR.
--- NOTE | 2022-08-29 06:03 | NUR ---
CLINICAL TRIAL, ALERT/ORIENTED X4, ROOM AIR, NO COMPLAIN OF PAIN, SLEPT 7 HRS.
--- NOTE | 2022-08-29 07:10 | NUR ---
MS GONGORA OPENING NOTES Pt received awake in bed, A/O x4. On room air. No signs of SOB and unlabored breathing. Safety measures in place. Side rails up x2. Will continue to monitor patient. Addendum: 08/29/22 at 0747 by DEBBIE HURTADO RN Correction: No signs of labored breathing (not unlabored breathing)
[2022-08-29 08:00] VITALS: BP 126/79
[2022-08-29] MEDS: INVEST MED CVL-231-2002 PO SCH (10:27)
--- NOTE | 2022-08-29 11:00 | NUR ---
MS RN WENT DOWN, PATIENT HAS NO FURTHER ORDER AT THIS TIME.
[2022-08-29 16:00] VITALS: BP 116/79
--- NOTE | 2022-08-29 18:27 | NUR ---
MS RN PATIENT HAS BEEN STABLE THE WHOLE SHIFT, NO DISTRESS NOTED,NO FURTHER ORDER FROM DR. STEPHEN AT THIS TIME, ALL NEEDS ATTENDED.
--- NOTE | 2022-08-29 20:01 | NUR ---
ALERT/ORIENTED X4, ROOM AIR, NO DISTRESS, CALM, COOPERATIVE, GOING TO SMOKE, WILL CONTINUE TO MONITOR.
--- NOTE | 2022-08-30 06:55 | NUR ---
CLINICAL TRIAL, NO BEHAVIOR, NO MEDICATION GIVEN. VS STABLE. REMINDED PATIENT THAT ATIVAN WILL NOT BE GIVEN ON 08/30/22 AT 2100
--- NOTE | 2022-08-30 07:55 | NUR ---
RN OPENING NOTE PATIENT AWAKE IN BED. A/O X4, PATIENT IS BEING VERY LOUD WHILE WATCHING TV AND TALKING ON THE PHONE, PATIENT BEHAVIOR WAS DISTURBING OTHER PATIENT, PATIENT WAS REDIRECTED TO PLEASE NOT TO MAKE TOO MUCH NOISE. NO PAIN NOTED AT THIS TIME. ON ROOM AIR, NO DISTRESS OR SHORTNESS OF BREATH NOTED. NO IV ACCESS, CLINICAL TRIAL PATIENT. FALL AND SAFETY MEASURES IN PLACE, BED ALARM ON, BED IN LOW AND LOCK POSITION, CALL LIGHT AND TABLE WITHIN EASY REACH, SIDE RAILS UP X2. WILL CONTINUE TO MONITOR.
[2022-08-30 10:21] VITALS: BP 140/92
[2022-08-30] MEDS: INVEST MED CVL-231-2002 PO SCH (10:25)
--- NOTE | 2022-08-30 19:07 | NUR ---
RN CLOSING NOTE PATIENT AWAKE IN BED RESTING. A/O X4, NO PAIN NOTED AT THIS TIME. ON ROOM AIR, NO DISTRESS OR SHORTNESS OF BREATH NOTED. NO IV ACCESS, CLINICAL TRIAL PATIENT. FALL AND SAFETY MEASURES IN PLACE, BED IN LOW AND LOCK POSITION, CALL LIGHT AND TABLE WITHIN EASY REACH, SIDE RAILS UP X2. WILL ENDORSE TO FIRE DEPARTMENT MARINE ENGINEER.
[2022-08-30 20:00] VITALS: BP 124/96
[2022-08-30 20:35] VITALS: BP 124/96
--- NOTE | 2022-08-31 01:55 | NUR ---
RN NOTE TRANSFER OF CARE GIVEN TO SHIVA GONGORA.
--- NOTE | 2022-08-31 02:00 | NUR ---
MS RN NOTE: RECEIVED PATIENT FROM ALEXANDREA. PATIENT SLEEPING AT THIS TIME, NO ACUTE DISTRESS NOTED. BREATHING EVEN AND UNLABORED, NO SOB NOTED. BED LOCKED AND IN LOWEST POSITION, CALL LIGHT IN REACH. WILL CONTINUE TO MONITOR.
--- NOTE | 2022-08-31 06:10 | NUR ---
MS RN NOTE: PATIENT RESTING IN, NO ACUTE DISTRESS NOTED. BREATHING EVEN AND UNLABORED, NO SOB NOTED. BED LOCKED AND IN LOWEST POSITION, CALL LIGHT IN REACH. WILL ENDORSE TO DAY NURSE.
--- NOTE | 2022-08-31 07:25 | NUR ---
MS RN OPENING NOTES RECEIVED PATIENT SITTING ON HIS BED. A/O X4. ABLE TO MAKE NEEDS KNOWN, DENIES PAIN OR ANY DISCOMFORTS AT THIS TIME. ON ROOM AIR, NOT IN ANY FORM OF RESPIRATORY DISTRESS. BREATHING EVEN AND UNLABORED. ON CLINICAL TRIAL. NO IV ACCESS. CALL LIGHT WITHIN REACH. WILL CONTINUE PLAN OF CARE.
[2022-08-31] MEDS: INVEST MED CVL-231-2002 PO SCH (10:02)
[2022-08-31] MEDS ORDERED: LORAZEPAM 1 MG TABLET FOR AGITATION PO PRN (13:00)
--- NOTE | 2022-08-31 16:10 | NUR ---
RN NOTES PT REFUSED VITAL SIGNS TO BE TAKEN THIS AFTERNOON.
--- NOTE | 2022-08-31 18:49 | NUR ---
MS RN CLOSING NOTES PATIENT RESTING IN HIS BED AT THIS TIME. A/O X4. ABLE TO MAKE NEEDS KNOWN. AMBULATORY. ON ROOM AIR, NOT IN ANY FORM OF RESPIRATORY DISTRESS. BREATHING EVEN AND UNLABORED. NO IV ACCESS. ON CLINICAL TRIAL, NO BEHAVIORAL PROBLEM EXHIBITED DURING SHIFT. CALL LIGHT WITHIN REACH. WILL ENDORSE PLAN OF CARE TO PATROL COMMANDER NURSE.
--- NOTE | 2022-08-31 19:30 | NUR ---
MS RN OPENING NOTE RECEIVED PATIENT LAYING IN BED. PT A/O X4. ABLE TO MAKE NEEDS KNOWN, DENIES PAIN OR ANY DISCOMFORT AT THIS TIME. ON ROOM AIR. NO S/S OF RESPIRATORY DISTRESS NOTED. BREATHING EVEN AND UNLABORED. PT IS ON CLINICAL TRIAL. NO IV ACCESS. SAFETY MEASURES MAINTAINED: CALL LIGHT WITHIN REACH, BED LOCKED IN LOW POSITION, SIDE RAILS UP X2. WILL CONTINUE TO MONITOR PT.
[2022-09-01 07:00] VITALS: BP 134/79
--- NOTE | 2022-09-01 07:07 | NUR ---
MS RN CLOSING NOTE LEFT PATIENT RESTING IN HIS BED. A/O X4. ABLE TO MAKE NEEDS KNOWN. AMBULATORY. ON ROOM AIR, NOT IN ANY FORM OF RESPIRATORY DISTRESS. BREATHING EVEN AND UNLABORED. NO IV ACCESS. ON CLINICAL TRIAL, NO BEHAVIORAL PROBLEM NOTED DURING SHIFT. SAFETY MEASURES IN PLACE: CALL LIGHT WITHIN REACH, BED LOCKED IN LOW POSITION,SIDE RAILS UP X2. WILL ENDORSE PLAN OF CARE TO MORNING SHIFT NURSE.
--- NOTE | 2022-09-01 07:40 | NUR ---
RN OPENING NOTE PATIENT RECEIVED UP AND AMBULATING UNIT UPON ASSESSMENT, HOWEVER RETRIEVED TO BEDROOM SOON AFTER. A/O X4. NO RESPIRATORY DISTRESS OBSERVED UPON ASSESSMENT. SAFETY MEASURES INTACT WITH BED LOW AND LOCKED. CALL LIGHT WITHIN REACH. WILL CONT TO MONITOR.
[2022-09-01] MEDS: INVEST MED CVL-231-2002 PO SCH (10:39)
--- NOTE | 2022-09-01 18:18 | NUR ---
RN CLOSING NOTE PATIENT REMAINED UP AND AMBULATING UNIT THROUGHOUT SHIFT. REMAINS ON CLINICAL TRIAL STATUS. INVESTIGATIONAL MEDICATION GIVEN ON SHIFT. TOLERATED WELL. A/O X4 AND ABLE TO VERBALIZE ALL NEEDS. NO RESPIRATORY DISTRESS OBSERVED UPON ASSESSMENT. NO BEHAVIORAL ISSUES. SAFETY MEASURES INTACT WITH BED LOW AND LOCKED. CALL LIGHT WITHIN REACH. WILL CONT TO MONITOR.
[2022-09-01 20:00] VITALS: BP 111/84
--- NOTE | 2022-09-01 20:20 | NUR ---
RN OPENING NOTE PATIENT ON CLINICAL TRIAL STATUS. INVESTIGATIONAL MEDICATION A/O X4 AND ABLE TO VERBALIZE ALL NEEDS. NO RESPIRATORY DISTRESS OBSERVED UPON ASSESSMENT. NO BEHAVIORAL ISSUES. SAFETY MEASURES INTACT WITH BED LOW AND LOCKED. CALL LIGHT WITHIN REACH.
--- NOTE | 2022-09-02 06:45 | NUR ---
RN CLOSING NOTE PATIENT ON CLINICAL TRIAL STATUS. A/O X4 AND ABLE TO VERBALIZE ALL NEEDS. NO RESPIRATORY DISTRESS OBSERVED UPON ASSESSMENT. NO BEHAVIORAL ISSUES. SAFETY MEASURES INTACT WITH BED LOW AND LOCKED. CALL LIGHT WITHIN REACH.
[2022-09-02 08:00] VITALS: BP 136/72
[2022-09-02] MEDS: INVEST MED CVL-231-2002 PO SCH (09:59)
[2022-09-02 15:28] VITALS: BP 126/72
--- NOTE | 2022-09-02 18:14 | NUR ---
SHIFT SUMMARY PATIENT IS A/O X4, ON ROOM AIR, SATURATING WELL. AMBULATORY WITH STEADY GAIT. ABLE TO MAKE NEEDS KNOWN. MED GIVEN ORDERED. SAFETY MEASURES MAINTAINED. BED IN LOWEST POSITION, BRAKES LOCKED. SIDE RAILS UP X2. CALL LIGHT WITHIN REACH. WILL ENDORSE CONTINUITY OF CARE TO ONCOMING SHIFT.
--- NOTE | 2022-09-02 19:10 | NUR ---
MS RN OPENING NOTE RECEIVED PATIENT RESTING IN BED A/OX4. ON ROOM AIR WITH EQUAL AND UNLABORED BREATHING, NO SOB NOTED; PATIENT DENIES PAIN AT THIS TIME; PATIENT ABLE TO MAKE NEEDS KNOWN; NO IV ACCESS. PATIENT AMBULATORY WITH STEADY GAIT; SAFETY PRECAUTIONS IMPLEMENTED; BED LOCKED IN LOW POSITION; SIDE RAILSX2, CALL LIGHT WITHIN EASY REACH; WILL CONTINUE TO MONITOR PATIENT.
[2022-09-02 20:00] VITALS: BP 121/75
--- NOTE | 2022-09-03 06:57 | NUR ---
MS RN CLOSING NOTE PATIENT RESTING IN BED A/OX4. ON ROOM AIR WITH EQUAL AND UNLABORED BREATHING, NO SOB NOTED; PATIENT DENIES PAIN AT THIS TIME; PATIENT ABLE TO MAKE NEEDS KNOWN; NO IV ACCESS. PATIENT AMBULATORY WITH STEADY GAIT; SAFETY PRECAUTIONS IMPLEMENTED; BED LOCKED IN LOW POSITION; SIDE RAILSX2, CALL LIGHT WITHIN EASY REACH; NO UNTOWARD BEHAVIOR NOTED THE ENTIRE SHIFT. WILL ENDORSE TO NEXT SHIFT FOR CONTINUITY OF CARE.
--- NOTE | 2022-09-03 07:15 | NUR ---
MS RN OPENING NOTES RECEIVED PT, RESTING IN BED A/O X4. ON ROOM AIR WITH NO SIGNS OF SOB OR LABORED BREATHING. PATIENT ABLE TO MAKE NEEDS KNOWN. PATIENT AMBULATORY WITH STEADY GAIT; SAFETY PRECAUTIONS IMPLEMENTED; BED LOCKED IN LOW POSITION; SIDE RAILS X2, CALL LIGHT WITHIN EASY REACH; WILL CONTINUE TO MONITOR PATIENT.
[2022-09-03 08:41] VITALS: BP 136/90
[2022-09-03] MEDS: INVEST MED CVL-231-2002 PO SCH (09:56)
--- NOTE | 2022-09-03 18:17 | NUR ---
MS RN CLOSING NOTES PT AWAKE, SITTING IN BED. A/O X4. STABLE ON ROOM AIR WITH NO SIGNS OF SOB OR LABORED BREATHING. PATIENT ABLE TO MAKE NEEDS KNOWN. PATIENT AMBULATORY WITH STEADY GAIT. PT TOLERATED PRESCRIBED MEDICATIONS WELL. SAFETY PRECAUTIONS MAINTAINED. BED LOCKED AND IN LOW POSITION. SIDE RAILS X2. CALL LIGHT WITHIN REACH. WILL ENDORSE TO FOOD AND DRUG RESEARCH SCIENTIST ANY ERIK.
--- NOTE | 2022-09-03 19:45 | NUR ---
MS RN OPENING NOTE PATIENT RESTING IN BED A/O X4. NO DYSPNEA OR SOB NOTED. ABLE TO MAKE NEEDS KNOWN. PATIENT AMBULATORY WITH STEADY GAIT. NO AKATHISIA OR TREMORS NOTED. NO MEDICAL OR BEHAVIORAL INSTABILITY NOTED EITHER. SAFETY PRECAUTIONS IN PLACE: BED LOCKED AND IN LOWEST POSITION, SIDE RAILS UP X2, CALL LIGHT AND TRAY TABLE WITHIN EASY REACH. WILL CONTINUE TO MONITOR PATIENT.
[2022-09-03 20:00] VITALS: BP 123/79
[2022-09-04 05:38] VITALS: BP 123/79
--- NOTE | 2022-09-04 07:20 | NUR ---
RN CLOSING NOTE PATIENT RESTING IN BED A/O X4. NO DYSPNEA OR SOB NOTED. ABLE TO MAKE NEEDS KNOWN. PATIENT AMBULATORY WITH STEADY GAIT. NO AKATHISIA OR TREMORS NOTED. NO MEDICAL OR BEHAVIORAL INSTABILITY NOTED EITHER. SAFETY PRECAUTIONS MAINTAINED: BED LOCKED AND IN LOWEST POSITION, SIDE RAILS UP X2, CALL LIGHT AND TRAY TABLE WITHIN EASY REACH. WILL ENDORSE TO NEXT SHIFT FOR ERIK.
--- NOTE | 2022-09-04 07:30 | NUR ---
ms rn patient in the room, awake,alert,oriented x4,clinical trial pt, oriented x4,not in any form of distress,respirations even and unlabored,no sob noted.denies pain at this time,all needs attended.
[2022-09-04 08:55] VITALS: BP 130/98
--- NOTE | 2022-09-04 10:00 | NUR ---
ms rn patient is down outside.
[2022-09-04] MEDS: INVEST MED CVL-231-2002 PO SCH (10:02)
--- NOTE | 2022-09-04 10:30 | NUR ---
ms rn came back, due meds given.
[2022-09-04] MEDS ORDERED: ZOLPIDEM TARTRATE 10 MG TABLET PO PRN (13:00)
--- NOTE | 2022-09-04 17:00 | NUR ---
ms rn patient inside room, all needs attended.
--- NOTE | 2022-09-04 18:58 | NUR ---
ms rn Pt in room resting. In stable condition at this time. Will endorse continuity of care.
--- NOTE | 2022-09-04 19:25 | NUR ---
MS RN OPENING NOTE PATIENT AMBULATING IN ROOM, A/O X4. ABLE TO MAKE NEEDS KNOWN. NO ACUTE DISTRESS SEEN AT THIS TIME. NO AKATHISIA OR TREMORS NOTED. NO MEDICAL OR BEHAVIORAL INSTABILITY NOTED EITHER. SAFETY PRECAUTIONS IN PLACE: BED LOCKED AND IN LOWEST POSITION, SIDE RAILS UP X2, CALL LIGHT AND BED SIDE TABLE WITHIN EASY REACH. WILL CONTINUE TO MONITOR PATIENT.
[2022-09-04 20:00] VITALS: BP 142/90
--- NOTE | 2022-09-05 06:56 | NUR ---
MS RN CLOSING NOTE PATIENT RESTING IN BED. PT A/O X4, ABLE TO MAKE NEEDS KNOWN. NO ACUTE DISTRESS NOTED. NO AKATHISIA OR TREMORS NOTED. NO MEDICAL OR BEHAVIORAL INSTABILITY OBSERVED AT THIS TIME. SAFETY PRECAUTIONS MAINTAINED: BED LOCKED AND IN LOWEST POSITION, SIDE RAILS UP X2, CALL LIGHT WITHIN REACH. WILL ENDORSE PT'S CARE TO NEXT SHIFT NURSE.
--- NOTE | 2022-09-05 07:33 | NUR ---
MS RN OPENING NOTE RECEIVED PATIENT IN BED AWAKE , A/O X4. ABLE TO MAKE NEEDS KNOWN. NO ACUTE DISTRESS SEEN AT THIS TIME . ROOM AIR , ON CLINICAL TRIAL , NO C/O OF APIN AND DISCOMFORT NOTED . NO MEDICAL OR BEHAVIORAL INSTABILITY NOTED . SAFETY PRECAUTIONS IN PLACE: BED LOCKED AND IN LOWEST POSITION, SIDE RAILS UP X2, CALL LIGHT AND BED SIDE TABLE WITHIN EASY REACH. WILL CONTINUE TO MONITOR PATIENT.
[2022-09-05 08:00] VITALS: BP 126/79
[2022-09-05] MEDS: INVEST MED CVL-231-2002 PO SCH (10:05)
--- NOTE | 2022-09-05 18:50 | NUR ---
MS RN CLOSING NOTE RECEIVED PATIENT IN BED AWAKE , A/O X4. ABLE TO MAKE NEEDS KNOWN. NO ACUTE DISTRESS SEEN AT THIS TIME . ROOM AIR , ON CLINICAL TRIAL , NO C/O OF PAIN AND DISCOMFORT NOTED . NO MEDICAL OR BEHAVIORAL INSTABILITY NOTED . SAFETY PRECAUTIONS IN PLACE: BED LOCKED AND IN LOWEST POSITION, SIDE RAILS UP X2, CALL LIGHT AND BED SIDE TABLE WITHIN EASY REACH. ENDORSE TO NEXT SHIFT .
--- NOTE | 2022-09-05 19:20 | NUR ---
MS RN OPENING NOTE RECEIVED PATIENT SITTING IN ROOM, A/O X4. ABLE TO MAKE NEEDS KNOWN. NO ACUTE DISTRESS SEEN AT THIS TIME. NO AKATHISIA OR TREMORS NOTED. NO MEDICAL OR BEHAVIORAL INSTABILITY NOTED EITHER. SAFETY PRECAUTIONS IN PLACE: BED LOCKED AND IN LOWEST POSITION, SIDE RAILS UP X2, CALL LIGHT AND BED SIDE TABLE WITHIN EASY REACH. WILL CONTINUE TO MONITOR PATIENT.
[2022-09-05 21:00] VITALS: BP 100/51
[2022-09-06 07:00] VITALS: BP 135/81
--- NOTE | 2022-09-06 07:38 | NUR ---
MS RN OPENING NOTE RECEIVED PT AWAKE, SITTING IN BED. A/O X4. ABLE TO MAKE NEEDS KNOWN. NO SIGNS OF SOB OR LABORED BREATHING. SAFETY PRECAUTIONS IMPLEMENTED. BED LOCKED AND IN LOWEST POSITION. SIDE RAILS UP X2. CALL LIGHT AND TRAY TABLE WITHIN REACH. WILL CONTINUE TO MONITOR PT.
[2022-09-06] MEDS: INVEST MED CVL-231-2002 PO SCH (10:00)
--- NOTE | 2022-09-06 17:00 | NUR ---
RN NOTES REPORTED TO DR CHUA OF PT'S [facility] RESULTS AND DR CHUA CLEARED PT FOR D/C. INFORMED SILK EXAMINER MANUELA WOO WITH ORDER TO D/C HOME PT. Addendum: 09/06/22 at 1904 by DEBBIE HURTADO RN ERROR: WRONG PATIENT
--- NOTE | 2022-09-06 18:49 | NUR ---
MS RN CLOSING NOTE PATIENT IS OUTSIDE THE HOSPITAL AT THIS MOMENT. PT IS A/O X4, ABLE TO MAKE NEEDS KNOWN. NO ACUTE DISTRESS NOTED. NO AKATHISIA OR TREMORS NOTED. NO MEDICAL OR BEHAVIORAL INSTABILITY OBSERVED DURING SHIFT. WILL ENDORSE POC TO NEXT SHIFT NURSE
--- NOTE | 2022-09-06 19:30 | NUR ---
MS RN OPENING NOTE RECEIVED PATIENT LAYING IN BED, A/O X4. ABLE TO MAKE NEEDS KNOWN. NO ACUTE DISTRESS SEEN AT THIS TIME. NO AKATHISIA OR TREMORS NOTED. NO MEDICAL OR BEHAVIORAL INSTABILITY NOTED EITHER. SAFETY PRECAUTIONS IN PLACE: BED LOCKED AND IN LOWEST POSITION, SIDE RAILS UP X2, CALL LIGHT AND BED SIDE TABLE WITHIN EASY REACH. WILL CONTINUE TO MONITOR PATIENT.
[2022-09-06 20:00] VITALS: BP 122/86
--- NOTE | 2022-09-07 07:16 | NUR ---
MS RN OPENING NOTES PATIENT RECEIVED AWAKE AND RESTING IN HIS BED. A/O X4. ABLE TO MAKE NEEDS KNOWN. ON ROOM AIR, NO SIGNS OF SOB OR LABORED BREATHING NOTED. SAFETY PRECAUTIONS MAINTAINED: BED LOCKED AND IN LOWEST POSITION. SIDE RAILS UP X2. CALL LIGHT WITHIN REACH. WILL CONTINUE TO MONITOR PT.
--- NOTE | 2022-09-07 07:20 | NUR ---
MS RN CLOSING NOTE LEFT PATIENT RESTING IN BED. PT A/O X4, ABLE TO MAKE NEEDS KNOWN. NO ACUTE DISTRESS NOTED. NO AKATHISIA OR TREMORS NOTED. NO MEDICAL OR BEHAVIORAL INSTABILITY OBSERVED AT THIS TIME. SAFETY PRECAUTIONS MAINTAINED: BED LOCKED AND IN LOWEST POSITION, SIDE RAILS UP X2, CALL LIGHT WITHIN REACH. WILL ENDORSE PT'S CARE TO NEXT SHIFT NURSE.
[2022-09-07 08:00] VITALS: BP 148/78
[2022-09-07] MEDS: INVEST MED CVL-231-2002 PO SCH (10:44)
[2022-09-07] MEDS ORDERED: LORAZEPAM 1 MG TABLET FOR AGITATION PO PRN (13:00)
[2022-09-07 16:00] VITALS: BP 135/87
--- NOTE | 2022-09-07 18:41 | NUR ---
MS RN CLOSING NOTES PATIENT NOT IN THE UNIT AT THIS TIME. PT IS A/O X4, ABLE TO MAKE NEEDS KNOWN. AMBULATORY NO ACUTE DISTRESS NOTED. PT ON CLINICAL TRIAL MEDICATION, NO AKATHISIA, EPS OR TREMORS NOTED. NO MEDICAL OR BEHAVIORAL INSTABILITY OBSERVED DURING SHIFT. WILL ENDORSE POC TO NEXT SHIFT NURSE
--- NOTE | 2022-09-07 19:08 | NUR ---
MS GONGORA CLOSING NOTES PATIENT NOT IN THE UNIT AT THIS TIME. PT IS A/O X4, ABLE TO MAKE NEEDS KNOWN. AMBULATORY NO ACUTE DISTRESS NOTED. PT ON CLINICAL TRIAL MEDICATION, NO AKATHISIA, EPS OR TREMORS NOTED. WILL CONTINUE TO MONITOR. Addendum: 09/07/22 at 2025 by ARIANNE EDDY RN OPENING NOTE
--- NOTE | 2022-09-07 21:46 | NUR ---
RN NOTES PATIENT RETURNED TO UNIT, NOW RESTING IN BED. WILL CONTINUE TO MONITOR.
--- NOTE | 2022-09-08 07:52 | NUR ---
RN OPENING NOTES PATIENT AWAKE IN ROOM RESTING, A/O X 4. NO S/S OF PAIN NOTED AT THIS TIME. ON ROOM AIR, NO DISTRESS OR SHORTNESS OF BREATH NOTED. NO IV ACCESS, CLINICAL TRIAL PATIENT. FALL AND SAFETY MEASURES IN PLACE, BED IN LOW LOCK POSITION, CALL LIGHT AND TABLE WITHIN EASY REACH, SIDE RAILS UP X2. WILL CONTINUE TO MONITOR.
[2022-09-08] MEDS: INVEST MED CVL-231-2002 PO SCH (10:54)
--- NOTE | 2022-09-08 19:50 | NUR ---
RN CLOSING NOTES PATIENT AWAKE IN ROOM RESTING, A/O X 4. NO S/S OF PAIN NOTED AT THIS TIME. ON ROOM AIR, NO DISTRESS OR SHORTNESS OF BREATH NOTED. NO IV ACCESS, CLINICAL TRIAL PATIENT. FALL AND SAFETY MEASURES IN PLACE, BED IN LOW LOCK POSITION, CALL LIGHT AND TABLE WITHIN EASY REACH, SIDE RAILS UP X2. WILL ENDORSE TO CAR CONDITIONER.
[2022-09-08 20:00] VITALS: BP_SYST 127; BP_SYST 131; BP_DIAS 86; BP_DIAS 96
--- NOTE | 2022-09-09 06:36 | NUR ---
RN CLOSING NOTES PATIENT AWAKE IN ROOM RESTING, A/O X 4. NO S/S OF PAIN NOTED AT THIS TIME. ON ROOM AIR, NO DISTRESS OR SHORTNESS OF BREATH NOTED. NO IV ACCESS, CLINICAL TRIAL PATIENT. FALL AND SAFETY MEASURES IN PLACE, BED IN LOW LOCK POSITION, CALL LIGHT AND TABLE WITHIN EASY REACH, SIDE RAILS UP X2.
[2022-09-09 08:00] VITALS: BP 162/71
[2022-09-09] MEDS: INVEST MED CVL-231-2002 PO SCH (09:51)
[2022-09-09 16:00] VITALS: BP 151/89
--- NOTE | 2022-09-09 19:20 | NUR ---
MS RN OPENING NOTES RECEIVED PATIENT LAYING IN BED. A/O X4. ABLE TO MAKE NEEDS KNOWN. DENIES PAIN OR ANY DISCOMFORT AT THIS TIME. ON ROOM AIR. NO S/S OF RESPIRATORY DISTRESS NOTED. BREATHING EVEN AND UNLABORED. PT IS ON CLINICAL TRIAL. NO IV ACCESS. SAFETY MEASURES MAINTAINED: CALL LIGHT WITHIN REACH, BED LOCKED IN THE LOWEST POSITION, SIDE RAILS UP X2. WILL CONTINUE TO MONITOR AND PROVIDE QUALITY CARE TO THIS PT .
[2022-09-09 20:00] VITALS: BP 109/73
--- NOTE | 2022-09-10 07:30 | NUR ---
RN OPENING NOTE-PT AWAKE A/O X4. ABLE TO MAKE NEEDS KNOWN. DENIES PAIN OR ANY DISCOMFORT AT THIS TIME. ON ROOM AIR. NO S/S OF RESPIRATORY DISTRESS NOTED. BREATHING EVEN AND UNLABORED. PT IS ON CLINICAL TRIAL. NO BEHAVIORAL ISSUES, NO EPS OR TREMORS, NO IV ACCESS. SAFETY MEASURES MAINTAINED: CALL LIGHT WITHIN REACH, BED LOCKED IN THE LOWEST POSITION, SIDE RAILS UP X2. WILL CONTINUE TO MONITOR / ASSIST. .
--- NOTE | 2022-09-10 07:31 | NUR ---
MS RN CLOSING NOTES PATIENT IS AWAKE IN BED. A/O X4. ABLE TO MAKE NEEDS KNOWN, DENIES PAIN OR ANY DISCOMFORT AT THIS TIME. ON ROOM AIR. NO S/S OF RESPIRATORY DISTRESS NOTED. BREATHING EVEN AND UNLABORED. PT IS ON CLINICAL TRIAL. NO IV ACCESS. SAFETY MEASURES MAINTAINED: CALL LIGHT WITHIN REACH, BED LOCKED IN THE LOWEST POSITION, SIDE RAILS UP X2. WILL ENDORSE NEXT SHIFT NURSE FOR CONTINUE CARE.
[2022-09-10 08:00] VITALS: BP 130/99
[2022-09-10] MEDS: INVEST MED CVL-231-2002 PO SCH (09:59)
[2022-09-10 16:00] VITALS: BP 127/76
--- NOTE | 2022-09-10 18:32 | NUR ---
RN CLOSING NOTE PATIENT IS AWAKE . AMBULATING IN HALLS A/O X4. ABLE TO MAKE NEEDS KNOWN, DENIES PAIN OR ANY DISCOMFORT AT THIS TIME. ON ROOM AIR. NO S/S OF RESPIRATORY DISTRESS NOTED. BREATHING EVEN AND UNLABORED. NO EPS. NO TREMORS, NO HALLUCINATIONS. PT IS ON CLINICAL TRIAL. NO IV ACCESS. SAFETY MEASURES MAINTAINED: CALL LIGHT WITHIN REACH, BED LOCKED IN THE LOWEST POSITION, SIDE RAILS UP X2.MONITOR / ASSIST
--- NOTE | 2022-09-10 19:20 | NUR ---
RN OPENING NOTE PATIENT AWAKE IN ROOM WATCHING TV, PT ALERT/ORIENTED X 4, PT ABLE TO MAKE NEEDS KNOWN. PATIENT STABLE ON RA, NO S/S OF DISTRESS OR SOB NOTED, BREATHING EVEN AND UNLABORED. NO IV ACCESS D/T CLINICAL TRIAL STATUS. PATIENT AMBULATORY WITH STEADY GAIT. SAFETY MEASURES IN PLACE: CALL LIGHT WITHIN REACH, SIDE RAILS UP X 2, BED LOCKED IN LOWEST POSITION. WILL CONTINUE TO MONITOR PATIENT
[2022-09-10 20:00] VITALS: BP 137/97
--- NOTE | 2022-09-11 06:47 | NUR ---
RN CLOSING NOTE PATIENT AWAKE, A/O X 4, PT ABLE TO MAKE NEEDS KNOWN. PT DENIES PAIN OR ANY DISCOMFORT AT THIS TIME. PT STABLE ON ROOM AIR, NO S/S OF RESPIRATORY DISTRESS OR SOB NOTED, BREATHING EVEN AND UNLABORED. NO BEHAVIORAL ISSUES, NO EPS OR TREMORS. PT NEEDS MET THROUGHOUT SHIFT. SAFETY MEASURES MAINTAINED: CALL LIGHT WITHIN REACH, BED LOCKED IN THE LOWEST POSITION, SIDE RAILS UP X2. WILL ENDORSE TO DAYSHIFT NURSE FOR CONTINUITY OF CARE
[2022-09-11 07:00] VITALS: BP 145/105
--- NOTE | 2022-09-11 07:36 | NUR ---
RN OPENING NOTE RECEIVED PATIENT SLEEPS IN BED. AWAKE UPON CALLING HIS NAME. PT IS ALERT/ORIENTED X 4, PT ABLE TO MAKE NEEDS KNOWN. PATIENT STABLE ON RA, NO S/S OF DISTRESS OR SOB NOTED, BREATHING EVEN AND UNLABORED. NO IV ACCESS FOR CLINICAL TRIAL STATUS. PATIENT AMBULATORY WITH STEADY GAIT. ALL SAFETY MEASURES IN PLACE: CALL LIGHT WITHIN REACH, SIDE RAILS UP X 2, BED LOCKED IN LOWEST POSITION. WILL CONTINUE TO MONITOR PATIENT
[2022-09-11] MEDS: INVEST MED CVL-231-2002 PO SCH (09:57)
[2022-09-11] MEDS ORDERED: ZOLPIDEM TARTRATE 10 MG TABLET PO PRN (13:00)
[2022-09-11 16:00] VITALS: BP_SYST 128; BP_SYST 135; BP_DIAS 86; BP_DIAS 92
--- NOTE | 2022-09-11 18:30 | NUR ---
RN CLOSING NOTE PATIENT AWAKE IN BED. PT IS ALERT/ORIENTED X 4, PT ABLE TO MAKE NEEDS KNOWN. PATIENT STABLE ON RA, NO S/S OF DISTRESS OR SOB NOTED, BREATHING EVEN AND UNLABORED. NO IV ACCESS FOR CLINICAL TRIAL STATUS. PATIENT AMBULATORY WITH STEADY GAIT. ALL SAFETY MEASURES IN PLACE: CALL LIGHT WITHIN REACH, SIDE RAILS UP X 2, BED LOCKED IN LOWEST POSITION. NO BEHAVIORAL ISSUE NOTED. WILL ENDORSE FOR ERIK.
--- NOTE | 2022-09-11 18:59 | NUR ---
RN OPENING NOTE PATIENT AWAKE IN BED. PT IS ALERT/ORIENTED X 4, PT ABLE TO MAKE NEEDS KNOWN. PATIENT STABLE ON RA, NO S/S OF DISTRESS OR SOB NOTED, BREATHING EVEN AND UNLABORED. NO IV ACCESS FOR CLINICAL TRIAL STATUS. PATIENT AMBULATORY WITH STEADY GAIT. ALL SAFETY MEASURES IN PLACE: CALL LIGHT WITHIN REACH, SIDE RAILS UP X 2, BED LOCKED IN LOWEST POSITION. NO BEHAVIORAL ISSUE NOTED AT THIS TIME.
[2022-09-11 20:00] VITALS: BP 132/87
--- NOTE | 2022-09-12 08:17 | NUR ---
RN OPENING NOTE PATIENT RECEIVED IN BED, AO X 4, FORGETFUL AND ANXIOUS, ABLE TO RESPONDS ALL STIMULI. IN NO ACUTE DISTRESS NOTED. RESPIRATORY EVEN AND UNLABORED IN ROOM AIR. SKIN IS WARM TO TOUCH, KEEP CLEAN/DRY. KEPT ELEVATED HOB FOR ENSURE AIRWAY AND ASPIRATION PRECAUTION, ALSO LOWEST POSITION OF THE BED, S/R UP X 2. ALL SAFETY PRECAUTION APPLIED. CALL LIGHT WITHIN REACH, WILL CONTINUE TO MONITOR.
[2022-09-12] MEDS: INVEST MED CVL-231-2002 PO SCH (10:00)
--- NOTE | 2022-09-12 18:00 | NUR ---
RN CLOSING NOTE PATIENT IN BED RESTING. IN NO ACUTE DISTRESS NOTED, RESPIRATORY EVEN AND UNLABORED IN ROOM AIR. SKIN IS WARM TO TOUCH, KEEP CLEAN/DRY. KEPT ELEVATED HOB FOR ENSURE AIRWAY AND ASPIRATION PRECAUTION. BED IN LOWEST POSITION AND LOCKED. BED ALARM IS ON AT ALL THE TIMES. ALL SAFETY MEASURE APPLIED. CALL LIGHT WITHIN REACH, WILL ENDORSED TO NEXT SHIFT.
[2022-09-12 20:00] VITALS: BP 127/89
--- NOTE | 2022-09-13 06:47 | NUR ---
RN CLOSING NOTE PATIENT RECEIVED IN BED, AO X 4, FORGETFUL AND ANXIOUS, ABLE TO RESPONDS ALL STIMULI. IN NO ACUTE DISTRESS NOTED. RESPIRATORY EVEN AND UNLABORED IN ROOM AIR. SKIN IS WARM TO TOUCH, KEEP CLEAN/DRY. KEPT ELEVATED HOB FOR ENSURE AIRWAY AND ASPIRATION PRECAUTION, ALSO LOWEST POSITION OF THE BED, S/R UP X 2. ALL SAFETY PRECAUTION APPLIED. CALL LIGHT WITHIN REACH, WILL ENDORSE CARE TO DAY SHIFT NURSE.
--- NOTE | 2022-09-13 07:40 | NUR ---
RN OPENING NOTE RECEIVED PATIENT IN HIS ROOM, BRUSHING HIS TEETH, A/OX4. NO S/S OF DISTRESS, BREATHING WITHOUT DIFFICULTY ON ROOM AIR. AMBULATORY, ABLE TO MAKE NEEDS KNOWN. SAFETY MEASURES CHECKED IN HIS ROOM: BED LOCKED AND AT LOWEST POSITION, RAILS UP X2, CALL LIGHT AND TRAY TABLE WITHIN REACH. BOARD UPDATED FOR HIS REFERENCE. REMINDED PT HE WILL BE ON NPO STARTING 2100 TONIGHT, PATIENT VERBALIZED UNDERSTANDING. WILL MONITOR DURING MY SHIFT FOR ANY CHANGE OF BEHAVIOR PATTERNS AND SAFETY.
[2022-09-13 08:00] VITALS: BP 156/108
[2022-09-13] MEDS: INVEST MED CVL-231-2002 PO SCH (09:56)
[2022-09-13 16:00] VITALS: BP 136/93
--- NOTE | 2022-09-13 19:15 | NUR ---
MS RN CLOSING NOTES PT IN HIS ROOM, WATCHING TV, A/O X4. ABLE TO MAKE NEEDS KNOWN. ON ROOM AIR, TOLERATING WELL, BREATHING EVEN AND UNLABORED. NO IV ACCESS PER CT PROTOCOL. NO UNUSUAL BEHAVIOR EXHIBITED NOTED DURING SHIFT. SAFETY MEASURES MAINTAINED: BED IN LOWEST LOCKED POSITION, SIDE-RAILS UP APPROPRIATE AND CALL LIGHT WITHIN EASY REACH OF PT. NPO AFTER 2100 TONIGHT, PATIENT IS AWARE. ENDORSED TO MEDICAL TRANSCRIPTION EDITOR NURSE.
--- NOTE | 2022-09-13 20:00 | NUR ---
RN OPENING NOTE RECEIVED PATIENT IN HIS ROOM, LYING AND AWAKE, A/OX4. NO S/S OF DISTRESS, BREATHING WITHOUT DIFFICULTY ON ROOM AIR. AMBULATORY, ABLE TO MAKE NEEDS KNOWN. SAFETY MEASURES CHECKED IN HIS ROOM: BED LOCKED AND AT LOWEST POSITION, RAILS UP X2, CALL LIGHT AND TRAY TABLE WITHIN REACH. BOARD UPDATED FOR HIS REFERENCE. REMINDED PT HE WILL BE ON NPO STARTING 2100 TONIGHT, PATIENT VERBALIZED UNDERSTANDING. WILL MONITOR DURING MY SHIFT FOR ANY CHANGE OF BEHAVIOR PATTERNS AND SAFETY. Addendum: 09/13/22 at 2205 by SHYLA MCCAULEY RN PATIENT REFUSED TAKING OF VITAL SIGNS, REQUESTED NOT TO BE DISTURBED.
--- NOTE | 2022-09-14 06:51 | NUR ---
MS RN CLOSING NOTES PT IN HIS ROOM, WATCHING TV, A/O X4. ABLE TO MAKE NEEDS KNOWN. ON ROOM AIR, TOLERATING WELL, BREATHING EVEN AND UNLABORED. NO IV ACCESS PER CT PROTOCOL. NO UNUSUAL BEHAVIOR EXHIBITED NOTED DURING SHIFT. SAFETY MEASURES MAINTAINED: BED IN LOWEST LOCKED POSITION, SIDE-RAILS UP APPROPRIATE AND CALL LIGHT WITHIN EASY REACH OF PT. NPO STARTED AT 9PM. PATIENT IS AWARE. ENDORSED TO DAY SHIFT NURSE FOR ERIK.
[2022-09-14 08:25] VITALS: BP 124/84
[2022-09-14] MEDS: INVEST MED CVL-231-2002 PO SCH (10:05)
--- NOTE | 2022-09-14 17:05 | NUR ---
MS RN OPENING NOTE RECEIVED PATIENT AWAKE IN ROOM, ALERT/ORIENTED X 4, ABLE TO VERBALIZE NEEDS. PT ORIENTED TO AM STAFF. PATIENT IS ON RA, NO S/S OF SOB AND ACUTE DISTRESS NOTED. PT DENIES PAIN. SAFETY MEASURES IN PLACE: CALL LIGHT WITHIN REACH, SIDE RAILS UP X 2, BED LOCKED IN LOWEST POSITION, WILL CONTINUE WITH PLAN OF CARE DURING SHIFT. Addendum: 09/14/22 at 1705 by NISH ROWLAND RN OPENING NOTES [id number]
--- NOTE | 2022-09-14 18:53 | NUR ---
MS RN CLOSING NOTES: PATIENT AWAKE IN ROOM, ALERT/ORIENTED X 4, ABLE TO VERBALIZE NEEDS. PATIENT IS ON RA, NO S/S OF SOB AND ACUTE DISTRESS NOTED. PT DENIES PAIN. PT ASKED FOR APPLE JUICE AND JACKELINE CRACKERS. SAFETY MEASURES IN PLACE: CALL LIGHT WITHIN REACH, SIDE RAILS UP X 2, BED LOCKED IN LOWEST POSITION, WILL ENDORSE TO PM SHIFT.
--- NOTE | 2022-09-14 19:51 | NUR ---
RN OPENING NOTES RECEIVED PT IN BED, AWAKE. AOx4, ABLE TO MAKE NEEDS KNOWN. ON RA AND TOLERATING WELL. NO SOB NOTED. NO S/SX OF RESPIRATORY DISTRESS NOTED. NO IV ACCESS SINCE PT IS CLINICAL TRIAL. SAFETY PRECAUTIONS IN PLACE: BED IN LOWEST, LOCKED POSITION, SIDERAILS UP x2, AND BRAKES ON. TABLE AND CALL LIGHT WITHIN REACH. ALL NEEDS MET AT THIS TIME.
[2022-09-14 20:00] VITALS: BP 126/71
--- NOTE | 2022-09-15 06:48 | NUR ---
RN CLOSING NOTES PT IN BED, AWAKE. AOx4, ABLE TO MAKE NEEDS KNOWN. ON RA AND TOLERATING WELL. NO SOB NOTED. NO S/SX OF RESPIRATORY DISTRESS NOTED. NO IV ACCESS SINCE PT IS CLINICAL TRIAL. ALL ORDERS CARRIED OUT. ALL NEEDS MET. PT KEPT CLEAN AND DRY. SAFETY PRECAUTIONS IN PLACE: BED IN LOWEST, LOCKED POSITION, SIDERAILS UP x2, AND BRAKES ON. TABLE AND CALL LIGHT WITHIN REACH. WILL ENDORSE TO ONCOMING SHIFT FOR ERIK.
--- NOTE | 2022-09-15 07:01 | NUR ---
MS RN OPENING NOTES RECEIVED PT IN BED, AWAKE. AOx4, ABLE TO MAKE NEEDS KNOWN. ON RA AND TOLERATING WELL. NO SOB NOTED. NO S/SX OF RESPIRATORY DISTRESS NOTED. NO IV ACCESS. PT IS CLINICAL TRIAL. SAFETY PRECAUTIONS IN PLACE: BED IN LOWEST, LOCKED POSITION, SIDERAILS UP x2, BRAKES ON. TABLE AND CALL LIGHT WITHIN REACH, WILL CONT WITH PLAN OF CARE DURING SHIFT.
[2022-09-15 08:03] VITALS: BP 128/82
[2022-09-15] MEDS: INVEST MED CVL-231-2002 PO SCH (09:43)
[2022-09-15] MEDS ORDERED: LORAZEPAM 1 MG TABLET FOR AGITATION PO PRN (13:00)
[2022-09-15 16:00] VITALS: BP 119/88
[2022-09-15 20:00] VITALS: BP 131/80
--- NOTE | 2022-09-15 20:15 | NUR ---
MS RN NOTES: PT HAS NO PHYSICAL AND BEHAVIORAL CHANGES DURING SHIFT. INVESTIGATIONAL MED GIVEN @ 1000. VITALS, WNL AND NO ACUTE DISTRESS NOTED DURING AM SHIFT; ENDORSED TO PM SHIFT.
--- NOTE | 2022-09-15 20:21 | NUR ---
RN OPENING NOTES RECEIVED PT IN BED, ASLEEP, AWAKENS TO VERBAL STIMULI. AOx4, ABLE TO MAKE NEEDS KNOWN. ON RA AND TOLERATING WELL. NO SOB NOTED. NO S/SX OF RESPIRATORY DISTRESS NOTED. NO IV ACCESS SINCE PT IS CLINICAL TRIAL. SAFETY PRECAUTIONS IN PLACE: BED IN LOWEST, LOCKED POSITION, SIDERAILS UP x2, AND BRAKES ON. TABLE AND CALL LIGHT WITHIN REACH. ALL NEEDS MET AT THIS TIME.
--- NOTE | 2022-09-16 06:46 | NUR ---
RN CLOSING NOTES PT IN ROOM, AWAKE. AOx4, ABLE TO MAKE NEEDS KNOWN. ON RA AND TOLERATING WELL. NO SOB NOTED. NO S/SX OF RESPIRATORY DISTRESS NOTED. NO IV ACCESS SINCE PT IS CLINICAL TRIAL. ALL ORDERS CARRIED OUT. ALL NEEDS MET. PT KEPT CLEAN AND DRY. SAFETY PRECAUTIONS IN PLACE: BED IN LOWEST, LOCKED POSITION, SIDERAILS UP x2, AND BRAKES ON. TABLE AND CALL LIGHT WITHIN REACH. WILL ENDORSE TO ONCOMING SHIFT FOR ERIK.
--- NOTE | 2022-09-16 07:30 | NUR ---
RN Receiving Report Patient AOx4 able to express his own concerns. Patient performing personal care in his room. Discussed plan of care, patient agrees. Will monitor and provide care as needed throughout shift. All safety precautions taken, call light and table within reach, bed at lowest position.
[2022-09-16] MEDS: INVEST MED CVL-231-2002 PO SCH (09:13)
--- NOTE | 2022-09-16 17:58 | NUR ---
RN closing report. Patient AOx4, no incidents throughout shift. Patient remained safe, all medications administered as prescribed. All safety precautions taken, call light and table within reach
--- NOTE | 2022-09-16 19:32 | NUR ---
RN Opening report. Patient AOx4 All safety precautions taken, call light and table within reach.
[2022-09-16 20:06] VITALS: BP 116/82
--- NOTE | 2022-09-17 06:25 | NUR ---
RN CLOSING NOTES PT IN ROOM, AWAKE. AOx4, ABLE TO MAKE NEEDS KNOWN. ON RA AND TOLERATING WELL. NO SOB NOTED. NO S/SX OF RESPIRATORY DISTRESS NOTED. NO IV ACCESS SINCE PT IS CLINICAL TRIAL. ALL NEEDS MET. PT KEPT CLEAN AND DRY. SAFETY PRECAUTIONS IN PLACE: BED IN LOWEST, LOCKED POSITION, SIDERAILS UP x2, AND BRAKES ON. TABLE AND CALL LIGHT WITHIN REACH. WILL ENDORSE TO ONCOMING SHIFT FOR ERIK.
[2022-09-17 08:25] VITALS: BP 132/92
[2022-09-17] MEDS: INVEST MED CVL-231-2002 PO SCH (08:56)
--- NOTE | 2022-09-17 18:52 | NUR ---
RN Closing Report Patient AOx4 able to express his own concerns. Patient remained safe throughout shift, all safety precautions taken, call light and table within reach, bed at lowest position.
[2022-09-17 20:00] VITALS: BP 89/47
--- NOTE | 2022-09-17 22:10 | NUR ---
RN OPENING NOTES PT IN ROOM, AWAKE. AOx4, ABLE TO MAKE NEEDS KNOWN. ON RA AND TOLERATING WELL. NO SOB NOTED. NO S/SX OF RESPIRATORY DISTRESS NOTED. NO IV ACCESS SINCE PT IS CLINICAL TRIAL. ALL NEEDS MET. SAFETY PRECAUTIONS IN PLACE: BED IN LOWEST, LOCKED POSITION, SIDERAILS UP x2, AND BRAKES ON. TABLE AND CALL LIGHT WITHIN REACH.
--- NOTE | 2022-09-18 06:32 | NUR ---
RN CLOSING NOTES PT IN ROOM, AWAKE. AOx4, ABLE TO MAKE NEEDS KNOWN. ON RA AND TOLERATING WELL. NO SOB NOTED. NO S/SX OF RESPIRATORY DISTRESS NOTED. NO IV ACCESS SINCE PT IS CLINICAL TRIAL. ALL NEEDS MET. SAFETY PRECAUTIONS IN PLACE: BED IN LOWEST, LOCKED POSITION, SIDERAILS UP x2, AND BRAKES ON. TABLE AND CALL LIGHT WITHIN REACH. WILL ENDORSE CARE TO DAY SHIFT NURSE.
--- NOTE | 2022-09-18 07:30 | NUR ---
PT IN ROOM, AWAKE. AOx4, ABLE TO MAKE NEEDS KNOWN. ON RA AND TOLERATING WELL. NO SOB NOTED. NO S/SX OF RESPIRATORY DISTRESS NOTED. NO IV ACCESS SINCE PT IS CLINICAL TRIAL. WILL DC TODAY, ALL NEEDS MET. SAFETY PRECAUTIONS IN PLACE: BED IN LOWEST, LOCKED POSITION, SIDERAILS UP x2, AND BRAKES ON. TABLE AND CALL LIGHT WITHIN REACH.
[2022-09-18] MEDS: INVEST MED CVL-231-2002 PO SCH (09:26)
[2022-09-18 09:33] VITALS: BP 122/91
--- NOTE | 2022-09-18 10:45 | NUR ---
RN NOTE- DISCHARGED INTO CARE OF DR STEPHEN OFFICE. DC INSTRUCTIONS PROVIDED. AOX4, VS STABLE. ESCORTED OFF UNIT BY STAFF
== END 2022-09-18 10:00 | disposition home or self-care (01) | DRG 951 ==
LOC: MED 13:51
PROVIDERS: ADMIT Psychiatry & Neurology Psychiatry; ATTEND Psychiatry & Neurology Psychiatry
DX: Z00.6 Encounter for examination for normal comparison and control in clinical research program (principal); F20.0 Paranoid schizophrenia; Z79.899 Other long term (current) drug therapy; Z80.42 Family history of malignant neoplasm of prostate; G47.00 Insomnia, unspecified; F51.05 Insomnia due to other mental disorder; Z81.8 Family history of other mental and behavioral disorders; F41.9 Anxiety disorder, unspecified
CPT/HCPCS: 87081-TC; G0378

== ENCOUNTER 2023-02-12 13:10 | Inpatient (IN) | payer OTHER ==
[~2023-02-12] VITALS: Ht 190.5 cm; Wt 88.5 kg
[~2023-02-12 13:10] MED LIST: LORAZEPAM 1 MG TABLET FOR AGITATION/ANXIETY PO PRN; ZOLPIDEM TARTRATE 10 MG TABLET PO PRN
[2023-02-12] MEDS ORDERED: MAG HYDROX/AL HYDROX/SIMETH 30 ML UDC PO PRN (15:00)
[2023-02-12] MEDS ORDERED: MAGNESIUM HYDROXIDE 30 ML UDC PO PRN (15:00)
[2023-02-12] MEDS ORDERED: ACETAMINOPHEN ES 500 MG TABLET PO PRN (15:00)
[2023-02-12] MEDS ORDERED: IBUPROFEN 200 MG TABLET PO PRN (15:00)
[2023-02-12 18:40] VITALS: BP 124/97
[2023-02-12 18:44] VITALS: BP 124/97
[2023-02-12 20:00] VITALS: BP 156/84
[2023-02-12] MEDS ORDERED: RISPERDAL PO SCH (22:00)
[2023-02-13 15:59] VITALS: BP 136/86
[2023-02-13 20:00] VITALS: BP 134/85
[2023-02-13] MEDS: RISPERDAL PO SCH (22:34)
[2023-02-14 08:00] VITALS: BP 127/88
[2023-02-14 16:00] VITALS: BP 129/88
[2023-02-14] MEDS: RISPERDAL PO SCH (21:51)
[2023-02-15 07:00] VITALS: BP 120/86
[2023-02-15 16:00] VITALS: BP 142/84
[2023-02-15 20:00] VITALS: BP 134/81
[2023-02-16 15:45] VITALS: BP 137/85
[2023-02-17 08:00] VITALS: BP 133/83
[2023-02-17] MEDS ORDERED: LORAZEPAM 1 MG TABLET FOR AGITATION/ANXIETY PO PRN (12:00)
[2023-02-17] MEDS ORDERED: ZOLPIDEM TARTRATE 10 MG TABLET PO PRN (12:00)
[2023-02-17 16:00] VITALS: BP 116/82
[2023-02-18 07:00] VITALS: BP 130/68
[2023-02-19] VITALS: BP 126/70
[2023-02-19] MEDS: INVESTIGATIONAL MED RVP -30-001 PO SCH (08:16)
[2023-02-19 20:00] VITALS: BP 137/84
[2023-02-20 08:00] VITALS: BP 146/94
[2023-02-20] MEDS: INVESTIGATIONAL MED RVP -30-001 PO SCH (08:00)
[2023-02-20 20:00] VITALS: BP 154/100
[2023-02-21 08:00] VITALS: BP 139/97
[2023-02-21] MEDS: INVESTIGATIONAL MED RVP -30-001 PO SCH (08:54)
[2023-02-21 16:00] VITALS: BP 126/83
[2023-02-21 20:00] VITALS: BP 142/94
[2023-02-22 07:00] VITALS: BP 166/92
[2023-02-22] MEDS: INVESTIGATIONAL MED RVP -30-001 PO SCH (08:03)
[2023-02-22] MEDS ORDERED: ZOLPIDEM TARTRATE 10 MG TABLET PO PRN (12:00)
[2023-02-22] MEDS ORDERED: LORAZEPAM 1 MG TABLET FOR AGITATION/ANXIETY PO PRN (12:00)
[2023-02-23 07:30] VITALS: BP 144/100
[2023-02-23] MEDS: INVESTIGATIONAL MED RVP -30-001 PO SCH (08:16)
[2023-02-24] MEDS: INVESTIGATIONAL MED RVP -30-001 PO SCH (07:54)
[2023-02-24 08:00] VITALS: BP 154/103
[2023-02-24] MEDS ORDERED: ZOLPIDEM TARTRATE 10 MG TABLET PO PRN (12:00)
[2023-02-24 15:28] VITALS: BP 155/104
[2023-02-24 20:00] VITALS: BP 142/99
[2023-02-25] MEDS: INVESTIGATIONAL MED RVP -30-001 PO SCH (08:14)
[2023-02-25] MEDS: LORAZEPAM 1 MG TABLET FOR AGITATION/ANXIETY PO PRN (09:00)
[2023-02-25 15:39] VITALS: BP 119/98
[2023-02-26 08:00] VITALS: BP 139/86
[2023-02-26] MEDS: INVESTIGATIONAL MED RVP -30-001 PO SCH (08:01)
[2023-02-26] MEDS: LORAZEPAM 1 MG TABLET FOR AGITATION/ANXIETY PO PRN ×2 (09:03→10:38)
[2023-02-26 16:00] VITALS: BP 122/88
[2023-02-26 20:00] VITALS: BP 132/96
[2023-02-27] MEDS: INVESTIGATIONAL MED RVP -30-001 PO SCH (08:00)
[2023-02-27] MEDS: LORAZEPAM 1 MG TABLET FOR AGITATION/ANXIETY PO PRN (08:25)
[2023-02-27 20:00] VITALS: BP 117/77
[2023-02-28] MEDS: INVESTIGATIONAL MED RVP -30-001 PO SCH (07:56)
[2023-02-28 08:16] VITALS: BP 114/86
[2023-02-28 20:00] VITALS: BP 115/88
[2023-03-01 07:00] VITALS: BP 118/63
[2023-03-01] MEDS: INVESTIGATIONAL MED RVP -30-001 PO SCH (08:07)
[2023-03-01 20:00] VITALS: BP 135/86
[2023-03-02 08:00] VITALS: BP_SYST 140; BP_SYST 143; BP_DIAS 78; BP_DIAS 88
[2023-03-02] MEDS: INVESTIGATIONAL MED RVP -30-001 PO SCH (08:23)
[2023-03-02 20:00] VITALS: BP 137/83
[2023-03-03 08:00] VITALS: BP 129/99
[2023-03-03] MEDS: INVESTIGATIONAL MED RVP -30-001 PO SCH (08:18)
[2023-03-03 16:00] VITALS: BP 112/86
[2023-03-04 07:00] VITALS: BP 128/86
[2023-03-04] MEDS: INVESTIGATIONAL MED RVP -30-001 PO SCH (08:23)
[2023-03-04] MEDS ORDERED: ZOLPIDEM TARTRATE 10 MG TABLET PO PRN (12:00)
[2023-03-04] MEDS ORDERED: LORAZEPAM 1 MG TABLET FOR AGITATION/ANXIETY PO PRN (12:00)
[2023-03-04 20:00] VITALS: BP 129/74
[2023-03-05 08:00] VITALS: BP 133/84
[2023-03-05] MEDS: INVESTIGATIONAL MED RVP -30-001 PO SCH (08:40)
[2023-03-05 09:43] VITALS: BP 135/84
[2023-03-05 20:00] VITALS: BP 124/91
[2023-03-06] MEDS: INVESTIGATIONAL MED RVP -30-001 PO SCH (07:55)
[2023-03-06 08:00] VITALS: BP 122/80
[2023-03-06 20:00] VITALS: BP 124/86
[2023-03-07 08:00] VITALS: BP 109/71
[2023-03-07] MEDS: INVESTIGATIONAL MED RVP -30-001 PO SCH (08:06)
[2023-03-07 20:00] VITALS: BP 124/84
[2023-03-08 07:00] VITALS: BP 146/98
[2023-03-08] MEDS: INVESTIGATIONAL MED RVP -30-001 PO SCH (08:04)
[2023-03-09 08:00] VITALS: BP 123/88
[2023-03-09] MEDS: INVESTIGATIONAL MED RVP -30-001 PO SCH (08:01)
[2023-03-09 20:00] VITALS: BP 120/81
[2023-03-10] MEDS: INVESTIGATIONAL MED RVP -30-001 PO SCH (07:59)
[2023-03-10] MEDS ORDERED: ZOLPIDEM TARTRATE 10 MG TABLET PO PRN (12:00)
[2023-03-10 20:00] VITALS: BP 139/76
[2023-03-11] MEDS: LORAZEPAM 1 MG TABLET FOR AGITATION/ANXIETY PO PRN (07:51)
[2023-03-11 08:02] VITALS: BP 119/84
[2023-03-11] MEDS: INVESTIGATIONAL MED RVP -30-001 PO SCH (08:05)
[2023-03-11 21:30] VITALS: BP 133/83
[2023-03-11 21:40] VITALS: BP 133/83
[2023-03-12] MEDS: LORAZEPAM 1 MG TABLET FOR AGITATION/ANXIETY PO PRN (06:32)
[2023-03-12] MEDS: INVESTIGATIONAL MED RVP -30-001 PO SCH (07:56)
[2023-03-12 20:00] VITALS: BP_SYST 114; BP_SYST 133; BP_DIAS 63; BP_DIAS 85
[2023-03-13 07:00] VITALS: BP 130/76
[2023-03-13] MEDS: INVESTIGATIONAL MED RVP -30-001 PO SCH (07:59)
[2023-03-13 20:00] VITALS: BP 140/70
[2023-03-14] MEDS: INVESTIGATIONAL MED RVP -30-001 PO SCH (07:59)
[2023-03-14 20:15] VITALS: BP 123/83
[2023-03-15 08:03] VITALS: BP 140/95
[2023-03-15] MEDS: INVESTIGATIONAL MED RVP -30-001 PO SCH (08:12)
[2023-03-15 23:00] VITALS: BP 130/81
[2023-03-16] MEDS: INVESTIGATIONAL MED RVP -30-001 PO SCH (07:54)
[2023-03-16 08:00] VITALS: BP 143/94
[2023-03-16 21:00] VITALS: BP 137/82
[2023-03-17] MEDS ORDERED: LORAZEPAM 1 MG TABLET FOR AGITATION/ANXIETY PO PRN (12:00)
[2023-03-17] MEDS ORDERED: ZOLPIDEM TARTRATE 10 MG TABLET PO PRN (12:00)
== END 2023-03-17 08:45 | disposition home or self-care (01) | DRG 951 ==
LOC: GPSOV 14:41 → MED 17:55
PROVIDERS: ADMIT Psychiatry & Neurology Psychiatry; ATTEND Psychiatry & Neurology Psychiatry
DX: Z00.6 Encounter for examination for normal comparison and control in clinical research program (principal); F20.0 Paranoid schizophrenia; F10.21 Alcohol dependence, in remission; Z80.42 Family history of malignant neoplasm of prostate; Z81.8 Family history of other mental and behavioral disorders; Z79.899 Other long term (current) drug therapy
CPT/HCPCS: G0378